=== PATIENT | male | born 1950 | race Caucasian/White ===

== ENCOUNTER → 2016-09-26 | Outpatient (CLI) | payer MEDICARE, BC | LOC: OD 15:32 | PROVIDERS: ATTEND Family Medicine | DX: E11.9 Type 2 diabetes mellitus without complications (principal) | CPT/HCPCS: 36415; 83036 ==

== ENCOUNTER → 2017-04-17 | Outpatient (CLI) | payer MEDICARE, BC ==
[2017-04-17 10:26] LABS: ANION GAP 15 (5-19); BLOOD UREA NITROGEN 14 mg/dL (7-20); CALCIUM 9.1 mg/dL (8.4-10.2); CARBON DIOXIDE 25 mmol/L (22-30); CHLORIDE 101 mmol/L (98-107); CHOLESTEROL 103.35 mg/dL (0-200); Direct HDL 38 mg/dL (>40); GLUCOSE 169 mg/dL (75-110); POTASSIUM 3.7 mmol/L (3.6-5.0); SODIUM 140.5 mmol/L (137-145); TRIGLYCERIDES 60 mg/dL (<150)
[2017-04-17 10:37] LABS: DIRECT LDL 58 mg/dL (<100)
== END ==
LOC: OD 08:49
PROVIDERS: ATTEND Family Medicine
DX: E03.9 Hypothyroidism, unspecified (principal); E11.9 Type 2 diabetes mellitus without complications; E78.5 Hyperlipidemia, unspecified; I10 Essential (primary) hypertension; N52.9 Male erectile dysfunction, unspecified; Z79.899 Other long term (current) drug therapy
CPT/HCPCS: 36415; 80048; 80061; 82043; 83036; 84153; 84443

== ENCOUNTER 2017-05-10 09:44 | Day surgery (SDC) | payer MEDICARE, BC ==
[~2017-05-10 09:44] MED LIST: KETOROLAC TROMETHAMINE 0.45% 4 DROP/0.4 ML DROPERETTE OD PRN
[2017-05-10] MEDS ORDERED: LIDOCAINE 1% INJ-PF (10 MG/ML) 30 ML SDV ONE (09:50)
[2017-05-10] MEDS ORDERED: EPINEPHRINE INJ/PF 1 MG/1 ML AMPULE ONE (09:50)
[2017-05-10] MEDS ORDERED: CHONDR SU A NA/HYALUR INTRAOC KIT (SURGICARE) ONE (09:50)
[2017-05-10] MEDS: CYCLOPENTOLATE 0.2%/PHENYLEPHRINE 1% OPH SOLN 2 ML OD PRN ×3 (10:21→10:41)
[2017-05-10] MEDS: BESIFLOXACIN HCL 0.6% OPH SUSP 5 ML BOTTLE OD PRN ×3 (10:21→11:29)
[2017-05-10] MEDS: TROPICAMIDE 1% OPH SOLN 3 ML OD PRN ×3 (10:21→10:41)
[2017-05-10] MEDS: TETRACAINE HCL 0.5% OPH SOLN 2 ML OD PRN ×3 (10:22→10:54)
[2017-05-10] MEDS ORDERED: MIDAZOLAM 2 MG/2 ML INJ ONE (10:50)
[2017-05-10] MEDS ORDERED: FENTANYL CITRATE INJ/PF 100 MCG/2 ML AMPUL ONE (10:51)
--- NOTE | 2017-05-10 19:09 | [facility] OPERATIVE REPORT E ---
[facility] Operative Report NAME: MALCOM KENNEDY AGE: 66Y DATE OF SURGERY: 05/10/2017 ROOM: PREOPERATIVE DIAGNOSIS: CATARACT, RIGHT EYE. POSTOPERATIVE DIAGNOSIS: CATARACT, RIGHT EYE. OPERATION: Cataract extraction with toric IOL. SURGEON: BERTHA SANTIAGO M.D. ANESTHESIA: Topical. PROCEDURE: After obtaining appropriate consent, the patient's @ eye was prepped and draped in sterile fashion as well as the surgeon in a sterile manner and cataract surgery was started. First a paracentesis blade was used to make a small side-port incision. Viscoelastic was used to inflate the anterior chamber. Next a 2.4 mm incision was made with the paracentesis blade. A continuous capsulorrhexis incision was made using a cystotome and Utrata forceps. Following this hydrodissection was carried out to make the lens fully loose and mobile and it was rotated 172 degrees. Following this, a hmwwmz-bng-jtwzcnl technique was used to phacoemulsify the lens with a CDE of 9.21. The remaining cortex was removed with irrigation/aspiration. Provisc was instilled into the capsular bag to inflate the bag. A SN6AT7, 21.0 diopter lens was placed. The remaining viscoelastic material was removed with irrigation/aspiration. Following this, a 10-0 nylon suture was used to close the incision and it was found to be watertight. Vigamox was instilled in the eye and a protective shield was placed over the eye. The patient returned to the postoperative recovery in stable condition. DICTATING PHYSICIAN: BERTHA SANTIAGO M.D. [id number] PHY#: [id number] ID: [id number] JOB#: [id number] ACCT: [id number] cc:BERTHA SANTIAGO M.D. >
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
== END 2017-05-10 12:20 | disposition home or self-care (01) ==
LOC: SC 09:44
PROVIDERS: ATTEND Internal Medicine
PROC: 08RJ3JZ Replacement of Right Lens with Synthetic Substitute, Percutaneous Approach (ICD-10-PCS; principal; 2017-05-10 11:30)
DX: H25.11 Age-related nuclear cataract, right eye (principal); E11.9 Type 2 diabetes mellitus without complications; M19.90 Unspecified osteoarthritis, unspecified site; E03.9 Hypothyroidism, unspecified; I10 Essential (primary) hypertension; D64.9 Anemia, unspecified; Z79.82 Long term (current) use of aspirin; Z79.899 Other long term (current) drug therapy; Z86.73 Personal history of transient ischemic attack (TIA), and cerebral infarction without residual deficits
CPT/HCPCS: 82962; 66984; V2632; J2250; J3490 ×2; A9270; J0171; J3010; 142

== ENCOUNTER → 2017-05-14 | Outpatient (CLI) | payer MEDICARE, BC ==
--- NOTE | 2017-05-14 14:55 | RADIOLOGY REPORT (SQ) ---
EXAM DESCRIPTION: CAROTID DOPPLER COMPLETED DATE/TIME: 05/14/2017 11:45 am REASON FOR STUDY: R09.89 R09.89 OTH SYMPTOMS AND SIGNS INVOLVING THE CIRC AND RESP SY COMPARISON: CT BRAIN 04/17/2007 TECHNIQUE: Grayscale ultrasound, Doppler velocity and spectra, and color Doppler images acquired of the extra-cranial carotid and vertebral arteries. Images stored on PACS. LIMITATIONS: None. FINDINGS: RIGHT CAROTID CCA Velocities: Within normal limits. ICA Velocities Peak systolic 0.51 m/s. End diastolic 0.17 m/s. Proximal ICA/CCA peak systolic ratio 1.1. There is calcific plaque at the right carotid bifurcation. Immediately distal to the shadowing plaqu e, velocities suggest against flow significant stenosis LEFT CAROTID CCA Velocities: Within normal limits. ICA Velocities Peak systolic 0.63 m/s. End diastolic 0.23 m/s. Proximal ICA/CCA peak systolic ratio 0.9. There is calcific and noncalcific plaque at the left carotid bifurcation. Immediately distal to the shadowing plaque, velocities suggest against flow significant stenosis VERTEBRAL ARTERIES: Antegrade flow. Normal waveforms. SUBCLAVIAN ARTERIES: Not evaluated OTHER: No other significant finding. IMPRESSION: NO HEMODYNAMICALLY SIGNIFICANT STENOSIS. COMMENT: Quality ID #[id number]: Velocity criteria are extrapolated from the diameter data as defined by t he Society of Radiologists in Ultrasound Consensus Conference. Radiology 2003: 229; 340-346. TECHNICAL DOCUMENTATION: JOB ID: [id number] [employer]- All Rights Reserved
== END ==
LOC: SP 10:49
PROVIDERS: ATTEND Internal Medicine Nephrology
DX: R09.89 Other specified symptoms and signs involving the circulatory and respiratory systems (principal)
CPT/HCPCS: 93880

== ENCOUNTER → 2017-06-05 | Outpatient (CLI) | payer MEDICARE, BC ==
[2017-06-05 10:18] LABS: APPEARANCE,URINE CLEAR; BILIRUBIN,URINE NEGATIVE (NEGATIVE); COLOR,URINE YELLOW; GLUCOSE, URINE NEGATIVE (NEGATIVE); KETONES,URINE NEGATIVE (NEGATIVE); LEUKOCYTE ESTERASE,URINE NEGATIVE (NEGATIVE); NITRITE,URINE NEGATIVE (NEGATIVE); PROTEIN,URINE 100 mg/dL (NEGATIVE); URINE SPECIFIC GRAVITY 1.015
[2017-06-05 10:24] LABS: ABSOLUTE EOSINOPHILS # (AUTO) 0.1 10^3/uL (0.0-0.6); ABSOLUTE LYMPHOCYTES (AUTO) 0.9 10^3/uL (0.5-4.7); ABSOLUTE MONOCYTES (AUTO) 0.8 10^3/uL (0.1-1.4); ABSOLUTE NEUT (AUTO) 6.1 10^3/uL (1.7-8.2); BASOPHILS % (AUTO) 0.4 % (0-2); HEMATOCRIT 36.4 % (37.9-51.0); HEMOGLOBIN 11.9 g/dL (13.5-17.0); LYMPHOCYTES % (AUTO) 11.5 % (13-45); MEAN CORPUSCULAR HGB CONC 32.9 g/dL (32.0-36.0); MEAN CORPUSCULAR VOLUME 82 fl (80-97); MONOCYTES % (AUTO) 10.6 % (3-13); PLATELET COUNT 122 10^3/uL (150-450); RED BLOOD COUNT 4.43 10^6/uL (4.35-5.55); RED CELL DISTRIBUTION WIDTH 16.2 % (11.5-14.0); SEGMENTED NEUTROPHILS % (AUTO) 76.5 % (42-78); TOTAL CELLS COUNTED % (AUTO) 100 %
[2017-06-05 10:55] LABS: ALANINE AMINOTRANSFERASE 37 U/L (21-72); ALBUMIN 4.3 g/dL (3.5-5.0); ALKALINE PHOSPHATASE 167 U/L (38-126); ANION GAP 14 (5-19); ASPARTATE AMINO TRANSFERASE 24 U/L (17-59); BILIRUBIN,DIRECT 0.5 mg/dL (0.0-0.4); BILIRUBIN,TOTAL 0.7 mg/dL (0.2-1.3); BLOOD UREA NITROGEN 17 mg/dL (7-20); CALCIUM 9.3 mg/dL (8.4-10.2); CARBON DIOXIDE 25 mmol/L (22-30); CHLORIDE 100 mmol/L (98-107); GLUCOSE 166 mg/dL (75-110); POTASSIUM 4.3 mmol/L (3.6-5.0); SODIUM 138.8 mmol/L (137-145); TOTAL PROTEIN 7.3 g/dL (6.3-8.2)
== END ==
LOC: OD 08:46
PROVIDERS: ATTEND Internal Medicine Nephrology
DX: R80.9 Proteinuria, unspecified (principal); E11.9 Type 2 diabetes mellitus without complications; I10 Essential (primary) hypertension
CPT/HCPCS: 36415; 80053; 81001; 85025

== ENCOUNTER 2017-06-07 06:37 | Day surgery (SDC) | payer MEDICARE, BC ==
[~2017-06-07 06:37] MED LIST changes: -KETOROLAC TROMETHAMINE 0.45% 4 DROP/0.4 ML DROPERETTE OD PRN; +KETOROLAC TROMETHAMINE 0.45% 4 DROP/0.4 ML DROPERETTE OS PRN
[2017-06-07] MEDS: TROPICAMIDE 1% OPH SOLN 3 ML OS PRN ×3 (07:04→07:37)
[2017-06-07] MEDS: CYCLOPENTOLATE 0.2%/PHENYLEPHRINE 1% OPH SOLN 2 ML OS PRN ×3 (07:04→07:37)
[2017-06-07] MEDS: BESIFLOXACIN HCL 0.6% OPH SUSP 5 ML BOTTLE OS PRN ×4 (07:05→08:35)
[2017-06-07] MEDS: TETRACAINE HCL 0.5% OPH SOLN 2 ML OS PRN ×4 (07:06→08:09)
[2017-06-07] MEDS ORDERED: EPINEPHRINE INJ/PF 1 MG/1 ML AMPULE ONE (07:11)
[2017-06-07] MEDS ORDERED: CHONDR SU A NA/HYALUR INTRAOC KIT (SURGICARE) ONE (07:11)
[2017-06-07] MEDS ORDERED: LIDOCAINE 1% INJ-PF (10 MG/ML) 30 ML SDV ONE (07:11)
[2017-06-07] MEDS ORDERED: MIDAZOLAM 2 MG/2 ML INJ ONE (07:19)
--- NOTE | 2017-06-07 19:14 | [facility] OPERATIVE REPORT E ---
[facility] Operative Report NAME: MALCOM KENNEDY AGE: 66Y DATE OF SURGERY: 06/07/2017 ROOM: PREOPERATIVE DIAGNOSIS: CATARACT, LEFT EYE. POSTOPERATIVE DIAGNOSIS: CATARACT, LEFT EYE. OPERATION: Cataract extraction with intraocular lens implant of the left eye with a toric multifocal lens. SURGEON: BERTHA SANTIAGO M.D. ANESTHESIA: Topical. COMPLICATIONS: None. ESTIMATED BLOOD LOSS: None. PROCEDURE: After appropriate consent was obtained and calculations made, the patient was brought back to the operating room where the patient was prepped and draped in sterile fashion. A lid speculum was placed and attention was directed to a paracentesis where a paracentesis blade made a small incision. Viscoelastic was then used to inflate the anterior chamber. Next, a 2.4 mm incision was made with the paracentesis blade. A continuous capsulorhexis forceps of approximately 5 mm was done using a cystitome and capsulorhexis forceps. Hydrodissection was carried out to make the lens freely mobile and then a divide and conquer technique was used to remove the lens with a CDE of approximately 7.93. Following this, the remaining cortical material was removed with irrigation/aspiration. After this the patient was then again marked. The marking procedure started in the preoperative holding area where 180 and 0 was marked with a marker. A toric lens of left 22.0 diopters [id number] rotated to 4 degrees was injected into the bag after filling with viscoelastic and rotating into proper position. The I/A was used to remove the viscoelastic material and the toric lens appeared to be appropriately aligned. besivance and a rigid sheild were placed. The patient returned to postoperative recovery in stable condition. DICTATING PHYSICIAN: BERTHA SANTIAGO M.D. [id number] PHY#: [id number] ID: [id number] JOB#: [id number] ACCT: [id number] cc:BERTHA SANTIAGO M.D. > MTDMike
--- NOTE | 2017-06-07 19:19 | DISCHARGE SUMMARY E ---
Discharge Summary NAME: MALCOM KENNEDY : 1950 AGE: 66Y ADMITTED: 06/07/2017 DISCHARGED: 06/07/2017 HISTORY: This is a 66-year-old male who underwent cataract extraction with Toric IOL of the left eye. DIAGNOSIS: Left eye. HOSPITAL COURSE: He underwent surgery because he has imbalance between both eyes. He should be on a regular diet. No bending at his waist. No heavy lifting. He should use his Besivance, Ilevro, and Durezol at 3:00 p.m. and 8:00 p.m., should sleep with a rigid shield, and I will see his for a 1-day postoperative tomorrow. DICTATING PHYSICIAN: BERTHA SANTIAGO M.D. [id number] PHY#: [id number] ID: [id number] JOB#: [id number] ACCT: [id number] cc:BERTHA SANTIAGO M.D. >
== END 2017-06-07 09:21 | disposition home or self-care (01) ==
LOC: SC 06:37
PROVIDERS: ATTEND Internal Medicine
PROC: 08RK3JZ Replacement of Left Lens with Synthetic Substitute, Percutaneous Approach (ICD-10-PCS; principal; 2017-06-07 08:00)
DX: H25.12 Age-related nuclear cataract, left eye (principal); Z96.1 Presence of intraocular lens; I10 Essential (primary) hypertension; I49.9 Cardiac arrhythmia, unspecified; E11.9 Type 2 diabetes mellitus without complications; K21.9 Gastro-esophageal reflux disease without esophagitis; E07.9 Disorder of thyroid, unspecified; I25.2 Old myocardial infarction; Z79.84 Long term (current) use of oral hypoglycemic drugs; Z88.8 Allergy status to other drugs, medicaments and biological substances; Z86.73 Personal history of transient ischemic attack (TIA), and cerebral infarction without residual deficits; Z95.2 Presence of prosthetic heart valve
CPT/HCPCS: 66984; 82962; V2787; J2250; J3490 ×2; A9270; J0171; 142

== ENCOUNTER → 2017-08-06 | Outpatient (CLI) | payer MEDICARE, BC ==
[2017-08-06 09:01] LABS: HEMATOCRIT 37.3 % (37.9-51.0); HEMOGLOBIN 12.6 g/dL (13.5-17.0); MEAN CORPUSCULAR HEMOGLOBIN 27.8 pg (27.0-33.4); MEAN CORPUSCULAR HGB CONC 33.8 g/dL (32.0-36.0); MEAN CORPUSCULAR VOLUME 83 fl (80-97); PLATELET COUNT 136 10^3/uL (150-450); RED BLOOD COUNT 4.52 10^6/uL (4.35-5.55); RED CELL DISTRIBUTION WIDTH 15.9 % (11.5-14.0); WHITE BLOOD COUNT 7.6 10^3/uL (4.0-10.5)
[2017-08-06 09:03] LABS: APPEARANCE,URINE CLEAR; BILIRUBIN,URINE NEGATIVE (NEGATIVE); COLOR,URINE YELLOW; GLUCOSE, URINE 50 mg/dL (NEGATIVE); KETONES,URINE NEGATIVE (NEGATIVE); LEUKOCYTE ESTERASE,URINE NEGATIVE (NEGATIVE); NITRITE,URINE NEGATIVE (NEGATIVE); PROTEIN,URINE 100 mg/dL (NEGATIVE); URINE SPECIFIC GRAVITY 1.016
[2017-08-06 09:22] LABS: ANION GAP 12 (5-19); BLOOD UREA NITROGEN 25 mg/dL (7-20); CALCIUM 9.6 mg/dL (8.4-10.2); CARBON DIOXIDE 27 mmol/L (22-30); CHLORIDE 97 mmol/L (98-107); GLUCOSE 329 mg/dL (75-110); POTASSIUM 3.9 mmol/L (3.6-5.0); SODIUM 136.3 mmol/L (137-145)
[2017-08-06 09:27] LABS: UR PRO/CREAT RATIO RESULT 1.4 mg/mg (0.0-0.2); URINE CREATININE 94.2 mg/dL (22-328); URINE PROTEIN 133.5 mg/dL (<12)
== END ==
LOC: OD 08:05
PROVIDERS: ATTEND Internal Medicine Nephrology
DX: E11.9 Type 2 diabetes mellitus without complications (principal); R80.9 Proteinuria, unspecified; I10 Essential (primary) hypertension; R60.9 Edema, unspecified
CPT/HCPCS: 36415; 80048; 81001; 82570; 84156; 85027

== ENCOUNTER → 2017-10-18 | Outpatient (CLI) | payer MEDICARE, BC | LOC: OD 10:38 | PROVIDERS: ATTEND Family Medicine | DX: E11.65 Type 2 diabetes mellitus with hyperglycemia (principal) | CPT/HCPCS: 36415; 83036 ==

== ENCOUNTER 2017-11-30 14:46 | Inpatient (IN) | payer MEDICARE, BC ==
[~2017-11-30 14:46] MED LIST changes: +CEFEPIME 2 GM/D5W RTU 2 GM/50 ML RTUPB IV SCH; -KETOROLAC TROMETHAMINE 0.45% 4 DROP/0.4 ML DROPERETTE OS PRN
--- NOTE | 2017-11-30 15:29 | ER Document Report ---
ED Medical Screen (RME) - General Chief Complaint: Breathing Difficulty Stated Complaint: DIFFICULTY BREATHING Time Seen by Provider: 11/30/17 15:18 Notes: RAPID MEDICAL EVALUATION DISCLOSURE I have seen this patient as part of a Rapid Medical Evaluation and, if applicable, placed any initially appropriate orders. The patient will be seen and fully evaluated, including a full history and physical exam, by a provider ( in Main ED or Fast Track) when a room becomes available. 67-year-old here with complaints of shortness of breath ongoing for the past 10 days. He was diagnosed with pneumonia and was placed on Levaquin however only has 1 more day left. However he is here today because his shortness of breath persists. He does not have any chest pain. However states he has no more leg swelling than he usually does. EXAM Bibasilar rhonchi/rales RRR TRAVEL OUTSIDE OF THE [place] IN LAST 30 DAYS: No - Related Data Allergies/Adverse Reactions: lisinopril Adverse Reaction (Intermediate, Verified 05/10/17 10:33) COUGH, MUCOUS Past Medical History - Social History Chew tobacco use (# tins/day): No Frequency of alcohol use: None Drug Abuse: None - Past Medical History Cardiac Medical History: Reports: Hx Heart Attack - 06/08, Hx Hypercholesterolemia, Hx Hypertension - MEDICATED Pulmonary Medical History: Denies: Hx Asthma Neurological Medical History: Reports: Hx Cerebrovascular Accident - 2011, Hx Seizures - DX A CHILD/off meds x 1 year-NO SEIZURES IN 25 YRS Endocrine Medical History: Reports: Hx Diabetes Mellitus Type 2 Renal/ Medical History: Denies: Hx Peritoneal Dialysis GI Medical History: Reports: Hx Gastroesophageal Reflux Disease, Hx Hiatal Hernia, Hx Ulcer - hx of 2012/RESOLVED. Denies: Hx Hepatitis Infectious Medical History: Denies: Hx Hepatitis Past Surgical History: Reports: Hx Open Heart Surgery. Denies: Hx Pacemaker - Immunizations Hx Diphtheria, Pertussis, Tetanus Vaccination: No Physical Exam - Vital signs Vitals: Temp Pulse Resp BP Pulse Ox 98.7 F 79 20 112/66 94 11/30/17 14:55 11/30/17 14:55 11/30/17 14:55 11/30/17 14:55 11/30/17 14:55 Course - Vital Signs Vital signs: Temp Pulse Resp BP Pulse Ox 98.7 F 79 20 112/66 94 11/30/17 14:55 11/30/17 14:55 11/30/17 14:55 11/30/17 14:55 11/30/17 14:55 Doctor's Discharge - Discharge Referrals: CHELSEA GIRON MD [Primary Care Provider] - Follow up as needed
--- NOTE | 2017-11-30 15:53 | RADIOLOGY REPORT (SQ) ---
EXAM DESCRIPTION: CHEST 2 VIEWS COMPLETED DATE/TIME: 11/30/2017 3:41 pm REASON FOR STUDY: SOB; eval pneumonia vs edema COMPARISON: Chest film 09/04/2015, 08/03/2011, 05/29/2011 EXAM PARAMETERS: NUMBER OF VIEWS: two views TECHNIQUE: Digital Frontal and Lateral radiographic views of the chest acquired. RADIATION DOSE: NA LIMITATIONS: none FINDINGS: LUNGS AND PLEURA: Patchy bilateral airspace disease right greater than left worrisome for asymmetric edema versus pneumonia. No gross pleural effusion. No pneumothorax. MEDIASTINUM AND HILAR STRUCTURES: No masses or contour abnormalities. HEART AND VASCULAR STRUCTURES: Stable mild cardiomegaly. Old sternotomy and aortic valve replacement BONES: No acute findings. HARDWARE: None in the chest. OTHER: No other significant finding. IMPRESSION: Patchy bilateral airspace disease right greater than left, edema versus pneumonia TECHNICAL DOCUMENTATION: JOB ID: [id number] [employer]- All Rights Reserved Reading location - IP/workstation name: [email or web address]
--- NOTE | 2017-11-30 16:20 | ER Document Report ---
ED General - General Chief Complaint: Breathing Difficulty Stated Complaint: DIFFICULTY BREATHING Time Seen by Provider: 11/30/17 15:18 Mode of Arrival: Ambulatory Information source: Patient, Relative Notes: 67 yr old male hx of copd presents with 1 week duration of pneumonia, on levaquin 750 daily by pcp with wifes concerns of confusion, decreased appetite, drops in blood sugar . Pt has taken 9 days of levaquin, has hx of afib as well. pt noted ot have glucose today of 34 ems was called to the house. notes he has not been eating well, has been very confused, cant remember how to use his own cpap. TRAVEL OUTSIDE OF THE [place] IN LAST 30 DAYS: No - HPI Onset: Last week Onset/Duration: Persistent, Worse Quality of pain: No pain Severity: Mild Pain Level: Denies Associated symptoms: Shortness of breath, Weakness, Other Exacerbated by: Walking Relieved by: Denies Similar symptoms previously: Yes Recently seen / treated by doctor: Yes - Related Data Allergies/Adverse Reactions: lisinopril Adverse Reaction (Intermediate, Verified 05/10/17 10:33) COUGH, MUCOUS Past Medical History - Social History Smoking Status: Never Smoker Cigarette use (# per day): No Chew tobacco use (# tins/day): No Smoking Education Provided: No Frequency of alcohol use: None Drug Abuse: None Family History: Reviewed & Not Pertinent Patient has suicidal ideation: No Patient has homicidal ideation: No - Past Medical History Cardiac Medical History: Reports: Hx Heart Attack - 06/08, Hx Hypercholesterolemia, Hx Hypertension - MEDICATED Pulmonary Medical History: Denies: Hx Asthma Neurological Medical History: Reports: Hx Cerebrovascular Accident - 2011, Hx Seizures - DX A CHILD/off meds x 1 year-NO SEIZURES IN 25 YRS Endocrine Medical History: Reports: Hx Diabetes Mellitus Type 2 Renal/ Medical History: Denies: Hx Peritoneal Dialysis GI Medical History: Reports: Hx Gastroesophageal Reflux Disease, Hx Hiatal Hernia, Hx Ulcer - hx of 2012/RESOLVED. Denies: Hx Hepatitis Infectious Medical History: Denies: Hx Hepatitis Past Surgical History: Reports: Hx Open Heart Surgery. Denies: Hx Pacemaker - Immunizations Hx Diphtheria, Pertussis, Tetanus Vaccination: No Review of Systems - Review of Systems Notes: REVIEW OF SYSTEMS: CONSTITUTIONAL : Denies fever, chills, or sweats. Denies recent illness. EENT: Denies eye, ear, throat, or mouth pain or symptoms. Denies nasal or sinus congestion or discharge. Denies throat, tongue, or mouth swelling or difficulty swallowing. CARDIOVASCULAR: Denies chest pain. Denies palpitations or racing or irregular heart beat. Denies ankle edema. RESPIRATORY: admits to cough, congestion sob GASTROINTESTINAL: Denies abdominal pain or distention. Denies nausea, vomiting , or diarrhea. Denies blood in vomitus, stools, or per rectum. Denies black, tarry stools. Denies constipation. GENITOURINARY: Denies difficulty urinating, painful urination, burning, frequency, blood in urine, or discharge. FEMALE GENITOURINARY: Denies vaginal bleeding, heavy or abnormal periods, irregular periods. Denies vaginal discharge or odor. MUSCULOSKELETAL: Denies back or neck pain or stiffness. Denies joint pain or swelling. SKIN: Denies rash, lesions or sores. HEMATOLOGIC : Denies easy bruising or bleeding. LYMPHATIC: Denies swollen, enlarged glands. NEUROLOGICAL: admits to confusion PSYCHIATRIC: Denies anxiety or stress. Denies depression, suicidal ideation, or homicidal ideation. ALL OTHER SYSTEMS REVIEWED AND NEGATIVE. PHYSICAL EXAMINATION: GENERAL: ill appearing drowsy male HEAD: Atraumatic, normocephalic. EYES: Pupils equal round and reactive to light, extraocular movements intact, conjunctiva are normal. ENT: Nares patent, oropharynx clear without exudates. Moist mucous membranes. NECK: Normal range of motion, supple without lymphadenopathy LUNGS: coarse rhonchi HEART: irregular rate and rhythm without murmurs ABDOMEN: Soft, nontender, nondistended abdomen. No guarding, no rebound. No masses appreciated. Female : deferred Musculoskeletal: Normal range of motion, no pitting or edema. No cyanosis. NEUROLOGICAL: Cranial nerves grossly intact. Normal speech, normal gait. Normal sensory, motor exams PSYCH: Normal mood, normal affect. SKIN: Warm, Dry, normal turgor, no rashes or lesions noted. Dictation was performed using [employer] voice recognition software Physical Exam - Vital signs Vitals: Temp Pulse Resp BP Pulse Ox 98.7 F 79 20 112/66 94 11/30/17 14:55 11/30/17 14:55 11/30/17 14:55 11/30/17 14:55 11/30/17 14:55 Course - Re-evaluation Re-evalutation: 11/30/17 16:20 Patient has probable worsening pneumonia, he is drowsy and confused intermittently. I will order septic workup 11/30/17 17:57 There is no the patient is white count 22,000, she has pneumonia on x-ray, the troponin is elevated and I believe this is more stress related to hemoglobin 7.9 I initially ordered to transfuse but I will hold off at this time as he is not actively bleeding, I will admit to the [facility] the hospital service - Vital Signs Vital signs: Temp Pulse Resp BP Pulse Ox 98.7 F 79 20 112/66 97 11/30/17 14:55 11/30/17 14:55 11/30/17 14:55 11/30/17 14:55 11/30/17 17:00 - Laboratory Result Diagrams: 11/30/17 15:51 11/30/17 15:51 Laboratory results interpreted by me: 11/30/17 11/30/17 11/30/17 15:51 15:51 15:51 WBC 21.7 H RBC 2.89 L Hgb 7.9 L Hct 23.8 L RDW 15.9 H Seg Neuts % (Manual) 82 H Band Neutrophils % 1 L Lymphocytes % (Manual) 10 L Metamyelocytes % 1 H Abs Neuts (Manual) 18.2 H VBG pH VBG pCO2 Sodium 132.5 L Potassium 3.5 L Chloride 96 L Est GFR (Non-Af Amer) 59 L Calcium 8.3 L Direct Bilirubin 0.7 H AST 124 H ALT 138 H Alkaline Phosphatase 153 H NT-Pro-B Natriuret Pep 3370 H Albumin 3.3 L 11/30/17 16:01 WBC RBC Hgb Hct RDW Seg Neuts % (Manual) Band Neutrophils % Lymphocytes % (Manual) Metamyelocytes % Abs Neuts (Manual) VBG pH 7.46 H VBG pCO2 33.1 L Sodium Potassium Chloride Est GFR (Non-Af Amer) Calcium Direct Bilirubin AST ALT Alkaline Phosphatase NT-Pro-B Natriuret Pep Albumin - Diagnostic Test Radiology reviewed: Reports reviewed Discharge - Discharge Clinical Impression: Pneumonia Qualifiers: Pneumonia type: due to unspecified organism Laterality: right Lung location: unspecified part of lung Qualified Code(s): J18.9 - Pneumonia, unspecified organism Condition: Fair Disposition: ADMITTED INPATIENT Admitting Provider: Hospitalist Unit Admitted: IMCU Referrals: CHELSEA GIRON MD [Primary Care Provider] - Follow up as needed
[2017-11-30 16:31] LABS: VENOUS BLOOD BASE EXCESS -0.2 mmol/L; VENOUS BLOOD HCO3 22.9 mmol/L (20-32); VENOUS BLOOD PCO2 33.1 mmHg (35-63); VENOUS BLOOD PH 7.46 (7.30-7.42)
[2017-11-30 16:32] LABS: HEMATOCRIT 23.8 % (37.9-51.0); MEAN CORPUSCULAR HEMOGLOBIN 27.2 pg (27.0-33.4); MEAN CORPUSCULAR VOLUME 83 fl (80-97); PLATELET COUNT 357 10^3/uL (150-450); RED BLOOD COUNT 2.89 10^6/uL (4.35-5.55); RED CELL DISTRIBUTION WIDTH 15.9 % (11.5-14.0); WHITE BLOOD COUNT 21.7 10^3/uL (4.0-10.5)
[2017-11-30 16:49] LABS: ALANINE AMINOTRANSFERASE 138 U/L (21-72); ALBUMIN 3.3 g/dL (3.5-5.0); ALKALINE PHOSPHATASE 153 U/L (38-126); ANION GAP 11 (5-19); ASPARTATE AMINO TRANSFERASE 124 U/L (17-59); BILIRUBIN,DIRECT 0.7 mg/dL (0.0-0.4); BILIRUBIN,TOTAL 0.9 mg/dL (0.2-1.3); BLOOD UREA NITROGEN 14 mg/dL (7-20); CALCIUM 8.3 mg/dL (8.4-10.2); CARBON DIOXIDE 26 mmol/L (22-30); CHLORIDE 96 mmol/L (98-107); GLUCOSE 79 mg/dL (75-110); POTASSIUM 3.5 mmol/L (3.6-5.0); SODIUM 132.5 mmol/L (137-145); TOTAL PROTEIN 6.4 g/dL (6.3-8.2)
[2017-11-30 16:58] LABS: ABSOLUTE LYMPHOCYTES# (MANUAL) 2.2 10^3/uL (0.5-4.7); ABSOLUTE MONOCYTES # (MANUAL) 1.3 10^3/uL (0.1-1.4); ABSOLUTE NEUTROPHILS# (MANUAL) 18.2 10^3/uL (1.7-8.2); BAND NEUTROPHILS % (MANUAL) 1 % (3-5); BASOPHILS % (MANUAL) 0 % (0-2); EOSINOPHILS % (MANUAL) 0 % (0-6); LYMPHOCYTES % (MANUAL) 10 % (13-45); METAMYELOCYTES % (MANUAL) 1 % (0); MONOCYTES % (MANUAL) 6 % (3-13); SEGMENTED NEUTROPHILS % (MAN) 82 % (42-78); TOTAL CELLS COUNTED 100
[2017-11-30 17:02] LABS: ANISOCYTOSIS SLIGHT; OVALOCYTES SLIGHT; PLATELET COMMENT ADEQUATE; POIKILOCYTOSIS SLIGHT; POLYCHROMASIA SLIGHT
[2017-11-30 17:04] LABS: HEMOGLOBIN 7.9 g/dL (13.5-17.0)
[2017-11-30] MEDS ORDERED: NORMAL SALINE 250 ML IV PRN ×2 (17:04)
[2017-11-30 17:08] LABS: TROPONIN I 0.313 ng/mL
[2017-11-30] MEDS ORDERED: CEFTRIAXONE 1 GM/D5W RTU 1 GM/50 ML RTUPB IV ONE (17:13)
[2017-11-30] MEDS ORDERED: ONDANSETRON 4 MG TAB.RAPDIS PO PRN (17:39)
[2017-11-30] MEDS ORDERED: GLUCAGON,HUMAN RECOMB 1 MG INJ IM PRN (17:50)
[2017-11-30] MEDS ORDERED: DEXTROSE 50%-WATER 25 GM/50 ML DISP.SYRIN IV PRN ×2 (17:50)
[2017-11-30] MEDS ORDERED: DEXTROSE 40% GEL 15 GM TUBE PO PRN ×2 (17:50)
[2017-11-30] MEDS ORDERED: CEFTRIAXONE SODIUM 1,000 MG in DEXTROSE 5%-WATER 50 ML IV ONE (18:00)
[2017-11-30] MEDS ORDERED: VANCOMYCIN HCL 0 MG in DEXTROSE 5%-WATER 250 ML IV NR (18:00)
--- NOTE | 2017-11-30 18:09 | PDOC H&P ---
History of Present Illness Admission Date/PCP: CHELSEA GIRON MD History of Present Illness: MALCOM KENNEDY JR is a 67 year old male with multiple comorbidities including A. fib, HTN, HLD, type 2 diabetes mellitus, RIN, morbid obesity, coronary artery disease, history of stroke and seizure, COPD and status post bioprosthetic aortic valve replacement. Patient brought by EMS with chief complaint of shortness of breath, confusion, poor oral intake and an episode of hypoglycemia with blood sugar of 34. Since patient is somewhat confused and sleepy he is not source of history. Brief history is obtained from his who is in the room during my encounter in the ER attending note. Reportedly patient had pneumonia 10 days ago and he was prescribed with Levaquin 750 mg p.o. daily for 10 days by his primary care physician and he took 9 out of 10 of his Levaquin. Reportedly, patient has associated cough productive of yellowish sputum but no fever, chest pain, palpitation or diaphoresis. Further detailed history and review of system could not be obtained. Past Medical History Cardiac Medical History: Reports: Myocardial Infarction - 06/08, Hyperlipidema, Hypertension - MEDICATED Pulmonary Medical History: Denies: Asthma Neurological Medical History: Reports: Seizures - DX A CHILD/off meds x 1 year-NO SEIZURES IN 25 YRS Endocrine Medical History: Reports: Diabetes Mellitus Type 2 GI Medical History: Reports: Gastroesophageal Reflux Disease, Hiatal Hernia Denies: Hepatitis Hematology: Reports: Anemia - 2011 Denies: Sickle Cell Disease Past Surgical History Past Surgical History: Reports: Other - Bioprosthetic aortic valve replacement Denies: Pacemaker Social History Smoking Status: Former Smoker Frequency of Alcohol Use: None Hx Recreational Drug Use: No Drugs: None - Advance Directive Resuscitation Status: Full Code Family History Family History: Reviewed & Not Pertinent Parental Family History Reviewed: Yes Children Family History Reviewed: Yes Sibling(s) Family History Reviewed.: Yes Medication/Allergy Home Medications: Esomeprazole Mag Trihydrate [Nexium] 40 mg PO DAILY 05/29/11 Metoprolol Tartrate [Lopressor 100 Mg Tablet] 75 mg PO DAILY 05/29/11 Multivitamin [Multiple Vitamins] 1 each PO DAILY 05/29/11 Sitagliptin Phos/Metformin HCl [Janumet 50-1,000 Mg Tablet] 1 each PO BID Valsartan/Hydrochlorothiazide [Diovan Hct 160-12.5 mg Tab] 1 tab PO DAILY Apixaban [Eliquis] 5 mg PO BID 05/08/17 Gatifloxacin/Prednisolone [Prednisolone 1%-Gatiflox 0.5%] 1 drop OP ASDIR Ketorolac Tromethamine 0.45% [Acuvail 0.45% Oph Soln 0.4 ml/Dropperette] 1 drop OD ASDIR 05/08/17 Levothyroxine Sodium [Synthroid 0.1 mg Tablet] 0.1 mg PO DAILY 05/08/17 Losartan Potassium [Cozaar 50 mg Tablet] 50 mg PO DAILY 05/08/17 Metformin HCl [Metformin HCl ER] 500 mg PO BID 05/08/17 Metoprolol Tartrate [Lopressor 25 mg Tablet] 25 mg PO DAILY 05/08/17 Moxifloxacin HCl [Vigamox] 1 drop OP ASDIR 05/08/17 Ketorolac Tromethamine 1 drop OP .12, 3 & 8 PM TODAY 06/07/17 Moxifloxacin HCl [Vigamox 0.5% Oph Soln 3 ml] 1 drop OP .12, 3 & 8 PM TODAY PRN 06/07/17 Prednisolone Acetate [Pred Forte] 15 ml OP .12, 3 & 8 PM TODAY 06/07/17 Allergies/Adverse Reactions: lisinopril Adverse Reaction (Intermediate, Verified 05/10/17 10:33) COUGH, MUCOUS Review of Systems ROS unobtainable: Due to mental status Physical Exam Vital Signs: Temp Pulse Resp BP Pulse Ox 98.7 F 79 20 112/66 97 11/30/17 14:55 11/30/17 14:55 11/30/17 14:55 11/30/17 14:55 11/30/17 17:00 Intake & Output 11/29/17 11/30/17 12/01/17 06:59 06:59 06:59 Weight 144.6 kg General appearance: PRESENT: other - Moderate respiratory distress Eye exam: PRESENT: conjunctiva pink Mouth exam: PRESENT: dry mucosa Neck exam: ABSENT: carotid bruit, JVD, lymphadenopathy, thyromegaly Respiratory exam: PRESENT: crackles - Both lung angulo, rhonchi Cardiovascular exam: PRESENT: RRR. ABSENT: diastolic murmur, rubs, systolic murmur GI/Abdominal exam: PRESENT: normal bowel sounds, soft, other - Morbidly obese. ABSENT: distended, guarding, mass, organolmegaly, rebound, tenderness Extremities exam: PRESENT: full ROM. ABSENT: calf tenderness, clubbing, pedal edema Neurological exam: PRESENT: altered Psychiatric exam: PRESENT: flat affect Results Laboratory Results: 11/30/17 15:51 11/30/17 15:51 11/30/17 11/30/17 11/30/17 15:51 15:51 15:51 WBC 21.7 H RBC 2.89 L Hgb 7.9 L Hct 23.8 L MCV 83 MCH 27.2 MCHC 33.0 RDW 15.9 H Plt Count 357 Seg Neutrophils % Not Reportable Lymphocytes % Not Reportable Monocytes % Not Reportable Eosinophils % Not Reportable Basophils % Not Reportable Absolute Neutrophils Not Reportable Absolute Lymphocytes Not Reportable Absolute Monocytes Not Reportable Absolute Eosinophils Not Reportable Absolute Basophils Not Reportable VBG pH VBG pCO2 VBG HCO3 VBG Base Excess Sodium 132.5 L Potassium 3.5 L Chloride 96 L Carbon Dioxide 26 Anion Gap 11 BUN 14 Creatinine 1.23 Est GFR ( Amer) > 60 Est GFR (Non-Af Amer) 59 L Glucose 79 Lactic Acid 1.3 Calcium 8.3 L Total Bilirubin 0.9 AST 124 H ALT 138 H Alkaline Phosphatase 153 H Total Protein 6.4 Albumin 3.3 L 11/30/17 16:01 WBC RBC Hgb Hct MCV MCH MCHC RDW Plt Count Seg Neutrophils % Lymphocytes % Monocytes % Eosinophils % Basophils % Absolute Neutrophils Absolute Lymphocytes Absolute Monocytes Absolute Eosinophils Absolute Basophils VBG pH 7.46 H VBG pCO2 33.1 L VBG HCO3 22.9 VBG Base Excess -0.2 Sodium Potassium Chloride Carbon Dioxide Anion Gap BUN Creatinine Est GFR ( Amer) Est GFR (Non-Af Amer) Glucose Lactic Acid Calcium Total Bilirubin AST ALT Alkaline Phosphatase Total Protein Albumin 11/30/17 15:51 Troponin I 0.313 NT-Pro-B Natriuret Pep 3370 H Impressions: Chest X-Ray 11/30/17 15:24 IMPRESSION: Patchy bilateral airspace disease right greater than left, edema versus pneumonia Assessment & Plan - Diagnosis (1) Sepsis Is this a current diagnosis for this admission?: Yes Plan: Patient has leukocytosis tachypnea and tachycardia hypoglycemia and leukocytosis. He has also bilateral pneumonia. Blood cultures taken. Sputum culture also pending. Patient has been started on vancomycin and cefepime. (2) COPD exacerbation Is this a current diagnosis for this admission?: Yes Plan: Patient has been started on bronchodilator and supplemental oxygen. (3) Diabetes mellitus type 2 in obese Is this a current diagnosis for this admission?: Yes Plan: See patient before coming to ER he has an episode of hypoglycemia at this point we will hold his home medications and put him on sliding scale and I started him also D5 with normal saline at a rate of 75 mm/h. (4) CAD (coronary artery disease) Qualifiers: Coronary Disease-Associated Artery/Lesion type: [place] artery Is this a current diagnosis for this admission?: Yes Plan: Patient does not have chest pain or EKG changes but he has mildly positive troponin so were going to trend his cardiac enzymes. (5) Atrial fibrillation Qualifiers: Atrial fibrillation type: chronic Qualified Code(s): I48.2 - Chronic atrial fibrillation Is this a current diagnosis for this admission?: Yes Plan: Rate controlled. If he is on anticoagulation will resume it. (6) Hypertension Qualifiers: Hypertension type: essential hypertension Qualified Code(s): I10 - Essential (primary) hypertension Is this a current diagnosis for this admission?: Yes Plan: Continue his home medication (7) Hyperlipidemia Qualifiers: Hyperlipidemia type: unspecified Qualified Code(s): E78.5 - Hyperlipidemia , unspecified Is this a current diagnosis for this admission?: Yes Plan: Continue his home medication.
[2017-11-30] MEDS ORDERED: FUROSEMIDE INJ/PF 40 MG/4 ML SDV IV ONE (18:30)
--- NOTE | 2017-11-30 19:31 | RADIOLOGY REPORT (SQ) ---
EXAM DESCRIPTION: CT CHEST WITH COMPLETED DATE/TIME: 11/30/2017 7:16 pm REASON FOR STUDY: sob, pneumonia vs chf COMPARISON: None. TECHNIQUE: CT scan of the chest performed using helical scanning technique with dynamic intravenous contrast injection. Images reviewed with lung, soft tissue and bone windows. Reconstructed coronal and sagittal MPR images reviewed. All images stored on PACS. All CT scanners at this facility use dose modulation, iterative reconstruction, and/or weight based d osing when appropriate to reduce radiation dose to as low as reasonably achievable (ALARA). [facility]: Dose Right [facility]: CareDose [facility]: Dose Right [facility]: Teradose 4D [facility]: [place] CONTRAST TYPE AND DOSE: contrast/concentration: Isovue 370.00 mg/ml; Total Contrast Delivered: 80.0 ml; Total Saline Delivered: 55.0 ml RENAL FUNCTION: GFR > 60. RADIATION DOSE: CT Rad equipment meets quality standard of care and radiation dose reduction techniq ues were employed. CTDIvol: 21.1 mGy. DLP: 932 mGy-cm. . LIMITATIONS: None. FINDINGS: LUNGS AND PLEURA: Patchy consolidation is present all lobes, greatest in the right upper a nd right lower lobes. No pneumothorax. Trace right pleural effusion. HILAR AND MEDIASTINAL STRUCTURES: Multiple enlarged mediastinal nodes. HEART AND VASCULAR STRUCTURES: No aneurysm or dissection. No central pulmonary emboli. No pericardi al effusion. HARDWARE: CABG. UPPER ABDOMEN: Multiple renal cysts. Limited exam. THYROID AND OTHER SOFT TISSUES: No masses. No adenopathy. BONES: No acute finding. OTHER: No other significant finding. IMPRESSION: Patchy consolidation is present all lobes, greatest in the right upper and right lower l obes. Multiple enlarged mediastinal nodes. TECHNICAL DOCUMENTATION: JOB ID: [id number] [place]-72 Quality ID # [id number]: Final reports with documentation of one or more dose reduction techniques (e.g., Au tomated exposure control, adjustment of the mA and/or kV according to patient size, use of iterative reconstruction technique) 2010 [employer]- All Rights Reserved Reading location - IP/workstation name: [employer]
--- NOTE | 2017-11-30 19:34 | EKG REPORT ---
SEVERITY:- ABNORMAL ECG - ATRIAL FIBRILLATION NONSPECIFIC T ABNORMALITIES, DIFFUSE LEADS : Confirmed by: Jonathan Emery MD 30-Nov-2017 19:33:00
[2017-11-30] MEDS: IPRATROPIUM/ALBUTEROL 0.5-2.5 MG/3 ML AMPUL NEB SCH (20:53)
[2017-11-30] MEDS: VANCOMYCIN HCL 1,250 MG in DEXTROSE 5%-WATER 250 ML IV SCH (21:29)
[2017-11-30] MEDS: DEXTROSE 5%-NORMAL SALINE 1,000 ML IV PRN (21:31)
[2017-11-30] MEDS: POTASSI CL 20 MEQ/50 ML RIDER 20 MEQ/50 ML RTUPB IV SCH (23:28)
[2017-12-01] MEDS: IPRATROPIUM/ALBUTEROL 0.5-2.5 MG/3 ML AMPUL NEB SCH ×6 (00:12→20:24)
[2017-12-01] MEDS: POTASSI CL 20 MEQ/50 ML RIDER 20 MEQ/50 ML RTUPB IV SCH (01:06)
[2017-12-01] MEDS ORDERED: LANSOPRAZOLE 30 MG TAB.RAP.DR PO SCH (06:00)
[2017-12-01] MEDS: CEFEPIME 2 GM/D5W RTU 2 GM/50 ML RTUPB IV SCH ×2 (06:46→17:13)
[2017-12-01 08:37] LABS: ABSOLUTE RETICS # 0.218 10^6/uL (0.028-0.122); HEMATOCRIT 26.8 % (37.9-51.0); HEMOGLOBIN 8.9 g/dL (13.5-17.0); MEAN CORPUSCULAR HEMOGLOBIN 27.7 pg (27.0-33.4); MEAN CORPUSCULAR HGB CONC 33.3 g/dL (32.0-36.0); MEAN CORPUSCULAR VOLUME 83 fl (80-97); PLATELET COUNT 332 10^3/uL (150-450); RED BLOOD COUNT 3.23 10^6/uL (4.35-5.55); RED CELL DISTRIBUTION WIDTH 15.8 % (11.5-14.0); RETICULOCYTE COUNT (AUTO) 6.74 % (0.66-2.85); WHITE BLOOD COUNT 17.6 10^3/uL (4.0-10.5)
[2017-12-01 08:41] LABS: ANION GAP 14 (5-19); BLOOD UREA NITROGEN 13 mg/dL (7-20); CARBON DIOXIDE 26 mmol/L (22-30); CHLORIDE 97 mmol/L (98-107); GLUCOSE 88 mg/dL (75-110); POTASSIUM 3.2 mmol/L (3.6-5.0); SODIUM 136.5 mmol/L (137-145)
[2017-12-01 09:14] LABS: ABSOLUTE LYMPHOCYTES# (MANUAL) 1.4 10^3/uL (0.5-4.7); BASOPHILS % (MANUAL) 0 % (0-2); EOSINOPHILS % (MANUAL) 1 % (0-6); LYMPHOCYTES % (MANUAL) 8 % (13-45); MONOCYTES % (MANUAL) 0 % (3-13); SEGMENTED NEUTROPHILS % (MAN) 91 % (42-78); TOTAL CELLS COUNTED 100
[2017-12-01 09:15] LABS: ANISOCYTOSIS SLIGHT; PLATELET COMMENT ADEQUATE; POLYCHROMASIA 1+
--- NOTE | 2017-12-01 09:23 | PDOC PROGRESS REPORT ---
Subjective Progress Note for:: 12/01/17 Subjective:: This is 67 years old male patient admitted yesterday with chief complaint of shortness of breath, poor oral intake and hypoglycemia. His chest x-ray revealed bilateral infiltration and the CT scan reported as patchy consolidation bilaterally right greater than left and he has also enlarged hilar and mediastinal lymph nodes. The radiologist who read the CT scan did not mention the differential diagnosis or any recommendation with regard to the enlarged lymph nodes. This morning I seen patient sitting on recliner, awake alert oriented is not in pain but still is in mild distress. He eats well and tolerates well. No fever, nausea or vomiting. Reason For Visit: PNEUMONIA,SEPSIS,COPD EXACERBATION Physical Exam Vital Signs: Temp Pulse Resp BP Pulse Ox 99.2 F 85 18 112/55 L 97 12/01/17 07:42 12/01/17 08:44 12/01/17 08:44 12/01/17 07:42 12/01/17 08:44 Intake & Output 11/30/17 12/01/17 12/02/17 06:59 06:59 06:59 Intake Total 2716 Output Total 1500 Balance 1216 Weight 146.8 kg Results Laboratory Results: 12/01/17 08:05 12/01/17 08:05 WBC 17.6 H RBC 3.23 L Hgb 8.9 L Hct 26.8 L MCV 83 MCH 27.7 MCHC 33.3 RDW 15.8 H Plt Count 332 Seg Neutrophils % Not Reportable Lymphocytes % Not Reportable Monocytes % Not Reportable Eosinophils % Not Reportable Basophils % Not Reportable Absolute Neutrophils Not Reportable Absolute Lymphocytes Not Reportable Absolute Monocytes Not Reportable Absolute Eosinophils Not Reportable Absolute Basophils Not Reportable Retic Count (auto) 6.74 H Absolute Retic 0.218 H Impressions: Chest X-Ray 11/30/17 15:24 IMPRESSION: Patchy bilateral airspace disease right greater than left, edema versus pneumonia Chest CT 11/30/17 17:16 IMPRESSION: Patchy consolidation is present all lobes, greatest in the right upper and right lower lobes. Multiple enlarged mediastinal nodes. Assessment & Plan - Diagnosis (1) Sepsis Is this a current diagnosis for this admission?: Yes Plan: Stable. Continue current regimen (2) COPD exacerbation Is this a current diagnosis for this admission?: Yes Plan: Improving. Patient still has some shortness of breath. We will continue the bronchodilator and supplemental oxygen. (3) Diabetes mellitus type 2 in obese Is this a current diagnosis for this admission?: Yes Plan: See patient before coming to ER he has an episode of hypoglycemia at this point we will hold his home medications and put him on sliding scale and I started him also D5 with normal saline at a rate of 75 mm/h. (4) CAD (coronary artery disease) Qualifiers: Coronary Disease-Associated Artery/Lesion type: [place] artery Is this a current diagnosis for this admission?: Yes Plan: Patient does not have chest pain or EKG changes but he has mildly positive troponin so were going to trend his cardiac enzymes. (5) Atrial fibrillation Qualifiers: Atrial fibrillation type: chronic Qualified Code(s): I48.2 - Chronic atrial fibrillation Is this a current diagnosis for this admission?: Yes Plan: Rate controlled. If he is on anticoagulation will resume it. (6) Hypertension Qualifiers: Hypertension type: essential hypertension Qualified Code(s): I10 - Essential (primary) hypertension Is this a current diagnosis for this admission?: Yes Plan: Continue his home medication (7) Hyperlipidemia Qualifiers: Hyperlipidemia type: unspecified Qualified Code(s): E78.5 - Hyperlipidemia , unspecified Is this a current diagnosis for this admission?: Yes Plan: Continue his home medication.
[2017-12-01] MEDS ORDERED: ENOXAPARIN SODIUM INJ 40 MG/0.4 ML DISP.SYRIN SUBCUT SCH (10:00)
[2017-12-01] MEDS ORDERED: ACETAMINOPHEN PO SCH (10:00)
[2017-12-01] MEDS ORDERED: [UNRECOGNIZED DRUG - OTHER] PO SCH (10:00)
[2017-12-01] MEDS ORDERED: PHENYLEPHRINE PO SCH (10:00)
[2017-12-01] MEDS ORDERED: APIXABAN 5 MG TABLET PO SCH (10:00)
[2017-12-01] MEDS ORDERED: ASPIRIN 325 MG TABLET PO SCH (10:00)
[2017-12-01] MEDS ORDERED: GUAIFENESIN PO SCH (10:00)
[2017-12-01] MEDS: VANCOMYCIN HCL 1,250 MG in DEXTROSE 5%-WATER 250 ML IV SCH ×2 (10:46→21:32)
[2017-12-01] MEDS: LOSARTAN POTASSIUM 50 MG TABLET PO SCH (10:46)
[2017-12-01] MEDS: METOPROLOL TARTRATE 25 MG TABLET PO SCH ×2 (10:46→21:32)
[2017-12-01] MEDS: BUMETANIDE 1 MG TABLET PO SCH (13:11)
[2017-12-01] MEDS: INSULIN LISPRO 100 UNIT/ML 3 ML VIAL SUBCUT PRN ×3 (13:11→21:32)
--- NOTE | 2017-12-01 14:07 | PDOC CONSULTATION ---
Consultation Consult Date: 12/01/17 Attending physician:: KAMI BELL Consult reason:: Anemia, mediastinal adenopathy History of Present Illness Admission Date/PCP: 11/30/17 18:06 CHELSEA GIRON MD Patient complains of: Fatigue, shortness of breath History of Present Illness: MALCOM KENNEDY JR is a 67 year old male with multiple medical problems including CAD, CVA, COPD presents with a 10 day history of shortness of breath, cough, sputum production. He was treated with Levaquin and completed 9/10 days. However his family at bedside did not feel like he was actually getting better. Over the 3-4 days prior to admission he was having frequent diarrhea with black stool. He became progressively weaker and short of breath and ultimately became confused and was brought in. Here he was found to be hypoxic, CT of the chest was done which showed bilateral opacities as well as mediastinal adenopathy. Upon admission his hemoglobin was in the 7 range as well. Iron studies were drawn which showed a ferritin in the 60 range indicating iron deficiency. Of note, about 6 years ago he presented here to the ED with shock, respiratory compromise, ultimately was transferred to [place], and was ventilated for a long period of time. At that time it was suspected that he had a GI bleed but he could not have endoscopies because of his tenuous respiratory status. Ultimately he was discharged to rehab and then later in [place] did have scopes done, this would have been in 2012, and apparently that indicated something in the stomach that required cauterization. My guess would be this was probably an AVM that was cauterized. Apparently the colonoscopy was clear. Past Medical History Cardiac Medical History: Reports: Myocardial Infarction - 06/08, Hyperlipidema, Hypertension - MEDICATED Pulmonary Medical History: Denies: Asthma Neurological Medical History: Reports: Seizures - DX A CHILD/off meds x 1 year-NO SEIZURES IN 25 YRS Endocrine Medical History: Reports: Diabetes Mellitus Type 2 GI Medical History: Reports: Gastroesophageal Reflux Disease, Hiatal Hernia Denies: Hepatitis Psychiatric Medical History: Denies: Depression Hematology: Reports: Anemia - 2011 Denies: Sickle Cell Disease Past Surgical History Past Surgical History: Reports: Other - Bioprosthetic aortic valve replacement Denies: Pacemaker Social History Information Source: Patient Smoking Status: Former Smoker Number of Years Smokin Frequency of Alcohol Use: None Hx Recreational Drug Use: No Drugs: None Hx Prescription Drug Abuse: No - Advance Directive Resuscitation Status: Full Code Family History Family History: Reviewed & Not Pertinent Parental Family History Reviewed: Yes Children Family History Reviewed: Yes Sibling(s) Family History Reviewed.: Yes Medication/Allergy Home Medications: Albuterol Sulfate [Proair HFA Inhalation Aerosol 8.5 gm MDI] 1 puff IH Q4HP PRN 11/30/17 Apixaban [Eliquis 5 mg Tablet] 5 mg PO Q12 11/30/17 Aspirin [Aspirin 325 mg Tablet] 325 mg PO DAILY 11/30/17 Bumetanide [Bumex 1 mg Tablet] 0.5 mg PO NOON 11/30/17 Bumetanide [Bumex 1 mg Tablet] 1 mg PO QAM 11/30/17 Glimepiride [Amaryl 4 mg Tablet] 4 mg PO BID 11/30/17 Guaifen/Phenyleph/Acetaminophn [Mucinex Sinus-Max Severe Cplt] 1 tab PO BID 11/12 Levofloxacin [Levaquin 750 mg Tablet] 750 mg PO DAILY 11/30/17 Levothyroxine Sodium [Synthroid] 100 mcg PO Q6AM 11/30/17 Losartan Potassium [Cozaar 50 mg Tablet] 50 mg PO DAILY 11/30/17 Metformin HCl [Glucophage 500 mg Tablet] 750 mg PO BID 11/30/17 Metoprolol Tartrate [Lopressor 25 mg Tablet] 37.5 mg PO BID 11/30/17 Rosuvastatin Calcium [Crestor] 40 mg PO QPM 11/30/17 Allergies/Adverse Reactions: lisinopril Adverse Reaction (Intermediate, Verified 05/10/17 10:33) COUGH, MUCOUS Review of Systems Constitutional: ABSENT: chills, fever(s), headache(s), weight gain, weight loss Eyes: ABSENT: visual disturbances Ears: ABSENT: hearing changes Cardiovascular: ABSENT: chest pain, dyspnea on exertion, edema, orthropnea, palpitations Respiratory: ABSENT: cough, hemoptysis Gastrointestinal: ABSENT: abdominal pain, constipation, diarrhea, hematemesis, hematochezia, nausea, vomiting Genitourinary: ABSENT: dysuria, hematuria Musculoskeletal: ABSENT: joint swelling Integumentary: ABSENT: rash, wounds Neurological: ABSENT: abnormal gait, abnormal speech, confusion, dizziness, focal weakness, syncope Psychiatric: ABSENT: anxiety, depression, homidical ideation, suicidal ideation Endocrine: ABSENT: cold intolerance, heat intolerance, polydipsia, polyuria Hematologic/Lymphatic: ABSENT: easy bleeding, easy bruising Physical Exam Vital Signs: Temp Pulse Resp BP Pulse Ox 98.4 F 77 20 107/58 L 100 12/01/17 11:38 12/01/17 11:38 12/01/17 11:38 12/01/17 11:38 12/01/17 11:38 Intake & Output 11/30/17 12/01/17 12/02/17 06:59 06:59 06:59 Intake Total 2716 400 Output Total 1500 Balance 1216 400 Weight 146.8 kg General appearance: PRESENT: no acute distress, well-developed, well-nourished Head exam: PRESENT: atraumatic, normocephalic Eye exam: PRESENT: conjunctiva pink, EOMI, PERRLA. ABSENT: scleral icterus Ear exam: PRESENT: normal external ear exam Mouth exam: PRESENT: moist, tongue midline Neck exam: ABSENT: carotid bruit, JVD, lymphadenopathy, thyromegaly Respiratory exam: PRESENT: clear to auscultation stephanie. ABSENT: rales, rhonchi, wheezes Cardiovascular exam: PRESENT: RRR. ABSENT: diastolic murmur, rubs, systolic murmur Pulses: PRESENT: normal dorsalis pedis pul Vascular exam: PRESENT: normal capillary refill GI/Abdominal exam: PRESENT: normal bowel sounds, soft. ABSENT: distended, guarding, mass, organolmegaly, rebound, tenderness Rectal exam: PRESENT: deferred Extremities exam: PRESENT: full ROM. ABSENT: calf tenderness, clubbing, pedal edema Neurological exam: PRESENT: alert, awake, oriented to person, oriented to place , oriented to time, oriented to situation, CN II-XII grossly intact. ABSENT: motor sensory deficit Psychiatric exam: PRESENT: appropriate affect, normal mood. ABSENT: homicidal ideation, suicidal ideation Skin exam: PRESENT: dry, intact, warm. ABSENT: cyanosis, rash Results Laboratory Results: 12/01/17 08:05 12/01/17 08:05 12/01/17 12/01/17 08:05 08:05 WBC 17.6 H RBC 3.23 L Hgb 8.9 L Hct 26.8 L MCV 83 MCH 27.7 MCHC 33.3 RDW 15.8 H Plt Count 332 Seg Neutrophils % Not Reportable Lymphocytes % Not Reportable Monocytes % Not Reportable Eosinophils % Not Reportable Basophils % Not Reportable Absolute Neutrophils Not Reportable Absolute Lymphocytes Not Reportable Absolute Monocytes Not Reportable Absolute Eosinophils Not Reportable Absolute Basophils Not Reportable Retic Count (auto) 6.74 H Absolute Retic 0.218 H Sodium 136.5 L Potassium 3.2 L Chloride 97 L Carbon Dioxide 26 Anion Gap 14 BUN 13 Creatinine 1.19 Est GFR ( Amer) > 60 Est GFR (Non-Af Amer) > 60 Glucose 88 Calcium 8.0 L Iron 82.0 TIBC 379 % Saturation 22 Ferritin 69.20 Vitamin B12 358.0 Folate 14.70 Impressions: Chest X-Ray 11/30/17 15:24 IMPRESSION: Patchy bilateral airspace disease right greater than left, edema versus pneumonia Chest CT 11/30/17 17:16 IMPRESSION: Patchy consolidation is present all lobes, greatest in the right upper and right lower lobes. Multiple enlarged mediastinal nodes. Status: Image reviewed by me Assessment & Plan - Diagnosis (1) Iron deficiency anemia due to chronic blood loss Is this a current diagnosis for this admission?: Yes Plan: Chronic blood loss anemia probably from recurrent AVMs. We will need to monitor him closer as an outpatient. I will give him IV iron. (2) Mediastinal lymphadenopathy Is this a current diagnosis for this admission?: Yes Plan: Mediastinal adenopathy, probably reactive from the lung process which probably is some sort of atypical pneumonia. This should improve it as an outpatient, we would need to follow-up with a repeat CT in 6-8 weeks from this admission. If he has persistent mediastinal adenopathy at that time we would recommend evaluation by endobronchial ultrasound and biopsy. But at this point it is most likely reactive. - Time Time Spent: Greater than 70 Minutes - Inpatient Certification Based on my medical assessment, after consideration of the patient's comorbidities, presenting symptoms, or acuity I expect that the services needed warrant INPATIENT care.: Yes I certify that my determination is in accordance with my understanding of Medicare's requirements for reasonable and necessary INPATIENT services [42 CFR 412.3e].: Yes Medical Necessity: Need For Continuous Telemetry Monitoring, Need for IV Antibiotics, Risk of Complication if Not Cared For in Hospital
[2017-12-01] MEDS ORDERED: FERUMOXYTOL (NON-ESRD) 510 MG/NS 100 ML IV ONE ×2 (15:30)
[2017-12-01] MEDS: DEXTROSE 5%-NORMAL SALINE 1,000 ML IV PRN (17:14)
[2017-12-01] MEDS ORDERED: (PENDING PHARMACY ID) (Rosuvastatin Calcium [Crestor] 40 MG) PO SCH (18:00)
[2017-12-01] MEDS: ATORVASTATIN CALCIUM 80 MG TABLET PO SCH (21:32)
[2017-12-01] MEDS: PANTOPRAZOLE SODIUM 40 MG VIAL IV SCH (21:32)
[2017-12-02] MEDS: IPRATROPIUM/ALBUTEROL 0.5-2.5 MG/3 ML AMPUL NEB SCH ×6 (00:30→20:33)
[2017-12-02] MEDS: LEVOTHYROXINE SODIUM 0.1 MG TABLET PO SCH (05:58)
[2017-12-02] MEDS: CEFEPIME 2 GM/D5W RTU 2 GM/50 ML RTUPB IV SCH ×2 (05:58→17:31)
[2017-12-02 06:10] LABS: ABSOLUTE BASOPHILS # (AUTO) 0.1 10^3/uL (0.0-0.2); ABSOLUTE EOSINOPHILS # (AUTO) 0.1 10^3/uL (0.0-0.6); ABSOLUTE MONOCYTES (AUTO) 1.3 10^3/uL (0.1-1.4); BASOPHILS % (AUTO) 0.4 % (0-2); EOSINOPHILS % (AUTO) 0.8 % (0-6); HEMATOCRIT 23.9 % (37.9-51.0); HEMOGLOBIN 8.2 g/dL (13.5-17.0); MEAN CORPUSCULAR HEMOGLOBIN 28.1 pg (27.0-33.4); MEAN CORPUSCULAR HGB CONC 34.5 g/dL (32.0-36.0); MEAN CORPUSCULAR VOLUME 81 fl (80-97); MONOCYTES % (AUTO) 7.7 % (3-13); PLATELET COUNT 313 10^3/uL (150-450); RED BLOOD COUNT 2.94 10^6/uL (4.35-5.55); RED CELL DISTRIBUTION WIDTH 16.2 % (11.5-14.0); SEGMENTED NEUTROPHILS % (AUTO) 85.1 % (42-78); TOTAL CELLS COUNTED % (AUTO) 100 %; WHITE BLOOD COUNT 16.4 10^3/uL (4.0-10.5)
[2017-12-02 06:37] LABS: ANION GAP 13 (5-19); BLOOD UREA NITROGEN 15 mg/dL (7-20); CARBON DIOXIDE 22 mmol/L (22-30); CHLORIDE 96 mmol/L (98-107); GLUCOSE 175 mg/dL (75-110); POTASSIUM 3.5 mmol/L (3.6-5.0); SODIUM 130.7 mmol/L (137-145)
[2017-12-02] MEDS: BUMETANIDE 1 MG TABLET PO SCH ×2 (08:17→12:18)
[2017-12-02] MEDS: INSULIN LISPRO 100 UNIT/ML 3 ML VIAL SUBCUT PRN ×4 (08:17→22:44)
[2017-12-02] MEDS: LOSARTAN POTASSIUM 50 MG TABLET PO SCH (09:38)
[2017-12-02] MEDS: METOPROLOL TARTRATE 25 MG TABLET PO SCH ×2 (09:38→21:29)
--- NOTE | 2017-12-02 10:12 | PDOC PROGRESS REPORT ---
Subjective Progress Note for:: 12/02/17 Subjective:: Pt stable this am, given IV iron yesterday Reason For Visit: PNEUMONIA,SEPSIS,COPD EXACERBATION Physical Exam Vital Signs: Temp Pulse Resp BP Pulse Ox 98.8 F 86 16 128/55 H 97 12/02/17 07:41 12/02/17 08:48 12/02/17 09:45 12/02/17 07:41 12/02/17 09:45 Intake & Output 12/01/17 12/02/17 12/03/17 06:59 06:59 06:59 Intake Total 2716 2590 Output Total 1500 825 Balance 1216 1765 Weight 146.8 kg 146.8 kg General appearance: PRESENT: no acute distress, well-developed, well-nourished Head exam: PRESENT: atraumatic, normocephalic Eye exam: PRESENT: conjunctiva pink, EOMI, PERRLA. ABSENT: scleral icterus Ear exam: PRESENT: normal external ear exam Mouth exam: PRESENT: moist, tongue midline Neck exam: ABSENT: carotid bruit, JVD, lymphadenopathy, thyromegaly Respiratory exam: PRESENT: clear to auscultation stephanie. ABSENT: rales, rhonchi, wheezes Cardiovascular exam: PRESENT: RRR. ABSENT: diastolic murmur, rubs, systolic murmur Pulses: PRESENT: normal dorsalis pedis pul Vascular exam: PRESENT: normal capillary refill GI/Abdominal exam: PRESENT: normal bowel sounds, soft. ABSENT: distended, guarding, mass, organolmegaly, rebound, tenderness Rectal exam: PRESENT: deferred Extremities exam: PRESENT: full ROM. ABSENT: calf tenderness, clubbing, pedal edema Neurological exam: PRESENT: alert, awake, oriented to person, oriented to place , oriented to time, oriented to situation, CN II-XII grossly intact. ABSENT: motor sensory deficit Psychiatric exam: PRESENT: appropriate affect, normal mood. ABSENT: homicidal ideation, suicidal ideation Skin exam: PRESENT: dry, intact, warm. ABSENT: cyanosis, rash Results Laboratory Results: 12/02/17 05:23 12/02/17 05:23 12/02/17 12/02/17 05:23 05:23 WBC 16.4 H RBC 2.94 L Hgb 8.2 L Hct 23.9 L MCV 81 MCH 28.1 MCHC 34.5 RDW 16.2 H Plt Count 313 Seg Neutrophils % 85.1 H Lymphocytes % 6.0 L Monocytes % 7.7 Eosinophils % 0.8 Basophils % 0.4 Absolute Neutrophils 14.0 H Absolute Lymphocytes 1.0 Absolute Monocytes 1.3 Absolute Eosinophils 0.1 Absolute Basophils 0.1 Sodium 130.7 L Potassium 3.5 L Chloride 96 L Carbon Dioxide 22 Anion Gap 13 BUN 15 Creatinine 1.10 Est GFR ( Amer) > 60 Est GFR (Non-Af Amer) > 60 Glucose 175 H Calcium 8.0 L Impressions: Chest CT 11/30/17 17:16 IMPRESSION: Patchy consolidation is present all lobes, greatest in the right upper and right lower lobes. Multiple enlarged mediastinal nodes. Assessment & Plan - Diagnosis (1) Iron deficiency anemia due to chronic blood loss Is this a current diagnosis for this admission?: Yes Plan: Likely 2nd to AVM, no stool occult yet noted in chart, another dose IV iron scheduled in 2 days if pt still admitted. will need f/u in our office as outpt (2) Mediastinal lymphadenopathy Is this a current diagnosis for this admission?: Yes Plan: Likely reactive, should normalize over time, will need repeat CT chest to eval in 6-8 wks and we can follow him up
[2017-12-02 10:31] LABS: VANCOMYCIN,TROUGH 15.3 ug/mL (5.0-20.0)
[2017-12-02] MEDS: VANCOMYCIN HCL 1,250 MG in DEXTROSE 5%-WATER 250 ML IV SCH ×2 (10:40→21:29)
[2017-12-02] MEDS: PANTOPRAZOLE SODIUM 40 MG VIAL IV SCH ×2 (10:40→21:29)
--- NOTE | 2017-12-02 11:15 | RADIOLOGY REPORT (SQ) ---
EXAM DESCRIPTION: CHEST SINGLE VIEW COMPLETED DATE/TIME: 12/02/2017 9:36 am REASON FOR STUDY: Pneumonia COMPARISON: CT chest 11/30/2017 Chest films 11/30/2017, 11/22/2017 EXAM PARAMETERS: NUMBER OF VIEWS: One view. TECHNIQUE: Single frontal radiographic view of the chest acquired. RADIATION DOSE: NA LIMITATIONS: None. FINDINGS: LUNGS AND PLEURA: Unchanged bilateral patchy diffuse airspace disease from multifocal pneu monia. No pleural effusion. No pneumothorax. MEDIASTINUM AND HILAR STRUCTURES: No masses. Contour normal. HEART AND VASCULAR STRUCTURES: Stable cardiomegaly, old CABG BONES: No acute findings. HARDWARE: None in the chest. OTHER: No other significant finding. IMPRESSION: No change in diffuse patchy bilateral pneumonia. TECHNICAL DOCUMENTATION: JOB ID: [id number] [employer]- All Rights Reserved Reading location - IP/workstation name: [email or web address]
--- NOTE | 2017-12-02 12:56 | PDOC PROGRESS REPORT ---
Subjective Progress Note for:: 12/02/17 Subjective:: Patient has been doing relatively well. He is awake alert oriented. He is in mild distress. His white cell count is trending down from 29.7-16.4. Yesterday patient was evaluated but by Dr. San for bilateral enlarged hilar lymph nodes and he recommended follow-up with CT scan since he considers this might to be reactive lymphadenopathy. Reason For Visit: PNEUMONIA,SEPSIS,COPD EXACERBATION Physical Exam Vital Signs: Temp Pulse Resp BP Pulse Ox 98.3 F 78 14 104/51 L 99 12/02/17 11:35 12/02/17 11:50 12/02/17 11:50 12/02/17 11:35 12/02/17 11:50 Intake & Output 12/01/17 12/02/17 12/03/17 06:59 06:59 06:59 Intake Total 2716 2590 Output Total 1500 825 Balance 1216 1765 Weight 146.8 kg 146.8 kg General appearance: PRESENT: no acute distress Head exam: PRESENT: atraumatic Mouth exam: PRESENT: moist Neck exam: ABSENT: carotid bruit, JVD, lymphadenopathy, thyromegaly Respiratory exam: PRESENT: crackles - Bilateral, rhonchi Cardiovascular exam: PRESENT: RRR. ABSENT: diastolic murmur, rubs, systolic murmur GI/Abdominal exam: PRESENT: normal bowel sounds, soft. ABSENT: distended, guarding, mass, organolmegaly, rebound, tenderness Neurological exam: PRESENT: alert, awake, oriented to time, oriented to situation Psychiatric exam: PRESENT: normal mood Results Laboratory Results: 12/02/17 05:23 12/02/17 05:23 12/02/17 12/02/17 05:23 05:23 WBC 16.4 H RBC 2.94 L Hgb 8.2 L Hct 23.9 L MCV 81 MCH 28.1 MCHC 34.5 RDW 16.2 H Plt Count 313 Seg Neutrophils % 85.1 H Lymphocytes % 6.0 L Monocytes % 7.7 Eosinophils % 0.8 Basophils % 0.4 Absolute Neutrophils 14.0 H Absolute Lymphocytes 1.0 Absolute Monocytes 1.3 Absolute Eosinophils 0.1 Absolute Basophils 0.1 Sodium 130.7 L Potassium 3.5 L Chloride 96 L Carbon Dioxide 22 Anion Gap 13 BUN 15 Creatinine 1.10 Est GFR ( Amer) > 60 Est GFR (Non-Af Amer) > 60 Glucose 175 H Calcium 8.0 L 11/30/17 22:47 Sputum Gram Stain - Final 11/30/17 22:47 Sputum Sputum Culture - Final REDUCED NORMAL SALONI Impressions: Chest CT 11/30/17 17:16 IMPRESSION: Patchy consolidation is present all lobes, greatest in the right upper and right lower lobes. Multiple enlarged mediastinal nodes. Chest X-Ray 12/02/17 00:00 IMPRESSION: No change in diffuse patchy bilateral pneumonia. Assessment & Plan - Diagnosis (1) Sepsis Is this a current diagnosis for this admission?: Yes Plan: So far blood culture is negative. I will continue his cefepime and Comycin for the next 48 hours. (2) COPD exacerbation Is this a current diagnosis for this admission?: Yes Plan: Improving. Patient still has some shortness of breath. We will continue the bronchodilator and supplemental oxygen. (3) Diabetes mellitus type 2 in obese Is this a current diagnosis for this admission?: Yes Plan: See patient before coming to ER he has an episode of hypoglycemia at this point we will hold his home medications and put him on sliding scale and I started him also D5 with normal saline at a rate of 75 mm/h. (4) CAD (coronary artery disease) Qualifiers: Coronary Disease-Associated Artery/Lesion type: [place] artery Is this a current diagnosis for this admission?: Yes Plan: Patient does not have chest pain or EKG changes but he has mildly positive troponin so were going to trend his cardiac enzymes. (5) Atrial fibrillation Qualifiers: Atrial fibrillation type: chronic Qualified Code(s): I48.2 - Chronic atrial fibrillation Is this a current diagnosis for this admission?: Yes Plan: I will hold his Eliquis since he has patient dropping hematocrit and history of tarry stools. (6) Hypertension Qualifiers: Hypertension type: essential hypertension Qualified Code(s): I10 - Essential (primary) hypertension Is this a current diagnosis for this admission?: Yes Plan: Continue his home medication (7) Hyperlipidemia Qualifiers: Hyperlipidemia type: unspecified Qualified Code(s): E78.5 - Hyperlipidemia , unspecified Is this a current diagnosis for this admission?: Yes Plan: Continue his home medication.
[2017-12-02] MEDS ORDERED: MAGNESIUM CITRATE 296 ML BOTTLE PO ONE (14:00)
[2017-12-02] MEDS: ATORVASTATIN CALCIUM 80 MG TABLET PO SCH (21:29)
[2017-12-03] MEDS: IPRATROPIUM/ALBUTEROL 0.5-2.5 MG/3 ML AMPUL NEB SCH ×6 (00:24→20:18)
[2017-12-03] MEDS: CEFEPIME 2 GM/D5W RTU 2 GM/50 ML RTUPB IV SCH ×2 (05:27→17:12)
[2017-12-03] MEDS: LEVOTHYROXINE SODIUM 0.1 MG TABLET PO SCH (05:27)
[2017-12-03 06:18] LABS: ABSOLUTE BASOPHILS # (AUTO) 0.1 10^3/uL (0.0-0.2); ABSOLUTE EOSINOPHILS # (AUTO) 0.2 10^3/uL (0.0-0.6); ABSOLUTE LYMPHOCYTES (AUTO) 0.8 10^3/uL (0.5-4.7); ABSOLUTE MONOCYTES (AUTO) 1.2 10^3/uL (0.1-1.4); ABSOLUTE NEUT (AUTO) 12.8 10^3/uL (1.7-8.2); BASOPHILS % (AUTO) 0.6 % (0-2); EOSINOPHILS % (AUTO) 1.1 % (0-6); HEMATOCRIT 24.6 % (37.9-51.0); HEMOGLOBIN 8.2 g/dL (13.5-17.0); LYMPHOCYTES % (AUTO) 5.5 % (13-45); MEAN CORPUSCULAR HEMOGLOBIN 27.5 pg (27.0-33.4); MEAN CORPUSCULAR HGB CONC 33.4 g/dL (32.0-36.0); MEAN CORPUSCULAR VOLUME 82 fl (80-97); MONOCYTES % (AUTO) 8.3 % (3-13); PLATELET COUNT 360 10^3/uL (150-450); RED BLOOD COUNT 2.99 10^6/uL (4.35-5.55); RED CELL DISTRIBUTION WIDTH 16.2 % (11.5-14.0); SEGMENTED NEUTROPHILS % (AUTO) 84.5 % (42-78); TOTAL CELLS COUNTED % (AUTO) 100 %; WHITE BLOOD COUNT 15.1 10^3/uL (4.0-10.5)
[2017-12-03 06:44] LABS: ANION GAP 13 (5-19); BLOOD UREA NITROGEN 15 mg/dL (7-20); CARBON DIOXIDE 23 mmol/L (22-30); CHLORIDE 99 mmol/L (98-107); GLUCOSE 156 mg/dL (75-110); POTASSIUM 3.9 mmol/L (3.6-5.0); SODIUM 135.3 mmol/L (137-145)
[2017-12-03] MEDS: BUMETANIDE 1 MG TABLET PO SCH ×2 (08:13→12:00)
--- NOTE | 2017-12-03 08:40 | PDOC PROGRESS REPORT ---
Subjective Progress Note for:: 12/03/17 Subjective:: Saw that hemocult+, hb stable in 8 range, would consult GI Reason For Visit: PNEUMONIA,SEPSIS,COPD EXACERBATION Physical Exam Vital Signs: Temp Pulse Resp BP Pulse Ox 98.1 F 82 20 106/70 96 12/02/17 23:53 12/03/17 04:20 12/03/17 04:20 12/02/17 23:53 12/03/17 04:20 Intake & Output 12/02/17 12/03/17 12/04/17 06:59 06:59 06:59 Intake Total 2590 1960 Output Total 825 700 Balance 1765 1260 Weight 146.8 kg 147.1 kg General appearance: PRESENT: no acute distress, well-developed, well-nourished Head exam: PRESENT: atraumatic, normocephalic Eye exam: PRESENT: conjunctiva pink, EOMI, PERRLA. ABSENT: scleral icterus Ear exam: PRESENT: normal external ear exam Mouth exam: PRESENT: moist, tongue midline Neck exam: ABSENT: carotid bruit, JVD, lymphadenopathy, thyromegaly Respiratory exam: PRESENT: clear to auscultation stephanie. ABSENT: rales, rhonchi, wheezes Cardiovascular exam: PRESENT: RRR. ABSENT: diastolic murmur, rubs, systolic murmur Pulses: PRESENT: normal dorsalis pedis pul Vascular exam: PRESENT: normal capillary refill GI/Abdominal exam: PRESENT: normal bowel sounds, soft. ABSENT: distended, guarding, mass, organolmegaly, rebound, tenderness Rectal exam: PRESENT: deferred Extremities exam: PRESENT: full ROM. ABSENT: calf tenderness, clubbing, pedal edema Neurological exam: PRESENT: alert, awake, oriented to person, oriented to place , oriented to time, oriented to situation, CN II-XII grossly intact. ABSENT: motor sensory deficit Psychiatric exam: PRESENT: appropriate affect, normal mood. ABSENT: homicidal ideation, suicidal ideation Skin exam: PRESENT: dry, intact, warm. ABSENT: cyanosis, rash Results Laboratory Results: 12/03/17 05:34 12/03/17 05:34 12/02/17 12/03/17 12/03/17 23:05 05:34 05:34 WBC 15.1 H RBC 2.99 L Hgb 8.2 L Hct 24.6 L MCV 82 MCH 27.5 MCHC 33.4 RDW 16.2 H Plt Count 360 Seg Neutrophils % 84.5 H Lymphocytes % 5.5 L Monocytes % 8.3 Eosinophils % 1.1 Basophils % 0.6 Absolute Neutrophils 12.8 H Absolute Lymphocytes 0.8 Absolute Monocytes 1.2 Absolute Eosinophils 0.2 Absolute Basophils 0.1 Sodium 135.3 L Potassium 3.9 Chloride 99 Carbon Dioxide 23 Anion Gap 13 BUN 15 Creatinine 1.31 H Est GFR ( Amer) > 60 Est GFR (Non-Af Amer) 55 L Glucose 156 H Calcium 8.0 L Stool Occult Blood POSITIVE 11/30/17 22:47 Sputum Gram Stain - Final 11/30/17 22:47 Sputum Sputum Culture - Final REDUCED NORMAL SALONI Impressions: Chest CT 11/30/17 17:16 IMPRESSION: Patchy consolidation is present all lobes, greatest in the right upper and right lower lobes. Multiple enlarged mediastinal nodes. Chest X-Ray 12/02/17 00:00 IMPRESSION: No change in diffuse patchy bilateral pneumonia. Assessment & Plan - Diagnosis (1) Iron deficiency anemia due to chronic blood loss Is this a current diagnosis for this admission?: Yes Plan: 2nd to GI blood loss, needs GI consult (2) Mediastinal lymphadenopathy Is this a current diagnosis for this admission?: Yes Plan: reactive
[2017-12-03] MEDS: LOSARTAN POTASSIUM 50 MG TABLET PO SCH (09:39)
[2017-12-03] MEDS: METOPROLOL TARTRATE 25 MG TABLET PO SCH ×2 (09:40→21:55)
[2017-12-03] MEDS: VANCOMYCIN HCL 1,250 MG in DEXTROSE 5%-WATER 250 ML IV SCH ×2 (09:42→21:59)
[2017-12-03] MEDS: PANTOPRAZOLE SODIUM 40 MG VIAL IV SCH ×2 (09:43→21:56)
[2017-12-03] MEDS ORDERED: NORMAL SALINE 250 ML IV PRN ×2 (10:46)
--- NOTE | 2017-12-03 13:26 | PDOC PROGRESS REPORT ---
Subjective Progress Note for:: 12/03/17 Subjective:: MALCOM KENNEDY JR is a 67 year old male with multiple comorbidities including A. fib, HTN, HLD, type 2 diabetes mellitus, RIN, morbid obesity, coronary artery disease, history of stroke and seizure, COPD and status post bioprosthetic aortic valve replacement. Patient presents with shortness of breath, confusion and hypoglycemia. His blood work shows leukocytosis of 22, 000 at his chest x-ray and CTA of the chest revealed bilateral consolidation right greater than left. Patient has been started empirically on cefepime and vancomycin. Patient has been doing well his shortness of breath subsided his mental status at his baseline and today his white cell count is 15.1. Patient has also dropping his hemoglobin and hematocrit. His stool for occult blood is positive. Patient will be transfused 1 unit of packed RBC. Patient has history of severe GI bleeding which required transfer to [facility]. Dr. San ,hematology /oncology, is on board and has consulted layer out.. Reason For Visit: PNEUMONIA,SEPSIS,COPD EXACERBATION Physical Exam Vital Signs: Temp Pulse Resp BP Pulse Ox 98.3 F 64 16 123/50 L 100 12/03/17 11:56 12/03/17 12:10 12/03/17 12:10 12/03/17 11:56 12/03/17 11:56 Intake & Output 12/02/17 12/03/17 12/04/17 06:59 06:59 06:59 Intake Total 2590 1960 Output Total 825 700 Balance 1765 1260 Weight 146.8 kg 147.1 kg General appearance: PRESENT: no acute distress, well-developed, well-nourished Head exam: PRESENT: atraumatic, normocephalic Eye exam: PRESENT: conjunctiva pink, EOMI, PERRLA. ABSENT: scleral icterus Ear exam: PRESENT: normal external ear exam Mouth exam: PRESENT: moist, tongue midline Neck exam: ABSENT: carotid bruit, JVD, lymphadenopathy, thyromegaly Respiratory exam: PRESENT: clear to auscultation stephanie, wheezes. ABSENT: rales, rhonchi Cardiovascular exam: PRESENT: RRR. ABSENT: diastolic murmur, rubs, systolic murmur Pulses: PRESENT: normal dorsalis pedis pul Vascular exam: PRESENT: normal capillary refill GI/Abdominal exam: PRESENT: normal bowel sounds, soft. ABSENT: distended, guarding, mass, organolmegaly, rebound, tenderness Rectal exam: PRESENT: deferred Extremities exam: PRESENT: full ROM. ABSENT: calf tenderness, clubbing, pedal edema Neurological exam: PRESENT: alert, awake, oriented to person, oriented to place , oriented to time, oriented to situation, CN II-XII grossly intact. ABSENT: motor sensory deficit Psychiatric exam: PRESENT: appropriate affect, normal mood. ABSENT: homicidal ideation, suicidal ideation Skin exam: PRESENT: dry, intact, warm. ABSENT: cyanosis, rash Results Laboratory Results: 12/03/17 05:34 12/03/17 05:34 12/02/17 12/03/17 12/03/17 23:05 05:34 05:34 WBC 15.1 H RBC 2.99 L Hgb 8.2 L Hct 24.6 L MCV 82 MCH 27.5 MCHC 33.4 RDW 16.2 H Plt Count 360 Seg Neutrophils % 84.5 H Lymphocytes % 5.5 L Monocytes % 8.3 Eosinophils % 1.1 Basophils % 0.6 Absolute Neutrophils 12.8 H Absolute Lymphocytes 0.8 Absolute Monocytes 1.2 Absolute Eosinophils 0.2 Absolute Basophils 0.1 Sodium 135.3 L Potassium 3.9 Chloride 99 Carbon Dioxide 23 Anion Gap 13 BUN 15 Creatinine 1.31 H Est GFR ( Amer) > 60 Est GFR (Non-Af Amer) 55 L Glucose 156 H Calcium 8.0 L Stool Occult Blood POSITIVE 11/30/17 22:47 Sputum Gram Stain - Final 11/30/17 22:47 Sputum Sputum Culture - Final REDUCED NORMAL SALONI Impressions: Chest CT 11/30/17 17:16 IMPRESSION: Patchy consolidation is present all lobes, greatest in the right upper and right lower lobes. Multiple enlarged mediastinal nodes. Chest X-Ray 12/02/17 00:00 IMPRESSION: No change in diffuse patchy bilateral pneumonia. Assessment & Plan - Diagnosis (1) Sepsis Is this a current diagnosis for this admission?: Yes Plan: So far blood culture is negative. I will continue his cefepime and Comycin for the next 48 hours. (2) COPD exacerbation Is this a current diagnosis for this admission?: Yes Plan: Improving. Patient still has some shortness of breath. We will continue the bronchodilator and supplemental oxygen. (3) Diabetes mellitus type 2 in obese Is this a current diagnosis for this admission?: Yes Plan: See patient before coming to ER he has an episode of hypoglycemia at this point we will hold his home medications and put him on sliding scale and I started him also D5 with normal saline at a rate of 75 mm/h. (4) CAD (coronary artery disease) Qualifiers: Coronary Disease-Associated Artery/Lesion type: [place] artery Is this a current diagnosis for this admission?: Yes Plan: Patient does not have chest pain or EKG changes but he has mildly positive troponin so were going to trend his cardiac enzymes. (5) Atrial fibrillation Qualifiers: Atrial fibrillation type: chronic Qualified Code(s): I48.2 - Chronic atrial fibrillation Is this a current diagnosis for this admission?: Yes Plan: I will hold his Eliquis since he has patient dropping hematocrit and history of tarry stools. (6) Hypertension Qualifiers: Hypertension type: essential hypertension Qualified Code(s): I10 - Essential (primary) hypertension Is this a current diagnosis for this admission?: Yes Plan: Continue his home medication (7) Hyperlipidemia Qualifiers: Hyperlipidemia type: unspecified Qualified Code(s): E78.5 - Hyperlipidemia , unspecified Is this a current diagnosis for this admission?: Yes Plan: Continue his home medication.
[2017-12-03 18:43] LABS: ABSOLUTE BASOPHILS # (AUTO) 0.1 10^3/uL (0.0-0.2); ABSOLUTE EOSINOPHILS # (AUTO) 0.2 10^3/uL (0.0-0.6); ABSOLUTE LYMPHOCYTES (AUTO) 0.8 10^3/uL (0.5-4.7); ABSOLUTE MONOCYTES (AUTO) 1.2 10^3/uL (0.1-1.4); ABSOLUTE NEUT (AUTO) 11.2 10^3/uL (1.7-8.2); BASOPHILS % (AUTO) 0.5 % (0-2); EOSINOPHILS % (AUTO) 1.2 % (0-6); HEMATOCRIT 27.7 % (37.9-51.0); HEMOGLOBIN 9.4 g/dL (13.5-17.0); LYMPHOCYTES % (AUTO) 6.1 % (13-45); MEAN CORPUSCULAR HEMOGLOBIN 28.5 pg (27.0-33.4); MEAN CORPUSCULAR VOLUME 84 fl (80-97); MONOCYTES % (AUTO) 8.9 % (3-13); PLATELET COUNT 363 10^3/uL (150-450); RED CELL DISTRIBUTION WIDTH 16.4 % (11.5-14.0); SEGMENTED NEUTROPHILS % (AUTO) 83.3 % (42-78); TOTAL CELLS COUNTED % (AUTO) 100 %; WHITE BLOOD COUNT 13.4 10^3/uL (4.0-10.5)
--- NOTE | 2017-12-03 19:50 | PDOC CONSULTATION ---
Consultation Consult Date: 12/03/17 Attending physician:: SHAYE LEBRON Consult reason:: anemia , heme positive stols History of Present Illness Admission Date/PCP: 11/30/17 18:06 CHELSEA GIRON MD History of Present Illness: MALCOM KENNEDY JR is a 67 year old male patient presented with multiple medical problems admitted by the hospitalist service poor historian in general patient noted to have heme positive stools, patient does have anemia and gets IV iron there is a question of what sort of lesion he had in the past will need to get records, just because he had cauterization does not imply that he has an AVM, patient had lower GI work up as well hemodynamically stable, has COPD patient being treated for pneumonia on levaquin of note has a bio- prosthetic aortic valve he came in with SOB, his breathing pattern apepars to be more stable than what was described on admission patient had mediastinal lymphadnopathy which is felt to be reactive he is on a PPI at current time Patient is on Apixaban , which is an anticoagulant not able to checked with the usual parameters This has has not been stopped Past Medical History Cardiac Medical History: Reports: Myocardial Infarction - 06/08, Hyperlipidema, Hypertension - MEDICATED Pulmonary Medical History: Denies: Asthma Neurological Medical History: Reports: Seizures - DX A CHILD/off meds x 1 year-NO SEIZURES IN 25 YRS Endocrine Medical History: Reports: Diabetes Mellitus Type 2 GI Medical History: Reports: Gastroesophageal Reflux Disease, Hiatal Hernia Denies: Hepatitis Psychiatric Medical History: Denies: Depression Hematology: Reports: Anemia - 2011 Denies: Sickle Cell Disease Past Surgical History Past Surgical History: Reports: Other - Bioprosthetic aortic valve replacement Denies: Pacemaker Social History Smoking Status: Former Smoker Number of Years Smokin Frequency of Alcohol Use: None Hx Recreational Drug Use: No Drugs: None Hx Prescription Drug Abuse: No - Advance Directive Resuscitation Status: Full Code Family History Family History: Reviewed & Not Pertinent Parental Family History Reviewed: Yes Children Family History Reviewed: Unknown Sibling(s) Family History Reviewed.: Unknown Medication/Allergy Home Medications: Albuterol Sulfate [Proair HFA Inhalation Aerosol 8.5 gm MDI] 1 puff IH Q4HP PRN 11/30/17 Apixaban [Eliquis 5 mg Tablet] 5 mg PO Q12 11/30/17 Aspirin [Aspirin 325 mg Tablet] 325 mg PO DAILY 11/30/17 Bumetanide [Bumex 1 mg Tablet] 0.5 mg PO NOON 11/30/17 Bumetanide [Bumex 1 mg Tablet] 1 mg PO QAM 11/30/17 Glimepiride [Amaryl 4 mg Tablet] 4 mg PO BID 11/30/17 Guaifen/Phenyleph/Acetaminophn [Mucinex Sinus-Max Severe Cplt] 1 tab PO BID 11/12 Levofloxacin [Levaquin 750 mg Tablet] 750 mg PO DAILY 11/30/17 Levothyroxine Sodium [Synthroid] 100 mcg PO Q6AM 11/30/17 Losartan Potassium [Cozaar 50 mg Tablet] 50 mg PO DAILY 11/30/17 Metformin HCl [Glucophage 500 mg Tablet] 750 mg PO BID 11/30/17 Metoprolol Tartrate [Lopressor 25 mg Tablet] 37.5 mg PO BID 11/30/17 Rosuvastatin Calcium [Crestor] 40 mg PO QPM 11/30/17 Allergies/Adverse Reactions: lisinopril Adverse Reaction (Intermediate, Verified 05/10/17 10:33) COUGH, MUCOUS Review of Systems Constitutional: PRESENT: weakness. ABSENT: fever(s), headache(s), night sweats Eyes: ABSENT: visual disturbances Ears: ABSENT: hearing changes Nose, Mouth, and Throat: ABSENT: mouth pain Cardiovascular: PRESENT: orthropnea. ABSENT: edema, palpitations Respiratory: PRESENT: dyspnea. ABSENT: hemoptysis Gastrointestinal: ABSENT: melena, nausea, vomiting Genitourinary: ABSENT: dysuria, hematuria Integumentary: ABSENT: lesions, pruritus Neurological: ABSENT: syncope, tingling, tremor(s), vertigo Endocrine: PRESENT: polyphagia. ABSENT: polydipsia, polyuria Physical Exam Vital Signs: Temp Pulse Resp BP Pulse Ox 97.9 F 65 18 106/68 100 12/03/17 15:37 12/03/17 16:13 12/03/17 16:13 12/03/17 15:37 12/03/17 16:13 Intake & Output 12/02/17 12/03/17 12/04/17 06:59 06:59 06:59 Intake Total 2590 1960 1954 Output Total 184 158 0736 Balance 1765 1260 829 Weight 146.8 kg 147.1 kg General appearance: PRESENT: mild distress, well-developed, well-nourished Head exam: PRESENT: atraumatic, normocephalic Eye exam: PRESENT: EOMI, PERRLA. ABSENT: scleral icterus Mouth exam: PRESENT: moist, neck supple Throat exam: ABSENT: tonsillar exudate, tonsillogmegaly Neck exam: ABSENT: meningismus, tenderness, thyromegaly Respiratory exam: PRESENT: symmetrical, unlabored. ABSENT: tachypnea, wheezes Cardiovascular exam: PRESENT: irregular rhythm, +S2 GI/Abdominal exam: PRESENT: soft. ABSENT: rebound, rigid, tenderness Extremities exam: ABSENT: joint swelling Musculoskeletal exam: PRESENT: full ROM Neurological exam: PRESENT: oriented to time, oriented to situation, CN II-XII grossly intact Focused psych exam: ABSENT: restlessness Skin exam: PRESENT: normal color, pallor. ABSENT: mottled, petechiae, urticaria , vesicles Results Laboratory Results: 12/03/17 18:25 12/03/17 05:34 12/02/17 12/03/17 12/03/17 23:05 05:34 05:34 WBC 15.1 H RBC 2.99 L Hgb 8.2 L Hct 24.6 L MCV 82 MCH 27.5 MCHC 33.4 RDW 16.2 H Plt Count 360 Seg Neutrophils % 84.5 H Lymphocytes % 5.5 L Monocytes % 8.3 Eosinophils % 1.1 Basophils % 0.6 Absolute Neutrophils 12.8 H Absolute Lymphocytes 0.8 Absolute Monocytes 1.2 Absolute Eosinophils 0.2 Absolute Basophils 0.1 Sodium 135.3 L Potassium 3.9 Chloride 99 Carbon Dioxide 23 Anion Gap 13 BUN 15 Creatinine 1.31 H Est GFR ( Amer) > 60 Est GFR (Non-Af Amer) 55 L Glucose 156 H Calcium 8.0 L Stool Occult Blood POSITIVE 12/03/17 18:25 WBC 13.4 H RBC 3.30 L Hgb 9.4 L Hct 27.7 L MCV 84 MCH 28.5 MCHC 34.0 RDW 16.4 H Plt Count 363 Seg Neutrophils % 83.3 H Lymphocytes % 6.1 L Monocytes % 8.9 Eosinophils % 1.2 Basophils % 0.5 Absolute Neutrophils 11.2 H Absolute Lymphocytes 0.8 Absolute Monocytes 1.2 Absolute Eosinophils 0.2 Absolute Basophils 0.1 Sodium Potassium Chloride Carbon Dioxide Anion Gap BUN Creatinine Est GFR ( Amer) Est GFR (Non-Af Amer) Glucose Calcium Stool Occult Blood Impressions: Chest CT 11/30/17 17:16 IMPRESSION: Patchy consolidation is present all lobes, greatest in the right upper and right lower lobes. Multiple enlarged mediastinal nodes. Chest X-Ray 12/02/17 00:00 IMPRESSION: No change in diffuse patchy bilateral pneumonia. Assessment & Plan - Diagnosis (1) Heme positive stool Plan: had some sort of GI work up about 5 years ago will need to get old records history of not great to assume that patient had AVM the problem at this point , is that he will need his Apixaban or Eliquis stopped for at least 24 hours prior to undergoing any sort of work up this will allow time for his respiratory status to improve as well he does not appear to be having an active GI bleed (2) Iron deficiency anemia due to chronic blood loss Is this a current diagnosis for this admission?: Yes Plan: continue current therapy with IV iron get old records to see exactly what was done in the past patient has a very tenuous respiratory status continue to monitor would recommend stopping his Eliquis, this should be be done with cardiology guidance - Time Time Spent: 50 to 70 Minutes
[2017-12-03] MEDS: ATORVASTATIN CALCIUM 80 MG TABLET PO SCH (21:56)
[2017-12-03] MEDS: INSULIN LISPRO 100 UNIT/ML 3 ML VIAL SUBCUT PRN (22:00)
[2017-12-04] MEDS: IPRATROPIUM/ALBUTEROL 0.5-2.5 MG/3 ML AMPUL NEB SCH ×6 (00:32→19:50)
[2017-12-04] MEDS: CEFEPIME 2 GM/D5W RTU 2 GM/50 ML RTUPB IV SCH ×2 (05:32→18:01)
[2017-12-04] MEDS: LEVOTHYROXINE SODIUM 0.1 MG TABLET PO SCH (05:34)
--- NOTE | 2017-12-04 08:42 | PDOC PROGRESS REPORT ---
Subjective Progress Note for:: 12/04/17 Subjective:: No acute events, GI has evaluated patient patient is on blood thinners so they feel the patient needs to be off blood thinners when medically stable, and then patient can have endoscopies if needed. But right now they are not planning on doing the endoscopies. Reason For Visit: PNEUMONIA,SEPSIS,COPD EXACERBATION Physical Exam Vital Signs: Temp Pulse Resp BP Pulse Ox 97.6 F 79 18 96/40 L 94 12/04/17 03:55 12/04/17 08:09 12/04/17 08:09 12/04/17 03:55 12/04/17 08:09 Intake & Output 12/03/17 12/04/17 12/05/17 06:59 06:59 06:59 Intake Total 1960 2704 Output Total 700 1127 Balance 1260 1577 Weight 147.1 kg 150.3 kg General appearance: PRESENT: no acute distress, well-developed, well-nourished Head exam: PRESENT: atraumatic, normocephalic Eye exam: PRESENT: conjunctiva pink, EOMI, PERRLA. ABSENT: scleral icterus Ear exam: PRESENT: normal external ear exam Mouth exam: PRESENT: moist, tongue midline Neck exam: ABSENT: carotid bruit, JVD, lymphadenopathy, thyromegaly Respiratory exam: PRESENT: clear to auscultation stephanie. ABSENT: rales, rhonchi, wheezes Cardiovascular exam: PRESENT: RRR. ABSENT: diastolic murmur, rubs, systolic murmur Pulses: PRESENT: normal dorsalis pedis pul Vascular exam: PRESENT: normal capillary refill GI/Abdominal exam: PRESENT: normal bowel sounds, soft. ABSENT: distended, guarding, mass, organolmegaly, rebound, tenderness Rectal exam: PRESENT: deferred Extremities exam: PRESENT: full ROM. ABSENT: calf tenderness, clubbing, pedal edema Neurological exam: PRESENT: alert, awake, oriented to person, oriented to place , oriented to time, oriented to situation, CN II-XII grossly intact. ABSENT: motor sensory deficit Psychiatric exam: PRESENT: appropriate affect, normal mood. ABSENT: homicidal ideation, suicidal ideation Skin exam: PRESENT: dry, intact, warm. ABSENT: cyanosis, rash Results Laboratory Results: 12/03/17 18:25 12/03/17 05:34 12/03/17 18:25 WBC 13.4 H RBC 3.30 L Hgb 9.4 L Hct 27.7 L MCV 84 MCH 28.5 MCHC 34.0 RDW 16.4 H Plt Count 363 Seg Neutrophils % 83.3 H Lymphocytes % 6.1 L Monocytes % 8.9 Eosinophils % 1.2 Basophils % 0.5 Absolute Neutrophils 11.2 H Absolute Lymphocytes 0.8 Absolute Monocytes 1.2 Absolute Eosinophils 0.2 Absolute Basophils 0.1 Impressions: Chest CT 11/30/17 17:16 IMPRESSION: Patchy consolidation is present all lobes, greatest in the right upper and right lower lobes. Multiple enlarged mediastinal nodes. Chest X-Ray 12/02/17 00:00 IMPRESSION: No change in diffuse patchy bilateral pneumonia. Assessment & Plan - Diagnosis (1) Iron deficiency anemia due to chronic blood loss Is this a current diagnosis for this admission?: Yes Plan: Still believe is most likely secondary to AVM, and chronic GI bleed, we will need to reevaluate as an outpatient and plan for re-endoscopy. Retest iron studies and treat accordingly as well. (2) Mediastinal lymphadenopathy Is this a current diagnosis for this admission?: Yes Plan: Active, plan for reimaging in about 6-8 weeks. - Time Time Spent with patient: 15-24 minutes Disposition: Per hospitalist team, we will reevaluate as an outpatient, will sign off
[2017-12-04] MEDS: BUMETANIDE 1 MG TABLET PO SCH (09:08)
[2017-12-04] MEDS: VANCOMYCIN HCL 1,250 MG in DEXTROSE 5%-WATER 250 ML IV SCH ×2 (09:13→21:49)
[2017-12-04] MEDS: PANTOPRAZOLE SODIUM 40 MG VIAL IV SCH (09:14)
[2017-12-04] MEDS: LOSARTAN POTASSIUM 50 MG TABLET PO SCH (09:15)
[2017-12-04] MEDS: METOPROLOL TARTRATE 25 MG TABLET PO SCH ×2 (09:15→21:50)
[2017-12-04] MEDS ORDERED: FERUMOXYTOL (NON-ESRD) 510 MG/NS 100 ML IV ONE ×2 (10:00)
[2017-12-04] MEDS ORDERED: DIPHENHYDRAMINE HCL 50 MG/ML VIAL ONE (13:13)
[2017-12-04] MEDS ORDERED: ONDANSETRON HCL INJ/PF 4 MG/2 ML SDV ONE (13:13)
[2017-12-04] MEDS ORDERED: MIDAZOLAM 2 MG/2 ML INJ ONE (13:14)
[2017-12-04] MEDS ORDERED: NALOXONE HCL INJ/PF 0.4 MG/1 ML SDV ONE (13:14)
[2017-12-04] MEDS ORDERED: GLUCAGON,HUMAN RECOMB 1 MG INJ ONE (13:15)
[2017-12-04] MEDS ORDERED: EPINEPHRINE INJ 1 MG/10 ML DISP.SYRIN ONE (13:15)
[2017-12-04] MEDS ORDERED: FENTANYL CITRATE INJ/PF 100 MCG/2 ML AMPUL ONE (13:15)
[2017-12-04] MEDS ORDERED: FLUMAZENIL INJ 0.5 MG/5 ML VIAL ONE (13:15)
[2017-12-04] MEDS: MIDAZOLAM 2 MG/2 ML INJ ONE ×2 (14:26→14:30)
[2017-12-04] MEDS: FENTANYL CITRATE INJ/PF 100 MCG/2 ML AMPUL ONE ×2 (14:28→14:32)
--- NOTE | 2017-12-04 14:54 | Operative Report ---
Operative Report DATE OF SURGERY: 12/04/17 Operative Report: The risks benefits and alternatives of the procedure explained to the patient in detail and informed consent is obtained.A GIF Olympus video scope was inserted into the patient's mouth and hypopharynx, the esophagus is identified intubated and insufflated, the scope was then advanced through the esophagus stomach and duodenum, retroflexion maneuver is done the esophagus stomach and first and second portions of the duodenum examined PREOPERATIVE DIAGNOSIS: Chronic anemia. Heme positive stools POSTOPERATIVE DIAGNOSIS: Malik's esophagus. Gastritis nodular status post biopsy. Old peptic ulcer noted. No active bleeding noted. Patient appears to have had a previous PEG site OPERATION: EGD with ablation. EGD with biopsy SURGEON: SHAYE LEBRON ANESTHESIA: Moderate Sedation - 2 mg of Versed, 50 mcg of fentanyl. Conscious sedation monitoring time 30 minutes. TISSUE REMOVED OR ALTERED: As noted above. COMPLICATIONS: None. ESTIMATED BLOOD LOSS: None. INTRAOPERATIVE FINDINGS: As noted above. PROCEDURE: Patient tolerated procedure well. No immediate postprocedure complications are noted. Patient sent back to his room in good condition. Resume previous diet Resume previous medications and preprocedure activity level Previous colonoscopy normal We will need to get records Follow as needed We will wait on biopsies and treat for Helicobacter pylori as necessary
[2017-12-04] MEDS: NORMAL SALINE 1000 ML 1,000 ML IV PRN (16:53)
--- NOTE | 2017-12-04 18:23 | PDOC PROGRESS REPORT ---
Subjective Progress Note for:: 12/04/17 Subjective:: The patient is waiting patiently for his EGD. No new complaints. Reason For Visit: PNEUMONIA,SEPSIS,COPD EXACERBATION Physical Exam Vital Signs: Temp Pulse Resp BP Pulse Ox 98.0 F 69 16 138/78 H 95 12/04/17 15:41 12/04/17 16:32 12/04/17 16:32 12/04/17 15:41 12/04/17 16:32 Intake & Output 12/03/17 12/04/17 12/05/17 06:59 06:59 06:59 Intake Total 1960 2704 1574 Output Total 700 1127 850 Balance 1260 1577 724 Weight 147.1 kg 150.3 kg General appearance: PRESENT: no acute distress, well-developed, well-nourished Head exam: PRESENT: atraumatic, normocephalic Eye exam: PRESENT: conjunctiva pale, EOMI, PERRLA. ABSENT: scleral icterus Mouth exam: PRESENT: moist, tongue midline Neck exam: ABSENT: carotid bruit, JVD, lymphadenopathy, thyromegaly Respiratory exam: PRESENT: wheezes, other - Mildly increased work of breathing. No rales, or rhonchi. No tactile fremitus. Positive for scattered wheezes.. ABSENT: rales, rhonchi Cardiovascular exam: PRESENT: RRR. ABSENT: diastolic murmur, rubs, systolic murmur Pulses: PRESENT: normal dorsalis pedis pul Vascular exam: PRESENT: normal capillary refill, pallor GI/Abdominal exam: PRESENT: normal bowel sounds, soft. ABSENT: distended, guarding, mass, organolmegaly, rebound, tenderness Rectal exam: PRESENT: deferred Extremities exam: PRESENT: full ROM. ABSENT: calf tenderness, clubbing, pedal edema Neurological exam: PRESENT: alert, awake, oriented to person, oriented to place , oriented to time, oriented to situation, CN II-XII grossly intact. ABSENT: motor sensory deficit Psychiatric exam: PRESENT: appropriate affect, normal mood. ABSENT: homicidal ideation, suicidal ideation Skin exam: PRESENT: dry, intact, warm. ABSENT: cyanosis, rash Results Laboratory Results: 12/03/17 18:25 12/03/17 05:34 12/03/17 18:25 WBC 13.4 H RBC 3.30 L Hgb 9.4 L Hct 27.7 L MCV 84 MCH 28.5 MCHC 34.0 RDW 16.4 H Plt Count 363 Seg Neutrophils % 83.3 H Lymphocytes % 6.1 L Monocytes % 8.9 Eosinophils % 1.2 Basophils % 0.5 Absolute Neutrophils 11.2 H Absolute Lymphocytes 0.8 Absolute Monocytes 1.2 Absolute Eosinophils 0.2 Absolute Basophils 0.1 Impressions: Chest CT 11/30/17 17:16 IMPRESSION: Patchy consolidation is present all lobes, greatest in the right upper and right lower lobes. Multiple enlarged mediastinal nodes. Chest X-Ray 12/02/17 00:00 IMPRESSION: No change in diffuse patchy bilateral pneumonia. Assessment & Plan - Diagnosis (1) Gastritis Qualifiers: Chronicity: chronic Gastritis bleeding: with bleeding Is this a current diagnosis for this admission?: Yes Plan: As per GI. (2) Malik esophagus Qualifiers: Malik's esophagus type: with dysplasia of unspecified degree Qualified Code(s): K22.719 - Malik's esophagus with dysplasia, unspecified; K22.71 - Malik's esophagus with dysplasia Is this a current diagnosis for this admission?: Yes Plan: As per GI (3) Volume depletion Is this a current diagnosis for this admission?: Yes Plan: IV fluids (4) VERONICA (acute kidney injury) Is this a current diagnosis for this admission?: Yes Plan: IV normal saline (5) Atrial fibrillation Qualifiers: Atrial fibrillation type: chronic Qualified Code(s): I48.2 - Chronic atrial fibrillation Is this a current diagnosis for this admission?: Yes Plan: Continue home medications. I will restart Apixaban when okay with GI. (6) CAD (coronary artery disease) Qualifiers: Coronary Disease-Associated Artery/Lesion type: [place] artery [place] vs. transplanted heart: [place] heart Associated angina: without angina Qualified Code(s): I25.10 - Atherosclerotic heart disease of [place] coronary artery without angina pectoris Is this a current diagnosis for this admission?: Yes Plan: Continue home medications. (7) COPD exacerbation Is this a current diagnosis for this admission?: Yes Plan: Nebulizer treatments. Steroids held due to gastritis. (8) Diabetes mellitus type 2 in obese Is this a current diagnosis for this admission?: Yes Plan: FSBS and SSI. Monitor glucoses. (9) Heme positive stool Is this a current diagnosis for this admission?: Yes Plan: Due top gastritis as per EGD today. PPI as per GI. (10) Hyperlipidemia Qualifiers: Hyperlipidemia type: mixed hyperlipidemia Qualified Code(s): E78.2 - Mixed hyperlipidemia Is this a current diagnosis for this admission?: Yes Plan: Statin (11) Hypertension Qualifiers: Hypertension type: essential hypertension Qualified Code(s): I10 - Essential (primary) hypertension Is this a current diagnosis for this admission?: Yes Plan: Blood pressures actually on the low side today. Hold antihypertensives for now. (12) Iron deficiency anemia due to chronic blood loss Is this a current diagnosis for this admission?: Yes Plan: Supplemental Fe as per hematology/oncology. (13) Mediastinal lymphadenopathy Is this a current diagnosis for this admission?: Yes - Time Time Spent with patient: 25-34 minutes
[2017-12-04] MEDS: ATORVASTATIN CALCIUM 80 MG TABLET PO SCH (21:49)
[2017-12-05] MEDS: IPRATROPIUM/ALBUTEROL 0.5-2.5 MG/3 ML AMPUL NEB SCH ×6 (00:18→20:23)
[2017-12-05 04:58] LABS: ABSOLUTE BASOPHILS # (AUTO) 0.1 10^3/uL (0.0-0.2); ABSOLUTE EOSINOPHILS # (AUTO) 0.1 10^3/uL (0.0-0.6); ABSOLUTE LYMPHOCYTES (AUTO) 0.6 10^3/uL (0.5-4.7); ABSOLUTE MONOCYTES (AUTO) 1.2 10^3/uL (0.1-1.4); ABSOLUTE NEUT (AUTO) 10.1 10^3/uL (1.7-8.2); BASOPHILS % (AUTO) 0.5 % (0-2); EOSINOPHILS % (AUTO) 0.8 % (0-6); HEMOGLOBIN 9.2 g/dL (13.5-17.0); LYMPHOCYTES % (AUTO) 5.3 % (13-45); MEAN CORPUSCULAR HEMOGLOBIN 28.7 pg (27.0-33.4); MEAN CORPUSCULAR HGB CONC 34.1 g/dL (32.0-36.0); MEAN CORPUSCULAR VOLUME 84 fl (80-97); MONOCYTES % (AUTO) 10.2 % (3-13); PLATELET COUNT 338 10^3/uL (150-450); RED CELL DISTRIBUTION WIDTH 16.5 % (11.5-14.0); SEGMENTED NEUTROPHILS % (AUTO) 83.2 % (42-78); TOTAL CELLS COUNTED % (AUTO) 100 %; WHITE BLOOD COUNT 12.1 10^3/uL (4.0-10.5)
[2017-12-05] MEDS: NORMAL SALINE 1000 ML 1,000 ML IV PRN ×2 (04:59→17:49)
[2017-12-05] MEDS: LEVOTHYROXINE SODIUM 0.1 MG TABLET PO SCH (05:00)
[2017-12-05] MEDS: CEFEPIME 2 GM/D5W RTU 2 GM/50 ML RTUPB IV SCH ×2 (05:01→17:48)
[2017-12-05 05:19] LABS: ANION GAP 10 (5-19); BLOOD UREA NITROGEN 11 mg/dL (7-20); CALCIUM 7.9 mg/dL (8.4-10.2); CARBON DIOXIDE 25 mmol/L (22-30); CHLORIDE 101 mmol/L (98-107); GLUCOSE 149 mg/dL (75-110); POTASSIUM 4.2 mmol/L (3.6-5.0); SODIUM 136.1 mmol/L (137-145)
--- NOTE | 2017-12-05 07:19 | PDOC PROGRESS REPORT ---
Subjective Progress Note for:: 12/05/17 Subjective:: Patient underwent procedure yesterday and tolerated well spoke extensively with who provides an excellent and accurate history patient had a prolonged admission at [facility] in 2011, at that time has trach and PEG placed, which were subsequently removed later that same year, patient had GI procedures done as an outpatient he had both and EGD and colonoscopy done the colonoscopy was normal the EGD was noted for a bleeding ulcer and had cauterization done since then no other procedures done today his H/H is more stable he had nodular gastritis, and biopsy was obtained patient states no bleeding overnight has scarring of previous ulcer and noted to have an area in the gastric body that is consistent with a previous PEG tube site there are no AVM's noted his has expressed concerns about patient's current respiratory status is followed by Dr Foster while his mediastinal enlargement of his lymph nodes could or could be reactive it would be advisable that a pulmonary consult could be arranged while he is here or that he be followed closely as an outpatient to make sure there is no other etiology as says," he's had pneumonia in the past, but this is the first time that his lymph nodes are enlarged" with his iron deficiency anemia, that would certainly need to be worked up is in the process of trying to get me previous colonoscopy reports, but suspect that he would not need one at this time Reason For Visit: PNEUMONIA,SEPSIS,COPD EXACERBATION Physical Exam Vital Signs: Temp Pulse Resp BP Pulse Ox 99.2 F 67 14 122/67 87 L 12/05/17 03:14 12/05/17 03:14 12/05/17 03:14 12/05/17 03:14 12/05/17 03:14 Intake & Output 12/04/17 12/05/17 12/06/17 06:59 06:59 06:59 Intake Total 2704 3724 Output Total 1127 850 Balance 1577 2874 Weight 150.3 kg 150.5 kg General appearance: PRESENT: no acute distress, well-developed, well-nourished Head exam: PRESENT: atraumatic, normocephalic Eye exam: PRESENT: EOMI, PERRLA. ABSENT: nystagmus, periorbital swelling, scleral icterus Mouth exam: PRESENT: moist, neck supple Throat exam: ABSENT: tonsillar exudate, tonsillogmegaly Neck exam: ABSENT: meningismus, tenderness, thyromegaly Respiratory exam: PRESENT: prolonged expiratory phas, symmetrical. ABSENT: stridor, wheezes Cardiovascular exam: PRESENT: +S1, +S2 GI/Abdominal exam: PRESENT: soft. ABSENT: rebound, rigid, tenderness Extremities exam: PRESENT: pedal edema Musculoskeletal exam: PRESENT: full ROM Neurological exam: PRESENT: oriented to time, oriented to situation, reflexes normal, CN II-XII grossly intact Focused psych exam: ABSENT: restlessness Skin exam: PRESENT: normal color. ABSENT: mottled, pallor, urticaria, vesicles Results Laboratory Results: 12/05/17 03:54 12/05/17 03:54 12/05/17 12/05/17 03:54 03:54 WBC 12.1 H RBC 3.20 L Hgb 9.2 L Hct 27.0 L MCV 84 MCH 28.7 MCHC 34.1 RDW 16.5 H Plt Count 338 Seg Neutrophils % 83.2 H Lymphocytes % 5.3 L Monocytes % 10.2 Eosinophils % 0.8 Basophils % 0.5 Absolute Neutrophils 10.1 H Absolute Lymphocytes 0.6 Absolute Monocytes 1.2 Absolute Eosinophils 0.1 Absolute Basophils 0.1 Sodium 136.1 L Potassium 4.2 Chloride 101 Carbon Dioxide 25 Anion Gap 10 BUN 11 Creatinine 0.84 Est GFR ( Amer) > 60 Est GFR (Non-Af Amer) > 60 Glucose 149 H Calcium 7.9 L Impressions: Chest CT 11/30/17 17:16 IMPRESSION: Patchy consolidation is present all lobes, greatest in the right upper and right lower lobes. Multiple enlarged mediastinal nodes. Chest X-Ray 12/02/17 00:00 IMPRESSION: No change in diffuse patchy bilateral pneumonia. Assessment & Plan - Diagnosis (1) Heme positive stool Is this a current diagnosis for this admission?: Yes Plan: no AVM noted area of Malik's that is ablated so that he would not need further procedures wait on biopsy tx for H.Pylori if positive healing ulcer normal colonoscopy in the past (2) Iron deficiency anemia due to chronic blood loss Is this a current diagnosis for this admission?: Yes Plan: should have work up fro the pulmonary standpoint if his mediastinal lymph nodes do not regress with improvement of his pneumonia he is followed as an outpatient by Dr Foster is requesting inpatient evaluation - Time Time Spent with patient: 25-34 minutes
[2017-12-05] MEDS: LOSARTAN POTASSIUM 50 MG TABLET PO SCH (10:29)
[2017-12-05] MEDS: METOPROLOL TARTRATE 25 MG TABLET PO SCH ×2 (10:29→22:01)
[2017-12-05] MEDS: VANCOMYCIN HCL 1,250 MG in DEXTROSE 5%-WATER 250 ML IV SCH (10:30)
[2017-12-05] MEDS: BUMETANIDE 1 MG TABLET PO SCH (12:35)
--- NOTE | 2017-12-05 15:36 | PDOC PROGRESS REPORT ---
Subjective Progress Note for:: 12/05/17 Subjective:: The patient is sitting up at bedside. SaO2 on 2L is 97%. No new complaints. Reason For Visit: PNEUMONIA,SEPSIS,COPD EXACERBATION Physical Exam Vital Signs: Temp Pulse Resp BP Pulse Ox 97.7 F 74 16 108/40 L 100 12/05/17 12:02 12/05/17 12:16 12/05/17 12:16 12/05/17 12:02 12/05/17 12:02 Intake & Output 12/04/17 12/05/17 12/06/17 06:59 06:59 06:59 Intake Total 2704 3724 354 Output Total 1127 850 800 Balance 1577 2874 -446 Weight 150.3 kg 150.5 kg General appearance: PRESENT: no acute distress, morbidly obese, other - The patient is elderly, weak, and frail. Head exam: PRESENT: atraumatic, normocephalic Eye exam: ABSENT: scleral icterus Neck exam: ABSENT: carotid bruit, JVD, lymphadenopathy, thyromegaly Respiratory exam: PRESENT: other - No increased work of breathing. No wheezes, rales, or rhonchi. No tactile fremitus.. ABSENT: rales, rhonchi, wheezes Cardiovascular exam: PRESENT: RRR, other - No lateral PMI. No thrills.. ABSENT : diastolic murmur, rubs, systolic murmur Pulses: PRESENT: other - Diminished distal pulses. Vascular exam: PRESENT: normal capillary refill GI/Abdominal exam: PRESENT: normal bowel sounds, soft. ABSENT: distended, guarding, mass, organolmegaly, rebound, tenderness Rectal exam: PRESENT: deferred Extremities exam: PRESENT: full ROM, other - Left lower extremity chronically swollen.. ABSENT: calf tenderness, clubbing, pedal edema Neurological exam: PRESENT: alert, awake, oriented to person, oriented to place , oriented to time, oriented to situation, CN II-XII grossly intact. ABSENT: motor sensory deficit Psychiatric exam: PRESENT: appropriate affect, normal mood. ABSENT: homicidal ideation, suicidal ideation Skin exam: PRESENT: dry, intact, warm. ABSENT: cyanosis, rash Results Laboratory Results: 12/05/17 03:54 12/05/17 03:54 12/05/17 12/05/17 03:54 03:54 WBC 12.1 H RBC 3.20 L Hgb 9.2 L Hct 27.0 L MCV 84 MCH 28.7 MCHC 34.1 RDW 16.5 H Plt Count 338 Seg Neutrophils % 83.2 H Lymphocytes % 5.3 L Monocytes % 10.2 Eosinophils % 0.8 Basophils % 0.5 Absolute Neutrophils 10.1 H Absolute Lymphocytes 0.6 Absolute Monocytes 1.2 Absolute Eosinophils 0.1 Absolute Basophils 0.1 Sodium 136.1 L Potassium 4.2 Chloride 101 Carbon Dioxide 25 Anion Gap 10 BUN 11 Creatinine 0.84 Est GFR ( Amer) > 60 Est GFR (Non-Af Amer) > 60 Glucose 149 H Calcium 7.9 L Impressions: Chest CT 11/30/17 17:16 IMPRESSION: Patchy consolidation is present all lobes, greatest in the right upper and right lower lobes. Multiple enlarged mediastinal nodes. Chest X-Ray 12/02/17 00:00 IMPRESSION: No change in diffuse patchy bilateral pneumonia. Assessment & Plan - Diagnosis (1) Gastritis Qualifiers: Chronicity: chronic Gastritis bleeding: with bleeding Is this a current diagnosis for this admission?: Yes Plan: PPI as per GI. (2) Malik esophagus Qualifiers: Malik's esophagus type: with dysplasia of unspecified degree Qualified Code(s): K22.719 - Malik's esophagus with dysplasia, unspecified; K22.71 - Malik's esophagus with dysplasia Is this a current diagnosis for this admission?: Yes Plan: PPI as per GI (3) Volume depletion Is this a current diagnosis for this admission?: Yes Plan: Resolving. (4) VERONICA (acute kidney injury) Is this a current diagnosis for this admission?: Yes Plan: Resolving (5) Atrial fibrillation Qualifiers: Atrial fibrillation type: chronic Qualified Code(s): I48.2 - Chronic atrial fibrillation Is this a current diagnosis for this admission?: Yes Plan: Rate is controlled. Anticoagulation has been held due to anemia and GI bleed. (6) CAD (coronary artery disease) Qualifiers: Coronary Disease-Associated Artery/Lesion type: [place] artery [place] vs. transplanted heart: [place] heart Associated angina: without angina Qualified Code(s): I25.10 - Atherosclerotic heart disease of [place] coronary artery without angina pectoris Is this a current diagnosis for this admission?: Yes Plan: Continue home medications. (7) COPD exacerbation Is this a current diagnosis for this admission?: Yes Plan: Will wean O2 to off to maintain Oxygen saturations greater than 92%. (8) Diabetes mellitus type 2 in obese Is this a current diagnosis for this admission?: Yes Plan: FSBS 151-225 in the last 24 hours. Continue FSBS and SSI. (9) Heme positive stool Is this a current diagnosis for this admission?: Yes Plan: S/P EGD with findings of a healing ulcer, gastritis, Malik's esophagus. PPI and management by GI. (10) Hyperlipidemia Qualifiers: Hyperlipidemia type: mixed hyperlipidemia Qualified Code(s): E78.2 - Mixed hyperlipidemia Is this a current diagnosis for this admission?: Yes Plan: Continue statin. (11) Hypertension Qualifiers: Hypertension type: essential hypertension Qualified Code(s): I10 - Essential (primary) hypertension Is this a current diagnosis for this admission?: Yes Plan: Continue home antihypertensives. (12) Iron deficiency anemia due to chronic blood loss Is this a current diagnosis for this admission?: Yes Plan: Iron supplementation on discharge. (13) Mediastinal lymphadenopathy Is this a current diagnosis for this admission?: Yes Plan: Will need repeat CT chest in 6 weeks to follow. Will follow up with oncology for this. - Time Time Spent with patient: 25-34 minutes Medications reviewed and adjusted accordingly: Yes Anticipated discharge: Home Within: within 24 hours
--- NOTE | 2017-12-05 16:34 | RADIOLOGY REPORT (SQ) ---
EXAM DESCRIPTION: CHEST SINGLE VIEW COMPLETED DATE/TIME: 12/05/2017 4:25 pm REASON FOR STUDY: dyspnea COMPARISON: 12/02/2017 EXAM PARAMETERS: NUMBER OF VIEWS: One view. TECHNIQUE: Single frontal radiographic view of the chest acquired. RADIATION DOSE: NA LIMITATIONS: None. FINDINGS: LUNGS AND PLEURA: There is increased opacification in the right upper lobe adjacent to the minor fissure. There is patchy opacification in both lung bases. MEDIASTINUM AND HILAR STRUCTURES: No masses. Contour normal. HEART AND VASCULAR STRUCTURES: Cardiomegaly. No ilana pulmonary edema. BONES: No acute findings. HARDWARE: Sternotomy wires. OTHER: No other significant finding. IMPRESSION: Multicentric pneumonia. Cardiomegaly without ilana CHF. TECHNICAL DOCUMENTATION: JOB ID: [id number] [employer]- All Rights Reserved Reading location - IP/workstation name: [email or web address]
[2017-12-05] MEDS: ATORVASTATIN CALCIUM 80 MG TABLET PO SCH (22:01)
[2017-12-06] MEDS: IPRATROPIUM/ALBUTEROL 0.5-2.5 MG/3 ML AMPUL NEB SCH ×7 (00:09→23:42)
[2017-12-06] MEDS: LEVOTHYROXINE SODIUM 0.1 MG TABLET PO SCH (05:42)
[2017-12-06] MEDS: CEFEPIME 2 GM/D5W RTU 2 GM/50 ML RTUPB IV SCH ×2 (05:42→17:20)
[2017-12-06] MEDS: NORMAL SALINE 1000 ML 1,000 ML IV PRN (05:43)
[2017-12-06] MEDS: INSULIN LISPRO 100 UNIT/ML 3 ML VIAL SUBCUT PRN ×2 (09:00→11:57)
[2017-12-06] MEDS: BUMETANIDE 1 MG TABLET PO SCH (09:00)
[2017-12-06] MEDS: LOSARTAN POTASSIUM 50 MG TABLET PO SCH (09:05)
[2017-12-06] MEDS: METOPROLOL TARTRATE 25 MG TABLET PO SCH ×2 (09:05→21:02)
[2017-12-06] MEDS ORDERED: FUROSEMIDE INJ/PF 40 MG/4 ML SDV IV ONE (11:30)
[2017-12-06] MEDS ORDERED: ONDANSETRON 4 MG TAB.RAPDIS PO PRN (12:30)
--- NOTE | 2017-12-06 17:18 | PDOC PROGRESS REPORT ---
Subjective Progress Note for:: 12/06/17 Subjective:: The patient's and nurse report that the patient had a difficult time sleeping on his back last night. His oxygen saturations remained > 92%. When he was walked his saturations dropped to 84%. He feels comfortable sitting up off of O2 when his saturations are in the low to mid 90's. Reason For Visit: PNEUMONIA,SEPSIS,COPD EXACERBATION Physical Exam Vital Signs: Temp Pulse Resp BP Pulse Ox 98.1 F 91 16 121/69 97 12/06/17 15:26 12/06/17 16:18 12/06/17 16:18 12/06/17 15:26 12/06/17 16:18 Intake & Output 12/05/17 12/06/17 12/07/17 06:59 06:59 06:59 Intake Total 3724 4003 200 Output Total 850 1425 Balance 2874 2578 200 Weight 150.5 kg 153.5 kg General appearance: PRESENT: no acute distress, cooperative, morbidly obese Neck exam: ABSENT: JVD, lymphadenopathy, tenderness, thyromegaly Respiratory exam: PRESENT: other - No increased work of breathing. No wheezes, rales, or rhonchi. No tactile fremitus.. ABSENT: rales, rhonchi, wheezes Cardiovascular exam: PRESENT: RRR, other - No lateral PMI. No thrills.. ABSENT : gallop, rubs, systolic murmur Pulses: PRESENT: other - Diminished distal pulses. GI/Abdominal exam: PRESENT: soft, other - Morbidly obese. I am unable to evaluate the abdomen for organomegaly, masses, or hernias due to the patient's body habitus. Bowel sounds are distant.. ABSENT: tenderness Extremities exam: PRESENT: +2 edema - Lower extremities bilaterally. Neurological exam: PRESENT: alert, altered, awake, oriented to person, oriented to place, oriented to time, oriented to situation Psychiatric exam: PRESENT: appropriate affect, normal mood Skin exam: PRESENT: dry, intact, warm Results Laboratory Results: 12/05/17 03:54 12/05/17 03:54 12/05/17 16:29 NT-Pro-B Natriuret Pep 2800 H Impressions: Chest CT 11/30/17 17:16 IMPRESSION: Patchy consolidation is present all lobes, greatest in the right upper and right lower lobes. Multiple enlarged mediastinal nodes. Chest X-Ray 12/05/17 00:00 IMPRESSION: Multicentric pneumonia. Cardiomegaly without ilana CHF. 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 IV fluids stopped. (4) VERONICA (acute kidney injury) Is this a current diagnosis for this admission?: Yes Plan: Resolved. (5) Atrial fibrillation Qualifiers: Atrial fibrillation type: chronic Qualified Code(s): I48.2 - Chronic atrial fibrillation Is this a current diagnosis for this admission?: Yes Plan: Rate is controlled. Anticoagulation has been held due to anemia and GI bleed. (6) CAD (coronary artery disease) Qualifiers: Coronary Disease-Associated Artery/Lesion type: [place] artery [place] vs. transplanted heart: [place] heart Associated angina: without angina Qualified Code(s): I25.10 - Atherosclerotic heart disease of [place] coronary artery without angina pectoris Is this a current diagnosis for this admission?: Yes (7) COPD exacerbation Is this a current diagnosis for this admission?: Yes (8) Diabetes mellitus type 2 in obese Is this a current diagnosis for this admission?: Yes (9) Heme positive stool Is this a current diagnosis for this admission?: Yes (10) Hyperlipidemia Qualifiers: Hyperlipidemia type: mixed hyperlipidemia Qualified Code(s): E78.2 - Mixed hyperlipidemia Is this a current diagnosis for this admission?: Yes (11) Hypertension Qualifiers: Hypertension type: essential hypertension Qualified Code(s): I10 - Essential (primary) hypertension Is this a current diagnosis for this admission?: Yes (12) Iron deficiency anemia due to chronic blood loss Is this a current diagnosis for this admission?: Yes (13) Mediastinal lymphadenopathy Is this a current diagnosis for this admission?: Yes (14) Acute exacerbation of CHF (congestive heart failure) Qualifiers: Heart failure type: diastolic Qualified Code(s): I50.33 - Acute on chronic diastolic (congestive) heart failure Is this a current diagnosis for this admission?: Yes Plan: diuresis - Time Time Spent with patient: 35 or more minutes Medications reviewed and adjusted accordingly: Yes Anticipated discharge: Home
[2017-12-06] MEDS: FUROSEMIDE INJ/PF 40 MG/4 ML SDV IV SCH (21:02)
[2017-12-06] MEDS: ATORVASTATIN CALCIUM 80 MG TABLET PO SCH (21:03)
[2017-12-06] MEDS ORDERED: FUROSEMIDE INJ/PF 40 MG/4 ML SDV IV SCH (22:00)
[2017-12-07] MEDS: IPRATROPIUM/ALBUTEROL 0.5-2.5 MG/3 ML AMPUL NEB SCH ×6 (04:10→23:57)
[2017-12-07] MEDS: CEFEPIME 2 GM/D5W RTU 2 GM/50 ML RTUPB IV SCH ×2 (05:41→17:39)
[2017-12-07] MEDS: LEVOTHYROXINE SODIUM 0.1 MG TABLET PO SCH (05:42)
[2017-12-07 06:00] LABS: ANION GAP 9 (5-19); BLOOD UREA NITROGEN 14 mg/dL (7-20); CARBON DIOXIDE 29 mmol/L (22-30); CHLORIDE 100 mmol/L (98-107); GLUCOSE 142 mg/dL (75-110); SODIUM 138.1 mmol/L (137-145)
[2017-12-07] MEDS: METOPROLOL TARTRATE 25 MG TABLET PO SCH ×2 (10:48→21:12)
[2017-12-07] MEDS: FUROSEMIDE INJ/PF 40 MG/4 ML SDV IV SCH (10:48)
[2017-12-07] MEDS: LOSARTAN POTASSIUM 50 MG TABLET PO SCH (10:48)
--- NOTE | 2017-12-07 18:07 | PDOC PROGRESS REPORT ---
Subjective Progress Note for:: 12/07/17 Subjective:: The patient states that he was able to lie flat more easily last night and that his breathing seems easier today. He is again on 2L O2 by nc despite saturations in the mid nineties to 100%. Reason For Visit: PNEUMONIA,SEPSIS,COPD EXACERBATION Physical Exam Vital Signs: Temp Pulse Resp BP Pulse Ox 98.6 F 67 20 92/62 L 97 12/07/17 15:53 12/07/17 15:53 12/07/17 15:53 12/07/17 15:53 12/07/17 15:53 Intake & Output 12/06/17 12/07/17 12/08/17 06:59 06:59 06:59 Intake Total 4003 1486 713 Output Total 1425 3030 1875 Balance 1336 -592 -1105 Weight 153.5 kg 151.1 kg General appearance: PRESENT: no acute distress, morbidly obese, well-developed Neck exam: ABSENT: carotid bruit, JVD, lymphadenopathy, thyromegaly Respiratory exam: PRESENT: other - No increased work of breathing. No tactile fremitus.. ABSENT: rales, rhonchi, wheezes Cardiovascular exam: PRESENT: RRR. ABSENT: diastolic murmur, rubs, systolic murmur Pulses: PRESENT: other - Diminished distal pulses. GI/Abdominal exam: PRESENT: normal bowel sounds, soft. ABSENT: distended, guarding, mass, organolmegaly, rebound, tenderness Rectal exam: PRESENT: deferred Extremities exam: PRESENT: full ROM. ABSENT: calf tenderness, clubbing, pedal edema Neurological exam: PRESENT: alert, awake, oriented to person, oriented to place , oriented to time, oriented to situation, CN II-XII grossly intact. ABSENT: motor sensory deficit Psychiatric exam: PRESENT: appropriate affect, normal mood. ABSENT: homicidal ideation, suicidal ideation Skin exam: PRESENT: dry, intact, warm. ABSENT: cyanosis, rash Results Laboratory Results: 12/05/17 03:54 12/07/17 04:43 12/07/17 04:43 Sodium 138.1 Potassium 4.0 Chloride 100 Carbon Dioxide 29 Anion Gap 9 BUN 14 Creatinine 0.90 Est GFR ( Amer) > 60 Est GFR (Non-Af Amer) > 60 Glucose 142 H Calcium 8.0 L 12/05/17 16:29 NT-Pro-B Natriuret Pep 2800 H Impressions: Chest CT 11/30/17 17:16 IMPRESSION: Patchy consolidation is present all lobes, greatest in the right upper and right lower lobes. Multiple enlarged mediastinal nodes. Chest X-Ray 12/05/17 00:00 IMPRESSION: Multicentric pneumonia. Cardiomegaly without ilana CHF. Assessment & Plan - Diagnosis (1) Acute exacerbation of CHF (congestive heart failure) Qualifiers: Heart failure type: diastolic Qualified Code(s): I50.33 - Acute on chronic diastolic (congestive) heart failure Is this a current diagnosis for this admission?: Yes Plan: With diuresis the patient has maintained a negative fluid balance over the past day. Will continue diuresis and monitor renal status and electrolytes. (2) Gastritis Qualifiers: Chronicity: chronic Gastritis bleeding: with bleeding Is this a current diagnosis for this admission?: Yes Plan: PPI as per GI. Stable. No further reports of bleeding. 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 Anticoagulation has been held due to anemia and GI bleed. (6) CAD (coronary artery disease) Qualifiers: Coronary Disease-Associated Artery/Lesion type: [place] artery [place] vs. transplanted heart: [place] heart Associated angina: without angina Qualified Code(s): I25.10 - Atherosclerotic heart disease of [place] coronary artery without angina pectoris Is this a current diagnosis for this admission?: Yes Plan: Continue home medications. (7) COPD exacerbation Is this a current diagnosis for this admission?: Yes Plan: Will wean O2 to off to maintain Oxygen saturations greater than 91%. (8) Diabetes mellitus type 2 in obese Is this a current diagnosis for this admission?: Yes Plan: FSBS with fair control in the last 24 hours. Continue FSBS and SSI. (9) Heme positive stool Is this a current diagnosis for this admission?: Yes Plan: S/P EGD with findings of a healing ulcer, gastritis, Malik's esophagus. PPI and management by GI. (10) Hyperlipidemia Qualifiers: Hyperlipidemia type: mixed hyperlipidemia Qualified Code(s): E78.2 - Mixed hyperlipidemia Is this a current diagnosis for this admission?: Yes Plan: Continue statin. (11) Hypertension Qualifiers: Hypertension type: essential hypertension Qualified Code(s): I10 - Essential (primary) hypertension Is this a current diagnosis for this admission?: Yes Plan: Continue home antihypertensives. (12) Iron deficiency anemia due to chronic blood loss Is this a current diagnosis for this admission?: Yes Plan: Iron supplementation on discharge. (13) Mediastinal lymphadenopathy Is this a current diagnosis for this admission?: Yes - Time Time Spent with patient: 35 or more minutes Medications reviewed and adjusted accordingly: Yes Anticipated discharge: Home
[2017-12-07] MEDS: ATORVASTATIN CALCIUM 80 MG TABLET PO SCH (21:12)
[2017-12-07] MEDS: INSULIN LISPRO 100 UNIT/ML 3 ML VIAL SUBCUT PRN (22:33)
[2017-12-08] MEDS: IPRATROPIUM/ALBUTEROL 0.5-2.5 MG/3 ML AMPUL NEB SCH ×3 (05:36→12:11)
[2017-12-08] MEDS: LEVOTHYROXINE SODIUM 0.1 MG TABLET PO SCH (06:32)
[2017-12-08 06:51] LABS: ANION GAP 9 (5-19); BLOOD UREA NITROGEN 13 mg/dL (7-20); CALCIUM 8.3 mg/dL (8.4-10.2); CARBON DIOXIDE 27 mmol/L (22-30); CHLORIDE 101 mmol/L (98-107); GLUCOSE 145 mg/dL (75-110); SODIUM 136.9 mmol/L (137-145)
[2017-12-08] MEDS: INSULIN LISPRO 100 UNIT/ML 3 ML VIAL SUBCUT PRN ×2 (08:24→12:16)
[2017-12-08] MEDS: METOPROLOL TARTRATE 25 MG TABLET PO SCH (09:13)
[2017-12-08] MEDS: LOSARTAN POTASSIUM 50 MG TABLET PO SCH (09:13)
[2017-12-08 14:35] VITALS: BP 114/62
--- NOTE | 2017-12-08 18:02 | PDOC DISCHARGE SUMMARY ---
General - Admit/Disc Date/PCP Admission Date/Primary Care Provider: 11/30/17 18:06 CHELSEA GIRON MD Discharge Date: 12/08/17 - Discharge Diagnosis (1) Acute exacerbation of CHF (congestive heart failure) Is this a current diagnosis for this admission?: Yes (2) Gastritis Is this a current diagnosis for this admission?: Yes (3) Malik esophagus Is this a current diagnosis for this admission?: Yes (4) VERONICA (acute kidney injury) Is this a current diagnosis for this admission?: Yes (5) Atrial fibrillation Is this a current diagnosis for this admission?: Yes (6) CAD (coronary artery disease) Is this a current diagnosis for this admission?: Yes (7) COPD exacerbation Is this a current diagnosis for this admission?: Yes (8) Diabetes mellitus type 2 in obese Is this a current diagnosis for this admission?: Yes (9) Heme positive stool Is this a current diagnosis for this admission?: Yes (10) Hyperlipidemia Is this a current diagnosis for this admission?: Yes (11) Hypertension Is this a current diagnosis for this admission?: Yes (12) Iron deficiency anemia due to chronic blood loss Is this a current diagnosis for this admission?: Yes (13) Mediastinal lymphadenopathy Is this a current diagnosis for this admission?: Yes - Additional Information Resuscitation Status: Full Code Discharge Diet: Diabetic Discharge Activity: Activity As Tolerated, No Driving Prescriptions: Aspirin [Aspirin 81 mg Chewable Tablet] 81 mg PO DAILY #1 pkg Home Medications: Albuterol Sulfate [Proair HFA Inhalation Aerosol 8.5 gm MDI] 1 puff IH Q4HP PRN 11/30/17 Apixaban [Eliquis 5 mg Tablet] 5 mg PO Q12 11/30/17 Bumetanide [Bumex 1 mg Tablet] 0.5 mg PO NOON 11/30/17 Bumetanide [Bumex 1 mg Tablet] 1 mg PO QAM 11/30/17 Glimepiride [Amaryl 4 mg Tablet] 4 mg PO BID 11/30/17 Levothyroxine Sodium [Synthroid] 100 mcg PO Q6AM 11/30/17 Losartan Potassium [Cozaar 50 mg Tablet] 50 mg PO DAILY 11/30/17 Metformin HCl [Glucophage 500 mg Tablet] 750 mg PO BID 11/30/17 Metoprolol Tartrate [Lopressor 25 mg Tablet] 37.5 mg PO BID 11/30/17 Rosuvastatin Calcium [Crestor] 40 mg PO QPM 11/30/17 Aspirin [Aspirin 81 mg Chewable Tablet] 81 mg PO DAILY #1 pkg 12/08/17 History of Present Illness History of Present Illness: MALCOM KENNEDY JR is a 67 year old male with multiple comorbidities including A. fib, HTN, HLD, type 2 diabetes mellitus, RIN, morbid obesity, coronary artery disease, history of stroke and seizure, COPD and status post bioprosthetic aortic valve replacement. Patient brought by EMS with chief complaint of shortness of breath, confusion, poor oral intake and an episode of hypoglycemia with blood sugar of 34. Since patient is somewhat confused and sleepy he is not source of history. Brief history is obtained from his who is in the room during my encounter in the ER attending note. Reportedly patient had pneumonia 10 days ago and he was prescribed with Levaquin 750 mg p.o. daily for 10 days by his primary care physician and he took 9 out of 10 of his Levaquin. Reportedly, patient has associated cough productive of yellowish sputum but no fever, chest pain, palpitation or diaphoresis. Further detailed history and review of system could not be obtained. Hospital Course Hospital Course: The patient is a 67 yr old man who was admitted on 11/30/2017 in hypoxic respiratory failure due primarily to COPD exacerbation, but also in part due to exacerbation of diastolic heart failure. He was started on IV antibiotics and was given nebulizer treatments as well as diuresis. It was noted that although he did arrive anemic, his hemoglobin dropped quite a bit after admission. He was FOBT positive. GI was consulted and the patient underwent EGD which demonstrated a healing ulcer as well as gastritis and Malik's esophagus. His anticoagulation was held and he was given proton pump inhibitors. His glucoses were followed with FSBS and SSI. They were well controlled during his stay. The patient's respiratory status improved and he was weaned off of O2. An attempt was made to ambulate the patient off of O2 on 12/05/2017. The patient's oxygen saturations dropped to 84 while walking on room air. A CXR was obtained and demonstrated some remaining pulmonary edema. His BNP was lower from admission, but still quite elevated. His diuretics were increased for another day and a half. His oxygenatino status improved, but he continued to desaturate with ambulation. He was discharged to home on O2. I suspect that this patient is chronically hypoxic. Physical Exam Vital Signs: Temp Pulse Resp BP Pulse Ox 98.3 F 66 20 114/62 98 12/08/17 14:34 12/08/17 14:34 12/08/17 14:34 12/08/17 14:34 12/08/17 14:34 Intake & Output 12/07/17 12/08/17 12/09/17 06:59 06:59 06:59 Intake Total 1486 1318 Output Total 2250 2425 Balance -764 -1107 Weight 151.1 kg 150.3 kg General appearance: PRESENT: no acute distress Neck exam: ABSENT: carotid bruit, JVD, lymphadenopathy, thyromegaly Respiratory exam: PRESENT: clear to auscultation stephanie, other - No increased work of breathing. No wheezes, rales, or rhonchi.. ABSENT: rales, rhonchi, wheezes Cardiovascular exam: PRESENT: RRR. ABSENT: diastolic murmur, rubs, systolic murmur Pulses: PRESENT: other - Diminished distal pulses. GI/Abdominal exam: PRESENT: normal bowel sounds, soft. ABSENT: distended, guarding, mass, organolmegaly, rebound, tenderness Rectal exam: PRESENT: deferred Extremities exam: PRESENT: full ROM. ABSENT: calf tenderness, clubbing, pedal edema Neurological exam: PRESENT: alert, awake, oriented to person, oriented to place , oriented to time, oriented to situation, CN II-XII grossly intact. ABSENT: motor sensory deficit Psychiatric exam: PRESENT: appropriate affect, normal mood. ABSENT: homicidal ideation, suicidal ideation Skin exam: PRESENT: dry, intact, warm. ABSENT: cyanosis, rash Results Laboratory Results: 12/05/17 03:54 12/08/17 06:00 12/08/17 06:00 Sodium 136.9 L Potassium 4.0 Chloride 101 Carbon Dioxide 27 Anion Gap 9 BUN 13 Creatinine 0.67 Est GFR ( Amer) > 60 Est GFR (Non-Af Amer) > 60 Glucose 145 H Calcium 8.3 L 12/05/17 16:29 NT-Pro-B Natriuret Pep 2800 H Impressions: Chest CT 11/30/17 17:16 IMPRESSION: Patchy consolidation is present all lobes, greatest in the right upper and right lower lobes. Multiple enlarged mediastinal nodes. Chest X-Ray 12/05/17 00:00 IMPRESSION: Multicentric pneumonia. Cardiomegaly without ilana CHF. Qualifiers - * PATIENT BEING DISCHARGED WITH ANY OF THE FOLLOWING DIAGNOSIS: No, Heart Failure HF Pt being discharged on ACEI for LVEF less than 40%?: Yes Reason(s) for not prescribing ACEI:: Tx not tolerated HF Pt being discharged on ARBS for LVEF less than 40%?: Yes HF Pt with Afib discharged with Warfarin?: Yes HF Pt discharged on evidence-based Beta Eliel:: Yes
== END 2017-12-08 15:15 | disposition home or self-care (01) | DRG 871 ==
LOC: ER 14:46 → EH 18:06 → 3S 21:23
PROVIDERS: ADMIT Family Medicine; ATTEND Family Medicine
PROC: 3E0F73Z Introduction of Anti-inflammatory into Respiratory Tract, Via Natural or Artificial Opening (ICD-10-PCS; 2017-11-30)
PROC: 5A09557 Assistance with Respiratory Ventilation, Greater than 96 Consecutive Hours, Continuous Positive Airway Pressure (ICD-10-PCS; 2017-12-01)
PROC: 30233N1 Transfusion of Nonautologous Red Blood Cells into Peripheral Vein, Percutaneous Approach (ICD-10-PCS; 2017-12-01)
PROC: 0DB68ZX Excision of Stomach, Via Natural or Artificial Opening Endoscopic, Diagnostic (ICD-10-PCS; principal; 2017-12-04 13:30)
PROC: 0D558ZZ Destruction of Esophagus, Via Natural or Artificial Opening Endoscopic (ICD-10-PCS; 2017-12-04 13:30)
DX: A41.9 Sepsis, unspecified organism (principal); I50.33 Acute on chronic diastolic (congestive) heart failure; J96.21 Acute and chronic respiratory failure with hypoxia; J18.9 Pneumonia, unspecified organism; K29.51 Unspecified chronic gastritis with bleeding; J44.1 Chronic obstructive pulmonary disease with (acute) exacerbation; J44.0 Chronic obstructive pulmonary disease with (acute) lower respiratory infection; Z68.42 Body mass index [BMI] 45.0-49.9, adult; E11.9 Type 2 diabetes mellitus without complications; G47.33 Obstructive sleep apnea (adult) (pediatric); K22.70 Barrett's esophagus without dysplasia; I48.2 Chronic atrial fibrillation; I25.10 Atherosclerotic heart disease of native coronary artery without angina pectoris; E78.00 Pure hypercholesterolemia, unspecified; I11.0 Hypertensive heart disease with heart failure; D50.0 Iron deficiency anemia secondary to blood loss (chronic); E11.649 Type 2 diabetes mellitus with hypoglycemia without coma; R59.1 Generalized enlarged lymph nodes; E66.01 Morbid (severe) obesity due to excess calories; K21.9 Gastro-esophageal reflux disease without esophagitis; K44.9 Diaphragmatic hernia without obstruction or gangrene; R19.5 Other fecal abnormalities; I25.2 Old myocardial infarction; Z79.899 Other long term (current) drug therapy; Z86.73 Personal history of transient ischemic attack (TIA), and cerebral infarction without residual deficits; Z95.2 Presence of prosthetic heart valve; Z87.891 Personal history of nicotine dependence; Z88.8 Allergy status to other drugs, medicaments and biological substances
CPT/HCPCS: 36415; 36430; 43239; 43270; 71045; 71046; 71260; 80048; 80053; 80202; 82272; 82607; 82728; 82746; 82803; 82962; 83036; 83540; 83550; 83605; 83735; 83880; 84484; 85025; 85045; 86850; 86900; 86901; 86920; 87040; 87070; 87205; 88305; 93005; 93010; 94640; 94660; 96374; 99285; J0171; J0692; J0696; J1200; J1610; J1815; J1940; J2250; J2310; J2405; J3010; J3370; J3480; J3490; J7030; J7050; J7060; J7620; P9016; Q0138; S0164

== ENCOUNTER 2017-12-10 12:28 | Emergency (ER) | payer MEDICARE, BC ==
--- NOTE | 2017-12-10 13:08 | ER Document Report ---
ED Medical Screen (RME) - General Chief Complaint: Altered Mental Status Stated Complaint: ALTERED MENTAL STATUS Time Seen by Provider: 12/10/17 13:00 Notes: RAPID MEDICAL EVALUATION DISCLOSURE I have seen this patient as part of a Rapid Medical Evaluation and, if applicable, placed any initially appropriate orders. The patient will be seen and fully evaluated, including a full history and physical exam, by a provider ( in Main ED or Fast Track) when a room becomes available. 67-year-old male brought in by for confusion. He was just discharged from the hospital several days ago and believes he had C. difficile because he has had several episodes of diarrhea. He did receive antibiotics for pneumonia while he was admitted. She reports the confusion in that he thought he was in his master bathroom when in fact he was in a guest bathroom. Patient denies having any pain at this time but he does endorse feeling weak all over and tired. EXAM Minimal diffuse coarse breath sounds RRR No abdominal TTP TRAVEL OUTSIDE OF THE [place] IN LAST 30 DAYS: No - Related Data Allergies/Adverse Reactions: lisinopril Adverse Reaction (Intermediate, Verified 12/10/17 12:30) COUGH, MUCOUS Past Medical History - Social History Chew tobacco use (# tins/day): No Frequency of alcohol use: None Drug Abuse: None - Past Medical History Cardiac Medical History: Reports: Hx Heart Attack - 06/08, Hx Hypercholesterolemia, Hx Hypertension - MEDICATED Pulmonary Medical History: Denies: Hx Asthma Neurological Medical History: Reports: Hx Cerebrovascular Accident - 2011, Hx Seizures - LAST SEIZURE 25 YEARS AGO PER Endocrine Medical History: Reports: Hx Diabetes Mellitus Type 2 Renal/ Medical History: Denies: Hx Peritoneal Dialysis GI Medical History: Reports: Hx Gastroesophageal Reflux Disease, Hx Hiatal Hernia, Hx Ulcer - hx of 2012/. Denies: Hx Hepatitis Psychiatric Medical History: Denies: Hx Depression Infectious Medical History: Denies: Hx Hepatitis Past Surgical History: Reports: Hx Open Heart Surgery, Other - Bioprosthetic aortic valve replacement. Denies: Hx Pacemaker - Immunizations Hx Diphtheria, Pertussis, Tetanus Vaccination: No History of Influenza Vaccine for 02/2017 - 07/2017 Season: Yes Influenza Administration Date for 02/2017 - 07/2017 Season: 02/19/17 Physical Exam - Vital signs Vitals: Temp Pulse Resp BP Pulse Ox 98.4 F 66 20 133/74 H 96 12/10/17 12:42 12/10/17 12:42 12/10/17 12:42 12/10/17 12:42 12/10/17 12:42 Course - Vital Signs Vital signs: Temp Pulse Resp BP Pulse Ox 98.4 F 66 20 133/74 H 96 12/10/17 12:42 12/10/17 12:42 12/10/17 12:42 12/10/17 12:42 12/10/17 12:42 Doctor's Discharge - Discharge Referrals: CHELSEA GIRON MD [Primary Care Provider] - Follow up as needed
[2017-12-10 13:39] LABS: ABSOLUTE EOSINOPHILS # (AUTO) 0.1 10^3/uL (0.0-0.6); ABSOLUTE LYMPHOCYTES (AUTO) 0.7 10^3/uL (0.5-4.7); ABSOLUTE MONOCYTES (AUTO) 0.8 10^3/uL (0.1-1.4); ABSOLUTE NEUT (AUTO) 4.9 10^3/uL (1.7-8.2); BASOPHILS % (AUTO) 0.7 % (0-2); HEMATOCRIT 31.7 % (37.9-51.0); HEMOGLOBIN 10.6 g/dL (13.5-17.0); LYMPHOCYTES % (AUTO) 11.1 % (13-45); MEAN CORPUSCULAR HEMOGLOBIN 28.6 pg (27.0-33.4); MEAN CORPUSCULAR HGB CONC 33.3 g/dL (32.0-36.0); MEAN CORPUSCULAR VOLUME 86 fl (80-97); MONOCYTES % (AUTO) 11.5 % (3-13); PLATELET COUNT 265 10^3/uL (150-450); RED BLOOD COUNT 3.69 10^6/uL (4.35-5.55); RED CELL DISTRIBUTION WIDTH 18.2 % (11.5-14.0); SEGMENTED NEUTROPHILS % (AUTO) 74.7 % (42-78); TOTAL CELLS COUNTED % (AUTO) 100 %; WHITE BLOOD COUNT 6.6 10^3/uL (4.0-10.5)
[2017-12-10 13:53] LABS: APPEARANCE,URINE CLEAR; BILIRUBIN,URINE NEGATIVE (NEGATIVE); COLOR,URINE YELLOW; GLUCOSE, URINE NEGATIVE (NEGATIVE); KETONES,URINE NEGATIVE (NEGATIVE); LEUKOCYTE ESTERASE,URINE NEGATIVE (NEGATIVE); NITRITE,URINE NEGATIVE (NEGATIVE); PROTEIN,URINE 30 mg/dL (NEGATIVE); URINE SPECIFIC GRAVITY 1.006; UROBILINOGEN,URINE NEGATIVE mg/dL (<2.0)
[2017-12-10 14:01] LABS: ALANINE AMINOTRANSFERASE 83 U/L (21-72); ALBUMIN 3.6 g/dL (3.5-5.0); ALKALINE PHOSPHATASE 156 U/L (38-126); ANION GAP 15 (5-19); ASPARTATE AMINO TRANSFERASE 67 U/L (17-59); BILIRUBIN,DIRECT 0.6 mg/dL (0.0-0.4); BILIRUBIN,TOTAL 1.3 mg/dL (0.2-1.3); BLOOD UREA NITROGEN 12 mg/dL (7-20); CALCIUM 8.8 mg/dL (8.4-10.2); CARBON DIOXIDE 26 mmol/L (22-30); CHLORIDE 101 mmol/L (98-107); GLUCOSE 81 mg/dL (75-110); POTASSIUM 3.8 mmol/L (3.6-5.0); SODIUM 141.9 mmol/L (137-145); TOTAL PROTEIN 7.1 g/dL (6.3-8.2)
--- NOTE | 2017-12-10 15:59 | ER Document Report ---
ED General - General Chief Complaint: Altered Mental Status Stated Complaint: ALTERED MENTAL STATUS Time Seen by Provider: 12/10/17 13:00 Mode of Arrival: Ambulatory Information source: Patient, Relative, [facility] Records Notes: 67-year-old male with hypertension, COPD, atrial fibrillation, type 2 diabetes, congestive heart failure, coronary artery disease, iron deficiency anemia presents via private vehicle from home with his who is concerned for C. difficile. Patient's provides the majority of the history. Patient has had diarrhea since the beginning of November. He was admitted to the hospital on November 30 for respiratory failure, COPD exacerbation, pneumonia and was discharged December 08. states that the patient has been confused for approximately 2 weeks. She denies any worsening confusion. She states that the patient has had multiple foul-smelling episodes of diarrhea. Patient has no physical complaints at this time. He is AO 2. TRAVEL OUTSIDE OF THE [place] IN LAST 30 DAYS: No - Related Data Allergies/Adverse Reactions: lisinopril Adverse Reaction (Intermediate, Verified 12/10/17 12:30) COUGH, MUCOUS Past Medical History - General Information source: Patient, Relative, [facility] Records - Social History Smoking Status: Never Smoker Chew tobacco use (# tins/day): No Frequency of alcohol use: None Drug Abuse: None Lives with: Spouse/Significant other Family History: Reviewed & Not Pertinent Patient has suicidal ideation: No Patient has homicidal ideation: No - Past Medical History Cardiac Medical History: Reports: Hx Heart Attack - 06/08, Hx Hypercholesterolemia, Hx Hypertension - MEDICATED Pulmonary Medical History: Denies: Hx Asthma Neurological Medical History: Reports: Hx Cerebrovascular Accident - 2011, Hx Seizures - LAST SEIZURE 25 YEARS AGO PER Endocrine Medical History: Reports: Hx Diabetes Mellitus Type 2 Renal/ Medical History: Denies: Hx Peritoneal Dialysis GI Medical History: Reports: Hx Gastroesophageal Reflux Disease, Hx Hiatal Hernia, Hx Ulcer - hx of 2012/RESOLVED. Denies: Hx Hepatitis Psychiatric Medical History: Denies: Hx Depression Infectious Medical History: Denies: Hx Hepatitis Past Surgical History: Reports: Hx Open Heart Surgery, Other - Bioprosthetic aortic valve replacement. Denies: Hx Pacemaker - Immunizations Hx Diphtheria, Pertussis, Tetanus Vaccination: No Review of Systems - Review of Systems Notes: REVIEW OF SYSTEMS: CONSTITUTIONAL : Denies fever, chills, or sweats. Denies recent illness. Denies weight loss, recent hospitalizations. EENT: Denies visual changes, eye pain. Denies nasal or sinus congestion or discharge. Denies sore throat, oral lesions, difficulty swallowing. CARDIOVASCULAR: Denies chest pain. Denies palpitations. Denies lower extremity edema. RESPIRATORY: Denies cough, cold, or chest congestion. Denies shortness of breath, wheezing. GASTROINTESTINAL: Denies abdominal pain or distention. Denies nausea, vomiting. Denies blood in vomitus, stools, or per rectum. Denies black, tarry stools. Denies constipation. GENITOURINARY: Denies difficulty urinating, painful urination, frequency, blood in urine, or vaginal discharge. MUSCULOSKELETAL: Denies back or neck pain or stiffness. Denies joint pain or swelling. SKIN: Denies rash, lesions or sores. HEMATOLOGIC : Denies easy bruising or bleeding. LYMPHATIC: Denies swollen glands. NEUROLOGICAL: Denies passing out or loss of consciousness. Denies dizziness or lightheadedness. Denies headache. Denies weakness or paralysis. Denies problems difficulty with ambulation, slurred speech. Denies sensory loss, numbness, or tingling. Denies seizures. PSYCHIATRIC: Denies anxiety or stress. Denies depression, suicidal ideation, or homicidal ideation. Denies visual or auditory hallucinations. Physical Exam - Vital signs Vitals: Temp Pulse Resp BP Pulse Ox 98.4 F 66 20 133/74 H 96 12/10/17 12:42 12/10/17 12:42 12/10/17 12:42 12/10/17 12:42 12/10/17 12:42 Interpretation: No: Hypoxic, Febrile - Notes Notes: PHYSICAL EXAMINATION: GENERAL: Well-appearing, well-nourished and in no acute distress. HEAD: Atraumatic, normocephalic. EYES: Pupils equal round and reactive to light, extraocular movements intact, sclera anicteric, conjunctiva are normal. ENT: Nares patent, oropharynx clear without exudates. Moist mucous membranes. NECK: Normal range of motion, supple without lymphadenopathy LUNGS: Breath sounds clear to auscultation bilaterally and equal. No wheezes rales or rhonchi. HEART: Regular rate and rhythm without murmurs ABDOMEN: Soft, nontender, nondistended abdomen. No guarding, no rebound. No masses appreciated. Musculoskeletal: Normal range of motion, no pitting or edema. No cyanosis. NEUROLOGICAL: Cranial nerves grossly intact. Normal speech, normal gait. Normal sensory, motor exams. Alert and oriented 2 PSYCH: Normal mood, normal affect. SKIN: Warm, Dry, normal turgor, no rashes or lesions noted. Course - Re-evaluation Re-evalutation: Laboratory 12/10/17 12/10/17 12/10/17 13:15 13:15 13:15 WBC 6.6 RBC 3.69 L Hgb 10.6 L Hct 31.7 L MCV 86 MCH 28.6 MCHC 33.3 RDW 18.2 H Plt Count 265 Seg Neutrophils % 74.7 Lymphocytes % 11.1 L Monocytes % 11.5 Eosinophils % 2.0 Basophils % 0.7 Absolute Neutrophils 4.9 Absolute Lymphocytes 0.7 Absolute Monocytes 0.8 Absolute Eosinophils 0.1 Absolute Basophils 0.0 Sodium 141.9 Potassium 3.8 Chloride 101 Carbon Dioxide 26 Anion Gap 15 BUN 12 Creatinine 0.66 Est GFR ( Amer) > 60 Est GFR (Non-Af Amer) > 60 Glucose 81 Calcium 8.8 Total Bilirubin 1.3 Direct Bilirubin 0.6 H Neonat Total Bilirubin Not Reportable Neonat Direct Bilirubin Not Reportable Neonat Indirect Bili Not Reportable AST 67 H ALT 83 H Alkaline Phosphatase 156 H Total Protein 7.1 Albumin 3.6 Lipase 202.0 Urine Color YELLOW Urine Appearance CLEAR Urine pH 6.0 Ur Specific [place] 1.006 Urine Protein 30 H Urine Glucose (UA) NEGATIVE Urine Ketones NEGATIVE Urine Blood SMALL H Urine Nitrite NEGATIVE Urine Bilirubin NEGATIVE Urine Urobilinogen NEGATIVE Ur Leukocyte Esterase NEGATIVE Urine WBC (Auto) 0 Urine RBC (Auto) 0 U Hyaline Cast (Auto) 3 Urine Bacteria (Auto) TRACE Squamous Epi Cells Auto <1 Urine Mucus (Auto) RARE Urine Ascorbic Acid NEGATIVE 12/10/17 23:53 67-year-old male with hypertension, COPD, atrial fibrillation, type 2 diabetes, congestive heart failure, coronary artery disease, iron deficiency anemia presents via private vehicle from home with his who is concerned for C. difficile. Patient's provides the majority of the history. Patient has had diarrhea since the beginning of November. He was admitted to the hospital on November 30 for respiratory failure, COPD exacerbation, pneumonia and was discharged December 08. states that the patient has been confused for approximately 2 weeks. She denies any worsening confusion. She states that the patient has had multiple foul-smelling episodes of diarrhea. Patient has no physical complaints at this time. He is AO 2. Patient was seen by myself upon arrival. Vital signs were reviewed. Patient is afebrile, hypertensive but not hypoxic. Patient does not appear toxic or dehydrated. They are in no acute distress. Previous medical records and nursing notes reviewed. CBC is without leukocytosis, does show mild anemia. CMP shows no electrolyte abnormalities but does show mild elevation in the patient's liver enzymes which appears to be his baseline. refuses all imaging including head CT that I wanted to obtain because of her complaint of the patient's confusion. She requests several times to be discharged and is requesting outpatient laboratory testing for C. difficile. I do not believe the patient has C. difficile at this time but outpatient orders were placed. Patient provided the opportunity to ask questions, and express concerns. Discharge instructions discussed. Patient is agreeable with discharge home. Return indications explained and discussed with the patient who displays understanding. Patient encouraged to return to the emergency department immediately with any concerns. 12/10/17 23:53 - Vital Signs Vital signs: Temp Pulse Resp BP Pulse Ox 98.9 F 80 16 147/82 H 97 12/10/17 17:22 12/10/17 17:22 12/10/17 17:22 12/10/17 17:22 12/10/17 17:22 - Laboratory Result Diagrams: 12/10/17 13:15 12/10/17 13:15 Laboratory results interpreted by me: 12/10/17 12/10/17 12/10/17 13:15 13:15 13:15 RBC 3.69 L Hgb 10.6 L Hct 31.7 L RDW 18.2 H Lymphocytes % 11.1 L Direct Bilirubin 0.6 H AST 67 H ALT 83 H Alkaline Phosphatase 156 H Urine Protein 30 H Urine Blood SMALL H Discharge - Discharge Clinical Impression: Diarrhea Qualifiers: Diarrhea type: unspecified type Qualified Code(s): R19.7 - Diarrhea, unspecified Condition: Fair Disposition: HOME, SELF-CARE Instructions: Diarrhea, Nonspecific ([facility]) Forms: Follow-Up Laboratory Testing Referrals: CHELSEA GIRON MD [Primary Care Provider] - Follow up as needed
[2017-12-10 17:26] VITALS: BP 147/82
== END 2017-12-10 17:44 | disposition home or self-care (01) ==
LOC: ER 12:28
DX: R19.7 Diarrhea, unspecified (principal); R41.0 Disorientation, unspecified; D64.9 Anemia, unspecified; R74.8 Abnormal levels of other serum enzymes; J44.9 Chronic obstructive pulmonary disease, unspecified; I10 Essential (primary) hypertension; E11.9 Type 2 diabetes mellitus without complications; I25.10 Atherosclerotic heart disease of native coronary artery without angina pectoris; I25.2 Old myocardial infarction; Z87.01 Personal history of pneumonia (recurrent); Z86.73 Personal history of transient ischemic attack (TIA), and cerebral infarction without residual deficits; Z95.2 Presence of prosthetic heart valve
CPT/HCPCS: 36415; 80053; 81001; 83690; 85025; 87040; 87077; 87186; 99285

== ENCOUNTER 2017-12-12 02:58 | Emergency (ER) | payer MEDICARE, BC ==
--- NOTE | 2017-12-12 03:34 | ER Document Report ---
ED General <GELACIO BIGGS - Last Filed: 12/12/17 10:35> - General TRAVEL OUTSIDE OF THE [place] IN LAST 30 DAYS: No <WAI LEON - Last Filed: 12/12/17 19:24> - General Chief Complaint: Low Blood Sugar Stated Complaint: BLOOD SUGAR PROBLEM Time Seen by Provider: 12/12/17 03:20 Notes: Patient is a 67-year-old male who comes emergency department for chief complaint of weakness, low blood sugar, and an unsteady gait. Patient was recently diagnosed with pneumonia, completed treatment for this, has had poor appetite and reduced eating, he is normally on glimepiride and metformin although this was held today by because of his blood sugars being low intermittently over the past few days. Patient denies headache, chest pain, difficulty breathing, although he does report feeling weak. Past medical history of atrial fibrillation (on xarelto), CVA with chronic left-sided weakness, type 2 diabetes, hypertension. (WAI LEON) - Related Data Allergies/Adverse Reactions: lisinopril Adverse Reaction (Intermediate, Verified 12/12/17 08:38) COUGH, MUCOUS Past Medical History - General Information source: Patient, Relative - - Social History Smoking Status: Never Smoker Frequency of alcohol use: None Drug Abuse: None Lives with: Family Family History: Reviewed & Not Pertinent - Past Medical History Cardiac Medical History: Reports: Hx Atrial Fibrillation, Hx Heart Attack - , Hx Hypercholesterolemia, Hx Hypertension - MEDICATED Pulmonary Medical History: Denies: Hx Asthma Neurological Medical History: Reports: Hx Cerebrovascular Accident - 2011, Hx Seizures - LAST SEIZURE 25 YEARS AGO PER Endocrine Medical History: Reports: Hx Diabetes Mellitus Type 2 Renal/ Medical History: Denies: Hx Peritoneal Dialysis GI Medical History: Reports: Hx Gastroesophageal Reflux Disease, Hx Hiatal Hernia, Hx Ulcer - hx of 2012/RESOLVED. Denies: Hx Hepatitis Psychiatric Medical History: Denies: Hx Depression Infectious Medical History: Denies: Hx Hepatitis Past Surgical History: Reports: Hx Open Heart Surgery, Other - Bioprosthetic aortic valve replacement. Denies: Hx Pacemaker - Immunizations Hx Diphtheria, Pertussis, Tetanus Vaccination: No <WAI LEON - Last Filed: 12/12/17 19:24> Review of Systems - Review of Systems Constitutional: See HPI EENT: No symptoms reported Cardiovascular: No symptoms reported Respiratory: See HPI Gastrointestinal: No symptoms reported Genitourinary: No symptoms reported Male Genitourinary: No symptoms reported Musculoskeletal: No symptoms reported Skin: No symptoms reported Hematologic/Lymphatic: No symptoms reported Neurological/Psychological: See HPI <WAI LEON - Last Filed: 12/12/17 19:24> Physical Exam - General General appearance: Appears well In distress: None - HEENT Head: Normocephalic, Atraumatic Eyes: Normal Conjunctiva: Normal Extraocular movements intact: Yes Eyelashes: Normal Pupils: PERRL Sinus: Normal Nasal: Normal Mouth/Lips: Normal Mucous membranes: Normal Pharynx: Normal Neck: Normal - Respiratory Respiratory status: No respiratory distress. No: Respiratory distress, Labored Breath sounds: Nonproductive cough - occassional congested cough with a few scattered rhonchi. No: Rales, Stridor, Wheezing - Cardiovascular Rhythm: Irregularly irregular. No: Tachycardia, Bradycardia Murmur: No Normal capillary refill: Yes - Abdominal Inspection: Normal Tenderness: Nontender. No: Tender, Guarding - Back Back: Normal, Nontender. No: Tender - Extremities General upper extremity: Normal inspection, Nontender, Normal ROM, Normal strength General lower extremity: Normal inspection, Nontender, Edema - Bilateral lower extremity edema with 1+ pitting edema, Normal ROM, Normal strength - Neurological Cognition: Normal. No: Confused, Inattentive Orientation: No: Disoriented to person, Disoriented to place, Disoriented to time, Disoriented to events [place] Coma Scale Eye Opening: Spontaneous [place] Coma Scale Verbal: Oriented [place] Coma Scale Motor: Obeys Commands [place] Coma Scale Total: 15 Speech: Dysarthria - reportedly chronic Cranial nerves: No: Facial palsy, Forehead sparing, Gaze palsy, Sensory deficit , Tongue deviation Cerebellar coordination: Gait ataxia - difficult to get patient to stand or walk at all Additional motor exam normals: Equal lead oracle developer - Skin Skin Temperature: Warm Skin Moisture: Dry Skin Color: Normal <WAI LEON - Last Filed: 12/12/17 19:24> - Vital signs Vitals: Resp Pulse Ox 16 97 12/12/17 06:18 12/12/17 06:18 Course - Laboratory Result Diagrams: 12/12/17 03:15 12/12/17 03:15 <GELACIO BIGGS - Last Filed: 12/12/17 10:35> - Laboratory Result Diagrams: 12/12/17 03:15 12/12/17 03:15 <WAI LEON - Last Filed: 12/12/17 19:24> - Re-evaluation Re-evalutation: 12/12/17 08:[address] Gerard spoke with Dr. Boateng regarding CT scan report and concern about possible mass versus bleed. Advises ordering an MRI of the brain. 12/12/17 10:03 Call placed to transfer center to update them regarding MRI report results. Transfer center staff advises consulting with the charge nurse on the in NSICU. Spoke with Miguel RN who will relay the message regarding findings on patient's MRI report. Dr. Boateng updating family regarding MRI report results. Dr Boateng advises decadron 10 mg iv now. 12/12/17 10:11 12/12/17 10:35 pt sleeping, BP trending up. Pt denies any pain, RN advised of BP and need for titration of cardene drip. (GELACIO BIGGS) Patient complaining of weakness, however no other complaints on my examination. Reported ataxia, he is large, difficult to get him up and stand, he is on Xarelto, CAT scan of the head will be performed. CBC shows mild normocytic anemia, no leukocytosis, chemistry shows unchanged bilirubin elevation, otherwise unremarkable. Troponin indeterminate. Chest x-ray showing pneumonia, multifocal. Recent pneumonia within this month and was on home medications, started on cefepime. Culture placed. I reviewed CAT scan of the head, appears to have acute intracranial hemorrhage. Patient reevaluated bedside, no change from prior. He does not have any visual deficits, only complaint is unsteadiness. Cooperative and alert at this time. Radiologist called, confirms right-sided occipital intracranial hemorrhage. Patient has a history of seizures, off seizure medication the past 2 years. Given [facility], will place call to neurosurgeon, discussed with and patient, they prefer [place] transfer. Patient discussed with Dr. Bill. 12/12/17 05:[address] Paris, recommends Xarelto reversal agent or vitamin K, systolic blood pressure to be maintained at less than 140. Dr. Castro accepting physician. Patient accepted for transfer. Requests a CTA to be performed. No Xarelto reversal agents, giving vitamin K, FFP, placing on Cardene drip. 12/12/17 05:56 [facility] confirmed that they cannot fly due to inclement weather. Will attempt to set up ground transport as soon as possible. We do have an accepting room for the patient. Updated patient and . 12/12/17 07:10 Patient has remained alert and oriented on all 4 reexaminations. Introduced to Mitchell SANDERS at bedside. (WAI LEON) - Vital Signs Vital signs: Temp Pulse Resp BP Pulse Ox 98.3 F 86 22 H 152/77 H 98 12/12/17 11:26 12/12/17 08:10 12/12/17 11:26 12/12/17 11:26 12/12/17 11:26 - Laboratory Laboratory results interpreted by me: 12/12/17 12/12/17 12/12/17 03:15 03:15 03:15 RBC 3.71 L Hgb 10.6 L Hct 31.6 L RDW 17.6 H Lymphocytes % 12.1 L PT 18.6 H APTT 38.8 H Total Bilirubin 1.4 H Direct Bilirubin 0.7 H AST 113 H ALT 99 H Alkaline Phosphatase 152 H Urine Protein Urine Bilirubin Urine Urobilinogen 12/12/17 11:00 RBC Hgb Hct RDW Lymphocytes % PT APTT Total Bilirubin Direct Bilirubin AST ALT Alkaline Phosphatase Urine Protein >=500 H Urine Bilirubin SMALL H Urine Urobilinogen 4.0 H Critical Care Note <GELACIO BIGGS - Last Filed: 12/12/17 10:35> - Critical Care Note Total time excluding time spent on procedures (mins): 60 - acute intracranial hemorrhage, pneumonia <WAI LEON - Last Filed: 12/12/17 19:24> - Critical Care Note Comments: Please allow 60 minutes of critical care time for management of critically ill patient with acute intracranial hemorrhage, pneumonia, hypertension. Interventions including FFP, vitamin K, Cardene drip, antiepileptic, antibiotics , multiple re-evaluations, consultation with neurosurgery and transfer to tertiary care center. (WAI LEON) Discharge <GELACIO BIGGS - Last Filed: 12/12/17 10:35> <WAI LEON - Last Filed: 12/12/17 19:24> - Discharge Clinical Impression: Acute intracranial hemorrhage Pneumonia Qualifiers: Pneumonia type: due to unspecified organism Laterality: bilateral Lung location : unspecified part of lung Qualified Code(s): J18.9 - Pneumonia, unspecified organism Condition: Critical Disposition: [facility] Referrals: CHELSEA GIRON MD [Primary Care Provider] - Follow up as needed
[2017-12-12 03:43] LABS: ABSOLUTE BASOPHILS # (AUTO) 0.1 10^3/uL (0.0-0.2); ABSOLUTE EOSINOPHILS # (AUTO) 0.2 10^3/uL (0.0-0.6); ABSOLUTE LYMPHOCYTES (AUTO) 0.9 10^3/uL (0.5-4.7); ABSOLUTE MONOCYTES (AUTO) 0.7 10^3/uL (0.1-1.4); ABSOLUTE NEUT (AUTO) 5.8 10^3/uL (1.7-8.2); BASOPHILS % (AUTO) 0.8 % (0-2); EOSINOPHILS % (AUTO) 3.2 % (0-6); HEMATOCRIT 31.6 % (37.9-51.0); HEMOGLOBIN 10.6 g/dL (13.5-17.0); LYMPHOCYTES % (AUTO) 12.1 % (13-45); MEAN CORPUSCULAR HEMOGLOBIN 28.6 pg (27.0-33.4); MEAN CORPUSCULAR HGB CONC 33.5 g/dL (32.0-36.0); MEAN CORPUSCULAR VOLUME 85 fl (80-97); MONOCYTES % (AUTO) 9.5 % (3-13); PLATELET COUNT 238 10^3/uL (150-450); RED BLOOD COUNT 3.71 10^6/uL (4.35-5.55); RED CELL DISTRIBUTION WIDTH 17.6 % (11.5-14.0); SEGMENTED NEUTROPHILS % (AUTO) 74.4 % (42-78); TOTAL CELLS COUNTED % (AUTO) 100 %; WHITE BLOOD COUNT 7.8 10^3/uL (4.0-10.5)
[2017-12-12 03:46] LABS: ALANINE AMINOTRANSFERASE 99 U/L (21-72); ALBUMIN 3.9 g/dL (3.5-5.0); ALKALINE PHOSPHATASE 152 U/L (38-126); ANION GAP 10 (5-19); ASPARTATE AMINO TRANSFERASE 113 U/L (17-59); BILIRUBIN,DIRECT 0.7 mg/dL (0.0-0.4); BILIRUBIN,TOTAL 1.4 mg/dL (0.2-1.3); BLOOD UREA NITROGEN 13 mg/dL (7-20); CARBON DIOXIDE 29 mmol/L (22-30); CHLORIDE 100 mmol/L (98-107); GLUCOSE 75 mg/dL (75-110); POTASSIUM 3.9 mmol/L (3.6-5.0); SODIUM 138.7 mmol/L (137-145); TOTAL PROTEIN 7.7 g/dL (6.3-8.2)
--- NOTE | 2017-12-12 04:25 | RADIOLOGY REPORT (SQ) ---
EXAM DESCRIPTION: XR CHEST 1 VIEW COMPLETED DATE/TME: 12/12/2017 03:32 CLINICAL HISTORY: 67 years, Male, weakness, recent pneumonia COMPARISON: 12/05/2017 NUMBER OF VIEWS: One TECHNIQUE: AP view of the chest LIMITATIONS: None. FINDINGS: Again noted is a right upper lobe airspace opacity with bibasilar airspace opacities. The heart is enlarged. There is no pneumothorax. Small pleural effusions may present. Median sternotomy wires are noted. IMPRESSION: Multifocal pneumonia 2010 [facility] [employer]- All Rights Reserved
[2017-12-12] MEDS ORDERED: CEFEPIME 2 GM/D5W RTU 2 GM/50 ML RTUPB IV ONE (04:50)
[2017-12-12 04:53] LABS: INTERNATIONAL RATION (INR) 1.47; PROTHROMBIN TIME 18.6 SEC (11.4-15.4)
[2017-12-12 04:54] LABS: PARTIAL THROMBOPLASTIN TIME 38.8 SEC (23.5-35.8)
--- NOTE | 2017-12-12 04:58 | RADIOLOGY REPORT (SQ) ---
EXAM DESCRIPTION: CT HEAD WITHOUT IV CONTRAST COMPLETED DATE/TME: 12/12/2017 03:32 CLINICAL HISTORY: 67 years, Male, gait instability; on xarelto COMPARISON: None. TECHNIQUE: Axial CT images of the brain were obtained without contrast. DLP 1030 Images stored on PACS. All CT scanners at this facility use dose modulation, iterative reconstruction, and/or weight based dosing when appropriate to reduce radiation dose to as low as reasonably achievable (ALARA). [facility]: Dose Right [facility]: CareDose [facility]: Dose Right [facility]: Teradose 4D [facility]: [employer] LIMITATIONS: None. FINDINGS: There is a 4.2 x 2.8 cm hematoma within the right occipital lobe with surrounding vasogenic edema. There is mild effacement of the right lateral ventricle. There is no midline shift or herniation. There is diffuse cerebral atrophy with moderate periventricular and deep white matter chronic microvascular changes. The paranasal sinuses and mastoid air cells are clear. There is no acute fracture. IMPRESSION: Hematoma within the right parietal lobe with surrounding vasogenic edema with mild effacement of the right lateral ventricle. No midline shift or herniation. The above critical findings were discussed with and acknowledged by Gustabo MADDOX at 3:56 AM on 12/12/2017 TECHNICAL DOCUMENTATION: Quality ID # [id number]: Final reports with documentation of one or more dose reduction techniques (e.g., Automated exposure control, adjustment of the mA and/or kV according to patient size, use of iterative reconstruction technique) 2010 [employer]- All Rights Reserved
[2017-12-12] MEDS ORDERED: LEVETIRACETAM 1000 MG/NACL-ISO 1,000 MG/100 ML RTUPB IV ONE (05:02)
[2017-12-12] MEDS ORDERED: PHYTONADIONE INJ 10 MG/1 ML AMPULE SUBCUT ONE (05:24)
[2017-12-12] MEDS ORDERED: NORMAL SALINE 250 ML IV PRN ×2 (05:24)
[2017-12-12] MEDS ORDERED: NICARDIPINE HCL RTU, ISO-OS 20 MG/200 ML RTUINJ IV PRN (05:28)
[2017-12-12] MEDS ORDERED: FENTANYL CITRATE INJ/PF 100 MCG/2 ML AMPUL IV ONE ×2 (06:15→09:31)
--- NOTE | 2017-12-12 09:22 | EKG REPORT ---
SEVERITY:- ABNORMAL ECG - ATRIAL FIBRILLATION ABNORMAL T, CONSIDER ISCHEMIA, LATERAL LEADS : Confirmed by: Kiesha Sahu 12-Dec-2017 09:22:01
--- NOTE | 2017-12-12 09:37 | RADIOLOGY REPORT (SQ) ---
EXAM DESCRIPTION: MRI HEAD COMBO COMPLETED DATE/TIME: 12/12/2017 9:18 am REASON FOR STUDY: Brain mass COMPARISON: CT brain 12/12/2017 TECHNIQUE: Multiplanar imaging includes noncontrasted T1, T2, FLAIR, diffusion with ADC map and post gadolinium contrast T1 sequences. Images stored on PACS. CONTRAST TYPE AND DOSE: 20 mL Prohance. RENAL FUNCTION: GFR > 60. LIMITATIONS: None. FINDINGS: ANATOMY: No congenital anomalies. Normal vascular flow voids. Pituitary fossa normal. CSF SPACES: No hemorrhage. CEREBRUM: In the right occipital white matter, a 5 cm AP x 3.2 cm transverse by 4 cm craniocaudad com plex hemorrhagic mass is present. The anterior half of the mass is cystic, posterior half is more so lid. There is a peripheral rim of hemosiderin staining and halo of contrast enhancement. Posterior portion of the lesion exhibits gadolinium enhancement. This most likely represents tumor with superi mposed acute hemorrhage. There is local mass effect with sulcal effacement and effacement of the occipital horn right lateral ventricle. Extensive surrounding increased FLAIR/ T2 signal throughout the right temporal lobe and p arietal/ posterior frontal region from vasogenic edema. Gliosis is also possible. Minimal less than 5 mm right to left subfalcine shift is present. POSTERIOR FOSSA: No signal alteration. No hemorrhage. No edema, masses, or mass effect. Internal arie tory canals, cerebellopontine angles, mastoids normal. No enhancing lesions. No abnormal enhancement post contrast. DIFFUSION IMAGING: Negative for acute or subacute infarction. ORBITS: No masses. Globes post cataract surgery. PARANASAL SINUSES: No fluid levels. Mucosa normal. OTHER: No other significant finding. 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 There is local mass effect and minimal right to left subfalcine shift. EVIDENCE OF ACUTE STROKE: NO. TECHNICAL DOCUMENTATION: JOB ID: [id number] [employer]- All Rights Reserved Reading location - IP/workstation name: [email or web address]
[2017-12-12] MEDS ORDERED: DEXAMETHASONE SOD PHOS INJ 10 MG/1 ML VIAL IV ONE (09:58)
[2017-12-12 11:18] LABS: APPEARANCE,URINE CLEAR; BILIRUBIN,URINE SMALL (NEGATIVE); COLOR,URINE AMBER; GLUCOSE, URINE NEGATIVE (NEGATIVE); KETONES,URINE NEGATIVE (NEGATIVE); LEUKOCYTE ESTERASE,URINE NEGATIVE (NEGATIVE); NITRITE,URINE NEGATIVE (NEGATIVE); PROTEIN,URINE >=500 mg/dL (NEGATIVE); URINE SPECIFIC GRAVITY 1.023
--- NOTE | 2017-12-12 11:29 | ER Document Report ---
Doctor's Note Notes: 12/12/17 11:28 Transport is here for the patient. His vital signs are stable. He is stable for transport. I have reviewed his MRI findings with the patient's spouse and answered the questions that I could about what the mass probably was, and how it might be managed when he gets to [facility].
[2017-12-12 11:32] VITALS: BP 152/77
== END 2017-12-12 11:46 | disposition short-term general hospital (02) ==
LOC: ER 02:58
DX: I62.9 Nontraumatic intracranial hemorrhage, unspecified (principal); J18.9 Pneumonia, unspecified organism; I10 Essential (primary) hypertension; I48.91 Unspecified atrial fibrillation; E11.9 Type 2 diabetes mellitus without complications; E78.00 Pure hypercholesterolemia, unspecified; Z86.73 Personal history of transient ischemic attack (TIA), and cerebral infarction without residual deficits; I25.2 Old myocardial infarction; Z79.84 Long term (current) use of oral hypoglycemic drugs; Z79.02 Long term (current) use of antithrombotics/antiplatelets
CPT/HCPCS: 93005; 96376; 99291; 96372; 96375; 96365; 96367; 86900; 86901; 36415; 87040; 36430; 86850; 82962; 85025; 85610; 85730; 80053; 81001; 84484; 70553; 71045; 70450; 93010; A9576; P9017; J3010; J3430; J3490; J1100; J1953; J0692

== ENCOUNTER 2018-02-10 21:33 | Emergency (ER) | payer MEDICARE, BC ==
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
[2018-02-10 23:47] LABS: ABSOLUTE BASOPHILS # (AUTO) 0.1 10^3/uL (0.0-0.2); ABSOLUTE EOSINOPHILS # (AUTO) 0.3 10^3/uL (0.0-0.6); ABSOLUTE LYMPHOCYTES (AUTO) 1.8 10^3/uL (0.5-4.7); ABSOLUTE MONOCYTES (AUTO) 1.1 10^3/uL (0.1-1.4); ABSOLUTE NEUT (AUTO) 8.2 10^3/uL (1.7-8.2); BASOPHILS % (AUTO) 1.2 % (0-2); EOSINOPHILS % (AUTO) 2.4 % (0-6); HEMOGLOBIN 13.1 g/dL (13.5-17.0); LYMPHOCYTES % (AUTO) 15.4 % (13-45); MEAN CORPUSCULAR HEMOGLOBIN 28.5 pg (27.0-33.4); MEAN CORPUSCULAR HGB CONC 33.6 g/dL (32.0-36.0); MEAN CORPUSCULAR VOLUME 85 fl (80-97); MONOCYTES % (AUTO) 9.5 % (3-13); PLATELET COUNT 246 10^3/uL (150-450); RED CELL DISTRIBUTION WIDTH 18.8 % (11.5-14.0); SEGMENTED NEUTROPHILS % (AUTO) 71.5 % (42-78); TOTAL CELLS COUNTED % (AUTO) 100 %; WHITE BLOOD COUNT 11.5 10^3/uL (4.0-10.5)
[2018-02-11 00:09] LABS: ALANINE AMINOTRANSFERASE 45 U/L (21-72); ALBUMIN 3.5 g/dL (3.5-5.0); ALKALINE PHOSPHATASE 115 U/L (38-126); ANION GAP 10 (5-19); ASPARTATE AMINO TRANSFERASE 57 U/L (17-59); BILIRUBIN,DIRECT 0.7 mg/dL (0.0-0.4); BILIRUBIN,TOTAL 1.2 mg/dL (0.2-1.3); BLOOD UREA NITROGEN 11 mg/dL (7-20); CALCIUM 9.3 mg/dL (8.4-10.2); CARBON DIOXIDE 33 mmol/L (22-30); CHLORIDE 95 mmol/L (98-107); GLUCOSE 116 mg/dL (75-110); SODIUM 137.9 mmol/L (137-145); TOTAL PROTEIN 7.4 g/dL (6.3-8.2)
[2018-02-11 00:29] LABS: POTASSIUM 2.7 mmol/L (3.6-5.0)
[2018-02-11] MEDS ORDERED: POTASSIUM CHLORIDE 10 MEQ CAPSULE.ER PO ONE (00:43)
[2018-02-11] MEDS ORDERED: POTASSI CL 20 MEQ/50 ML RIDER 20 MEQ/50 ML RTUPB IV ONE (00:43)
[2018-02-11 05:16] VITALS: BP 117/75
--- NOTE | 2018-02-11 07:47 | RADIOLOGY REPORT (SQ) ---
Chest single view on 02/11/2018 at 12:16 AM CLINICAL INDICATION: Weakness COMPARISON: 12/12/2017 FINDINGS: The patient is status post median sternotomy. Cardiomegaly is noted. There is moderate elevation of the right hemidiaphragm. There is mild basilar atelectasis or scarring. Multiple overlying wires are noted. Lungs are otherwise clear. Hilar and mediastinal contours are within normal limits. IMPRESSION: Cardiomegaly with no acute pulmonary disease.
--- NOTE | 2018-02-11 07:47 | RADIOLOGY REPORT (SQ) ---
CT head without contrast on 02/11/2018 at 12:05 AM CLINICAL INDICATION: Weakness, fell and landed and hit back of head, history of brain mass TECHNIQUE: Multiple axial images are obtained throughout the head without the administration of contrast. This exam was performed according to our departmental dose-optimization program, which includes automated exposure control, adjustment of the mA and/or kV according to patient size and/or use of iterative reconstruction technique. Total DLP is 1111.6 mGy*cm. COMPARISON: CT head from 12/12/2017 and MRI head from 12/12/2017 FINDINGS: The patient is status post interval right occipital craniotomy. 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 There has been improvement in vasogenic edema with residual vasogenic edema noted in the right occipital lobe. There is no hydrocephalus. There is mild generalized cerebral atrophy. There is mild low-density in the periventricular white matter consistent with mild chronic small vessel ischemic changes. There is no CT evidence of acute infarct. There is no hemorrhage. There are no abnormal extra-axial fluid collections. There is no mass effect or midline shift. If there is concern for residual tumor in the right occipital lobe, MRI with and without contrast could better evaluate. No acute bony abnormality is noted. IMPRESSION: Interval postsurgical changes in the right occipital lobe with some residual vasogenic edema but without definite residual mass identified by unenhanced CT. If there is clinical concern for residual tumor, MRI with and without contrast could better evaluate. Otherwise no acute intracranial abnormality.
--- NOTE | 2018-02-12 15:33 | EKG REPORT ---
SEVERITY:- ABNORMAL ECG - ATRIAL FIBRILLATION, V-RATE 86-124 BORDERLINE T ABNORMALITIES, INFERIOR LEADS BORDERLINE PROLONGED QT INTERVAL : Confirmed by: Yazmin Mendes MD 12-Feb-2018 15:32:52
== END 2018-02-11 05:16 | disposition home or self-care (01) ==
LOC: ER 21:33
DX: E87.6 Hypokalemia (principal); R19.5 Other fecal abnormalities; R53.1 Weakness; I48.91 Unspecified atrial fibrillation; E78.00 Pure hypercholesterolemia, unspecified; I10 Essential (primary) hypertension; E11.9 Type 2 diabetes mellitus without complications; K21.9 Gastro-esophageal reflux disease without esophagitis; K44.9 Diaphragmatic hernia without obstruction or gangrene; I25.2 Old myocardial infarction; Z95.2 Presence of prosthetic heart valve; Z88.8 Allergy status to other drugs, medicaments and biological substances; Z87.891 Personal history of nicotine dependence
CPT/HCPCS: 93005; 99285; 96365; 36415; 83735; 85025; 82272; 80053; 84484; 71045; 70450; 93010; J3480; A9270

== ENCOUNTER → 2018-02-20 | Outpatient (CLI) | payer MEDICARE, BC | LOC: OD 14:59 | PROVIDERS: ATTEND Family Medicine | DX: E87.6 Hypokalemia (principal); Z79.899 Other long term (current) drug therapy | CPT/HCPCS: 36415; 84132 ==

== ENCOUNTER 2018-03-08 22:05 | Emergency (ER) | payer MEDICARE, BC ==
[2018-03-08 22:40] VITALS: BP 122/86
--- NOTE | 2018-03-08 23:06 | ER Document Report ---
ED Dizziness/Weakness - General Chief Complaint: Weakness Stated Complaint: WEAKNESS Time Seen by Provider: 03/08/18 22:29 Mode of Arrival: Medic Information source: Patient, Relative - Spouse Notes: Patient is a 67-year-old male who presents today with chief complaint of progressive weakness. Patient reports he has had weakness since he was discharged from [facility] on 01/01/18 from his right-sided craniotomy. Patient reports that his was told that he would have a slow 3-6-month recovery time but he states that he has been feeling more weak lately and is going in the opposite direction of what they thought he would be. Patient reports he is unable to bear weight at this point and cannot stand. Patient was seen by his neurosurgeon today at [facility] and patient reports they think he has a pinched nerve in his neck. They ordered an MRI which was scheduled for tomorrow at noon. Patient's decided to cancel the appointment for the MRI tomorrow and come here to the emergency department instead. Patient has no new or acute complaints. TRAVEL OUTSIDE OF THE [place] IN LAST 30 DAYS: No - Related Data Allergies/Adverse Reactions: lisinopril Adverse Reaction (Intermediate, Verified 02/10/18 21:38) COUGH, MUCOUS Past Medical History - General Information source: Patient - Social History Smoking Status: Never Smoker Frequency of alcohol use: None Drug Abuse: None Family History: Reviewed & Not Pertinent - Past Medical History Cardiac Medical History: Reports: Hx Atrial Fibrillation, Hx Heart Attack - , Hx Hypercholesterolemia, Hx Hypertension - MEDICATED Pulmonary Medical History: Denies: Hx Asthma Neurological Medical History: Reports: Hx Cerebrovascular Accident - 2011, Hx Seizures - LAST SEIZURE 25 YEARS AGO PER Endocrine Medical History: Reports: Hx Diabetes Mellitus Type 2 Renal/ Medical History: Denies: Hx Peritoneal Dialysis GI Medical History: Reports: Hx Gastroesophageal Reflux Disease, Hx Hiatal Hernia, Hx Ulcer - hx of 2012/. Denies: Hx Hepatitis Psychiatric Medical History: Denies: Hx Depression Infectious Medical History: Denies: Hx Hepatitis Past Surgical History: Reports: Hx Open Heart Surgery, Other - Bioprosthetic aortic valve replacement. Denies: Hx Pacemaker - Immunizations Hx Diphtheria, Pertussis, Tetanus Vaccination: No Review of Systems - Review of Systems Constitutional: Weakness - x2 months Physical Exam - Vital signs Vitals: Resp Pulse Ox 18 94 03/08/18 22:19 03/08/18 22:19 - Notes Notes: PHYSICAL EXAMINATION: GENERAL: Well-appearing, well-nourished and in no acute distress. HEAD: Atraumatic, normocephalic. EYES: Pupils equal round and reactive to light, extraocular movements intact, sclera anicteric, conjunctiva are normal. ENT: Nares patent, oropharynx clear without exudates. Moist mucous membranes. NECK: Normal range of motion, supple without lymphadenopathy LUNGS: Breath sounds clear to auscultation bilaterally and equal. No wheezes rales or rhonchi. HEART: Regular rate and rhythm without murmurs ABDOMEN: Soft, nontender, nondistended abdomen. No guarding, no rebound. No masses appreciated. Musculoskeletal: Normal range of motion, no pitting or edema. No cyanosis. NEUROLOGICAL: Cranial nerves grossly intact. Normal speech, normal gait. Normal sensory, motor exams PSYCH: Normal mood, normal affect. SKIN: Warm, Dry, normal turgor, no rashes or lesions noted. Course - Re-evaluation Re-evalutation: 03/08/18 23:00 Extensive conversation was had with the patient as well as his at the bedside upon initial presentation to the emergency department. They continue to report that his weakness has been ongoing for several months and is progressively getting worse. The weakness is bilateral. The patient reports when he puts his head up far enough he has a shooting pain down his arm. His neurosurgeon thinks that he may have a pinched nerve in his neck. Patient's felt that if they came here they could get the MRI done instead of waiting till tomorrow at noon when it was originally scheduled for by the neurosurgeon at [facility]. I explained to patient's and patient that we can rule out any other organic causes of his weakness to include electrolyte disorders, anemias or infection. Patient's declines any imaging. Agrees to blood and urine. 03/09/18 01:07 CBC, CMP and urinalysis are all unremarkable. I discussed this with patient and his spouse. Patient's vital signs have remained stable throughout his emergency department stay. Patient denies any complaints other than the generalized weakness however his neuro exams are completely normal. They report that he has an appointment scheduled with his primary care provider Dr. Santos on Sunday. He will have his MRI ordered at that time. - Vital Signs Vital signs: Temp Pulse Resp BP Pulse Ox 78 18 122/86 H 96 03/09/18 02:14 03/09/18 02:14 03/09/18 02:14 03/09/18 02:14 - Laboratory Result Diagrams: 03/08/18 23:05 03/08/18 23:05 Laboratory results interpreted by me: 03/08/18 03/08/18 23:05 23:05 RBC 4.34 L Hgb 12.4 L Hct 37.7 L RDW 16.5 H Monocytes % 13.5 H Glucose 121 H Discharge - Discharge Clinical Impression: Weakness, Neck pain Condition: Stable Disposition: HOME, SELF-CARE Additional Instructions: Weakness We did not find a definite cause for your weakness. This may require further medical tests. Weakness can be caused by infection, physical exhaustion , rapid weight loss, dehydration, or medicine side effects. Diseases of the muscles, heart, nerves, and blood vessels can make you weak. Sometimes the problem is simply depression or lack of exercise. You should get plenty of rest. Unless the doctor tells you otherwise, it's usually best to add short periods of regular mild exercise. Eat a nutritious diet with multiple small, low-sugar meals. If symptoms continue, additional medical evaluation will be necessary. Be sure to follow up as instructed. If you become very dizzy, nauseated, or feel like you're going to faint, lie down right away. Wait until the symptoms have passed before you get up again. Stand up slowly. Call the doctor or return if you develop chest pain, abdominal pain, severe headache, irregular heartbeat or very fast pulse, confusion, vision problems, fever, muscular pain, or any other new symptom. Your blood work and urinalysis today were unremarked. You declined to have a chest x-ray done as you have not had any fever or cough. Please follow-up with your primary care provider Dr. Santos on Sunday. I think it is a good idea to proceed with the MRI that your neurosurgeon would like you to have. Local [facility] *ask Dr. Santos if they do MRI's. [employer] [phone] Referrals: CHELSEA SANTOS MD [Primary Care Provider] - Follow up as needed
[2018-03-08 23:18] LABS: ABSOLUTE BASOPHILS # (AUTO) 0.1 10^3/uL (0.0-0.2); ABSOLUTE EOSINOPHILS # (AUTO) 0.1 10^3/uL (0.0-0.6); ABSOLUTE LYMPHOCYTES (AUTO) 1.8 10^3/uL (0.5-4.7); ABSOLUTE MONOCYTES (AUTO) 1.2 10^3/uL (0.1-1.4); ABSOLUTE NEUT (AUTO) 5.4 10^3/uL (1.7-8.2); BASOPHILS % (AUTO) 1.4 % (0-2); EOSINOPHILS % (AUTO) 1.4 % (0-6); HEMATOCRIT 37.7 % (37.9-51.0); HEMOGLOBIN 12.4 g/dL (13.5-17.0); LYMPHOCYTES % (AUTO) 20.6 % (13-45); MEAN CORPUSCULAR HEMOGLOBIN 28.6 pg (27.0-33.4); MEAN CORPUSCULAR VOLUME 87 fl (80-97); MONOCYTES % (AUTO) 13.5 % (3-13); PLATELET COUNT 195 10^3/uL (150-450); RED BLOOD COUNT 4.34 10^6/uL (4.35-5.55); RED CELL DISTRIBUTION WIDTH 16.5 % (11.5-14.0); SEGMENTED NEUTROPHILS % (AUTO) 63.1 % (42-78); TOTAL CELLS COUNTED % (AUTO) 100 %; WHITE BLOOD COUNT 8.6 10^3/uL (4.0-10.5)
[2018-03-08 23:32] LABS: ALANINE AMINOTRANSFERASE 27 U/L (21-72); ALBUMIN 3.5 g/dL (3.5-5.0); ALKALINE PHOSPHATASE 73 U/L (38-126); ANION GAP 5 (5-19); ASPARTATE AMINO TRANSFERASE 36 U/L (17-59); BILIRUBIN,DIRECT 0.3 mg/dL (0.0-0.4); BILIRUBIN,TOTAL 0.9 mg/dL (0.2-1.3); BLOOD UREA NITROGEN 10 mg/dL (7-20); CALCIUM 9.4 mg/dL (8.4-10.2); CARBON DIOXIDE 29 mmol/L (22-30); CHLORIDE 105 mmol/L (98-107); GLUCOSE 121 mg/dL (75-110); POTASSIUM 3.9 mmol/L (3.6-5.0); SODIUM 138.9 mmol/L (137-145); TOTAL PROTEIN 6.7 g/dL (6.3-8.2)
[2018-03-09 00:52] LABS: APPEARANCE,URINE CLEAR; BILIRUBIN,URINE NEGATIVE (NEGATIVE); COLOR,URINE YELLOW; GLUCOSE, URINE NEGATIVE (NEGATIVE); KETONES,URINE NEGATIVE (NEGATIVE); LEUKOCYTE ESTERASE,URINE NEGATIVE (NEGATIVE); NITRITE,URINE NEGATIVE (NEGATIVE); PROTEIN,URINE NEGATIVE (NEGATIVE); URINE SPECIFIC GRAVITY 1.011; UROBILINOGEN,URINE NEGATIVE mg/dL (<2.0)
== END 2018-03-09 03:00 | disposition home or self-care (01) ==
LOC: ER 22:05
DX: R53.1 Weakness (principal); M54.2 Cervicalgia; M79.603 Pain in arm, unspecified; E11.9 Type 2 diabetes mellitus without complications; I10 Essential (primary) hypertension; I25.2 Old myocardial infarction; Z98.890 Other specified postprocedural states; Z86.73 Personal history of transient ischemic attack (TIA), and cerebral infarction without residual deficits; Z95.2 Presence of prosthetic heart valve
CPT/HCPCS: 36415; 80053; 81001; 85025; 99285

== ENCOUNTER → 2018-07-26 | Outpatient (CLI) | payer MEDICARE, BC ==
[2018-07-26 09:08] LABS: ANION GAP 9 (5-19); BLOOD UREA NITROGEN 18 mg/dL (7-20); CALCIUM 9.7 mg/dL (8.4-10.2); CARBON DIOXIDE 28 mmol/L (22-30); CHLORIDE 103 mmol/L (98-107); CHOLESTEROL 117.68 mg/dL (0-200); GLUCOSE 105 mg/dL (75-110); POTASSIUM 4.5 mmol/L (3.6-5.0); TRIGLYCERIDES 56 mg/dL (<150)
[2018-07-26 09:19] LABS: DIRECT LDL 63 mg/dL (<100)
[2018-07-27 10:37] LABS: CREATININE URINE 100.1 mg/dL (Not Estab.); MICROALBUMIN URINE 72.1 ug/mL (Not Estab.)
== END ==
LOC: OD 07:46
PROVIDERS: ATTEND Family Medicine
DX: E03.9 Hypothyroidism, unspecified (principal); E78.5 Hyperlipidemia, unspecified; I10 Essential (primary) hypertension; Z79.899 Other long term (current) drug therapy
CPT/HCPCS: 36415; 80048; 80061; 82043; 82570; 83036; 84443

== ENCOUNTER → 2019-03-04 | Outpatient (CLI) | payer MEDICARE, BC | LOC: OD 15:22 | PROVIDERS: ATTEND Family Medicine | DX: E11.9 Type 2 diabetes mellitus without complications (principal); Z79.899 Other long term (current) drug therapy | CPT/HCPCS: 36415; 83036 ==

== ENCOUNTER → 2019-04-29 | Outpatient (CLI) | payer MEDICARE, BC | LOC: OD 10:22 | PROVIDERS: ATTEND Family Medicine | DX: N40.0 Benign prostatic hyperplasia without lower urinary tract symptoms (principal) | CPT/HCPCS: 36415; 84153 ==

== ENCOUNTER → 2019-09-30 | Outpatient (CLI) | payer MEDICARE, BC ==
[2019-09-30 09:24] LABS: ANION GAP 8 (5-19); BLOOD UREA NITROGEN 24 mg/dL (7-20); CALCIUM 9.2 mg/dL (8.4-10.2); CARBON DIOXIDE 26 mmol/L (22-30); CHLORIDE 103 mmol/L (98-107); CHOLESTEROL 135.27 mg/dL (0-200); GLUCOSE 173 mg/dL (75-110); POTASSIUM 4.1 mmol/L (3.6-5.0); TRIGLYCERIDES 56 mg/dL (<150)
[2019-09-30 09:35] LABS: DIRECT LDL 92 mg/dL (<100)
[2019-10-01 07:38] LABS: CREATININE URINE 190.4 mg/dL (Not Estab.)
[2019-10-01 09:11] LABS: MICROALBUMIN URINE 517.2 ug/mL (Not Estab.)
== END ==
LOC: OD 08:07
PROVIDERS: ATTEND Family Medicine
DX: E03.9 Hypothyroidism, unspecified (principal); E78.5 Hyperlipidemia, unspecified; I10 Essential (primary) hypertension; Z79.899 Other long term (current) drug therapy
CPT/HCPCS: 36415; 80048; 80061; 82043; 82570; 83036; 84443

== ENCOUNTER → 2019-12-17 | Outpatient (CLI) | payer MEDICARE, BC ==
--- NOTE | 2019-12-17 13:52 | RADIOLOGY REPORT (SQ) ---
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 TECHNIQUE: Dynamic and static hall scale and color images acquired of the lower extremity arteries. Additional selected spectral images recorded. ABIs recorded. LIMITATIONS: None. FINDINGS: RIGHT LEG: ABIS: Not calculated. INFLOW ARTERIES: Normal, no obstruction evident. FEMORAL ARTERIES:Multiphasic waveforms. The common femoral, deep femoral and SFA are patent. There i s focal stenosis in the distal femoral artery with peak systolic velocities calculated 2.4 m/sec. Th is corresponds to 50 to 75% narrowing based on ratio. POPLITEAL ARTERY:Multiphasic waveforms. Normal, no velocity elevation to suggest focal stenosis. Norm al color Doppler evaluation. No aneurysm. PATENT TIBIOPERONEAL TRUNK AND 3 VESSEL RUNOFF: Patent two-vessel runoff via the anterior tibial andrew ry and posterior tibial artery. Peroneal artery was not evaluated. TBI: Not performed. OTHER: There is retrograde flow noted in the dorsalis pedis artery just proximal to the digital arter ies. LEFT LEG: ABIS: Not calculated. INFLOW ARTERIES: Normal, no obstruction evident. FEMORAL ARTERIES:Multiphasic waveforms. Patent common femoral, deep femoral and SFA. Focal stenosis in the left femoral artery with peak systolic velocities calculated 2.4 meters per 2nd. Again this c orresponds to 50 to 75% narrowing. POPLITEAL ARTERY:Multiphasic waveforms. Normal, no velocity elevation to suggest focal stenosis. Norm al color Doppler evaluation. No aneurysm. PATENT TIBIOPERONEAL TRUNK AND 3 VESSEL RUNOFF: Pain runoff via the posterior tibial and anterior tib ial arteries. TBI: Not performed. OTHER: There is retrograde flow noted in the dorsalis pedis artery just proximal to the digital arter ies. IMPRESSION: 1. Focal 50 to 75% narrowing in the right and left mid the distal superficial femoral a rteries. 2. Retrograde flow in the dorsalis pedis arteries bilaterally just proximal to the digital arteries. COMMENT: [facility] NORMAL: Greater than 1.0 MINIMAL DISEASE: 0.9 to 1.0 CLAUDICATION: 0.5 to 0.9 SEVERE ARTERIAL DISEASE: Less than 0.5 [facility] NORMAL: Greater than 1.0 (1.2 If Heavy Calcifications) NORMAL TO MILD ISCHEMIA: 0.8 to 1.0 MODERATE ISCHEMIA: 0.4 to 0.8 SEVERE ISCHEMIA: Less than 0.4 TECHNICAL DOCUMENTATION: JOB ID: [id number] 2010 [employer]- All Rights Reserved Reading location - IP/workstation name: [email or web address]
== END ==
LOC: SP 08:41
PROVIDERS: ATTEND Podiatrist
DX: E11.51 Type 2 diabetes mellitus with diabetic peripheral angiopathy without gangrene (principal); I73.9 Peripheral vascular disease, unspecified
CPT/HCPCS: 93925

== ENCOUNTER → 2020-05-13 | Outpatient (CLI) | payer MEDICARE, BC | LOC: OD 09:49 | PROVIDERS: ATTEND Family Medicine | DX: N40.0 Benign prostatic hyperplasia without lower urinary tract symptoms (principal); E11.9 Type 2 diabetes mellitus without complications; Z79.899 Other long term (current) drug therapy | CPT/HCPCS: 36415; 83036; 84153 ==

== ENCOUNTER 2020-05-31 11:58 | Emergency (ER) | payer MEDICARE, BC ==
[2020-05-31 13:10] VITALS: BP 167/81
--- NOTE | 2020-05-31 13:41 | ER Document Report ---
ED Medical Screen (RME) - General Chief Complaint: Shortness Of Breath Stated Complaint: SHORT OF BREATH,COUGH Time Seen by Provider: 05/31/20 13:35 Primary Care Provider: CHELSEA GIRON MD [Primary Care Provider] - Follow up as needed Information source: Patient TRAVEL OUTSIDE OF THE [place] IN LAST 30 DAYS: No - HPI Patient complains to provider of: Short of breath Notes: 05/31/20 13:40 Patient with complaints of shortness of breath. The patient was diagnosed with Covid last month. Over the last 4 to 5 days has been feeling very short of breath. This is much worse if he exerts himself. He does have a history of A. fib as well as COPD. He states that his normal oxygen level is 92%. He does not wear oxygen. He is not on blood thinners. Patient is in no distress. Lungs clear and equal throughout. Irregular heart rhythm. Skin normal. An initial examination was made on the patient as part of the triage process, and it was determined a more comprehensive evaluation was necessary. Initial labs were ordered and patient was transferred to another provider in the ED who assumed care and finished evaluation and plan. - Related Data Allergies/Adverse Reactions: lisinopril Adverse Reaction (Intermediate, Verified 02/10/18 21:38) COUGH, MUCOUS Home Medications: tylenol PRN, albuterol 2 puffs every 6 hours, atrovastatin 80mg at HS, bumetanide 1.5 mg daily, calcium with vit D daily, cilostazol 100mg bid, gabapentin 100mg 2 bid, Ketoconazole 2%, Keppra 500mg as directed, synthroil 100 mcg daily, losartan 50mg daily, protonix 40 mg q 12 hours, KCL 10 meq daily Past Medical History - Social History Chew tobacco use (# tins/day): No Frequency of alcohol use: None Drug Abuse: None - Past Medical History Cardiac Medical History: Reports: Hx Atrial Fibrillation, Hx Heart Attack - 06/08, Hx Hypercholesterolemia, Hx Hypertension - MEDICATED Pulmonary Medical History: Denies: Hx Asthma Neurological Medical History: Reports: Hx Cerebrovascular Accident - 2011, Hx Seizures - LAST SEIZURE 25 YEARS AGO PER Endocrine Medical History: Reports: Hx Diabetes Mellitus Type 2 Renal/ Medical History: Denies: Hx Peritoneal Dialysis GI Medical History: Reports: Hx Gastroesophageal Reflux Disease, Hx Hiatal Hernia, Hx Ulcer - hx of 2012/RESOLVED. Denies: Hx Hepatitis Psychiatric Medical History: Denies: Hx Depression Infectious Medical History: Denies: Hx Hepatitis Past Surgical History: Reports: Hx Open Heart Surgery, Other - Bioprosthetic aortic valve replacement. Denies: Hx Pacemaker - Immunizations Hx Diphtheria, Pertussis, Tetanus Vaccination: No Physical Exam - Vital signs Vitals: Temp Pulse Resp BP Pulse Ox 98.6 F 97 20 167/81 H 91 L 05/31/20 13:01 05/31/20 13:01 05/31/20 13:01 05/31/20 13:01 05/31/20 13:01 Course - Vital Signs Vital signs: Temp Pulse Resp BP Pulse Ox 98.6 F 95 22 H 167/81 H 86 L 05/31/20 13:01 05/31/20 13:35 05/31/20 13:35 05/31/20 13:01 05/31/20 13:35 Doctor's Discharge - Discharge Referrals: CHELSEA GIRON MD [Primary Care Provider] - Follow up as needed
[2020-05-31 14:18] LABS: ABSOLUTE EOSINOPHILS # (AUTO) 0.1 10^3/uL (0.0-0.6); ABSOLUTE LYMPHOCYTES (AUTO) 0.5 10^3/uL (0.5-4.7); ABSOLUTE MONOCYTES (AUTO) 0.6 10^3/uL (0.1-1.4); ABSOLUTE NEUT (AUTO) 5.8 10^3/uL (1.7-8.2); BASOPHILS % (AUTO) 0.3 % (0-2); EOSINOPHILS % (AUTO) 1.5 % (0-6); HEMATOCRIT 37.5 % (37.9-51.0); HEMOGLOBIN 13.3 g/dL (13.5-17.0); LYMPHOCYTES % (AUTO) 6.8 % (13-45); MEAN CORPUSCULAR HGB CONC 35.5 g/dL (32.0-36.0); MEAN CORPUSCULAR VOLUME 82 fl (80-97); MONOCYTES % (AUTO) 8.4 % (3-13); PLATELET COUNT 406 10^3/uL (150-450); RED CELL DISTRIBUTION WIDTH 14.2 % (11.5-14.0); TOTAL CELLS COUNTED % (AUTO) 100 %
--- NOTE | 2020-05-31 14:39 | RADIOLOGY REPORT (SQ) ---
EXAM DESCRIPTION: CHEST SINGLE VIEW IMAGES COMPLETED DATE/TIME: 05/31/2020 2:29 pm REASON FOR STUDY: COVID, SOB, HYpoxic COMPARISON: 11/30/2017 EXAM PARAMETERS: NUMBER OF VIEWS: One view. TECHNIQUE: Single frontal radiographic view of the chest acquired. RADIATION DOSE: NA LIMITATIONS: None. FINDINGS: LUNGS AND PLEURA: Patchy bilateral airspace disease consistent with viral pneumonitis. No effusions or pneumothorax. MEDIASTINUM AND HILAR STRUCTURES: No masses. Contour normal. HEART AND VASCULAR STRUCTURES: Cardiomegaly unchanged. No overt failure. BONES: No acute findings. HARDWARE: Sternotomy wires are in place. OTHER: No other significant finding. IMPRESSION: Patchy bilateral airspace disease consistent with viral pneumonitis. TECHNICAL DOCUMENTATION: JOB ID: [id number] 2010 [employer]- All Rights Reserved Reading location - IP/workstation name: [email or web address]
[2020-05-31 14:44] LABS: ALBUMIN 3.9 g/dL (3.5-5.0); ALKALINE PHOSPHATASE 126 U/L (38-126); ANION GAP 12 (5-19); ASPARTATE AMINO TRANSFERASE 66 U/L (17-59); BILIRUBIN,DIRECT 0.4 mg/dL (0.0-0.4); BILIRUBIN,TOTAL 0.9 mg/dL (0.2-1.3); BLOOD UREA NITROGEN 9 mg/dL (7-20); CALCIUM 9.2 mg/dL (8.4-10.2); CARBON DIOXIDE 26 mmol/L (22-30); CHLORIDE 101 mmol/L (98-107); GLUCOSE 178 mg/dL (75-110); POTASSIUM 3.7 mmol/L (3.6-5.0); TOTAL PROTEIN 7.6 g/dL (6.3-8.2)
[2020-05-31 15:06] LABS: NT PRO BNP 495 pg/mL (<125)
[2020-05-31 15:07] LABS: TROPONIN I < 0.012 ng/mL
[2020-05-31 16:24] LABS: C-REACTIVE PROTEIN 152.9 mg/L (<10.0)
--- NOTE | 2020-05-31 17:36 | ER Document Report ---
Entered by CHRIS RODRIGUEZ SCRIBE 05/31/20 1504 Acting as scribe for:KHADIJAH ERICKSON MD ED Respiratory Problem - General Chief Complaint: Shortness Of Breath Stated Complaint: SHORT OF BREATH,COUGH Time Seen by Provider: 05/31/20 13:35 Primary Care Provider: CHELSEA GIRON MD [Primary Care Provider] - Follow up as needed Mode of Arrival: Wheelchair Information source: Patient Notes: This 69 year old male patient with a history of hypertension, atrial fibrillation, CAD, CHF, COPD (not on home O2), and type 2 diabetes mellitus presents to the ED today for evaluation of shortness of breath with exertion for the past x3 days. Patient reports associated chest tightness, orthopnea, and productive cough with thick clear-grayish sputum. He reports concerns for pneumonia. He states that he is normally 91-92% on room air at baseline, but when he got here, his O2 sats were in the 80s. He states that he tested positive for COVID on 05/23. He mentions chronic leg swelling, but denies fever or chills. He did receive a flu shot this year. He states that he takes a baby aspirin every day, but denies any other blood thinners. Denies history of DVT or PE. TRAVEL OUTSIDE OF THE [place] IN LAST 30 DAYS: No - Related Data Allergies/Adverse Reactions: lisinopril Adverse Reaction (Intermediate, Verified 02/10/18 21:38) COUGH, MUCOUS Home Medications: tylenol PRN, albuterol 2 puffs every 6 hours, atrovastatin 80mg at HS, bumetanide 1.5 mg daily, calcium with vit D daily, cilostazol 100mg bid, gabapentin 100mg 2 bid, Ketoconazole 2%, Keppra 500mg as directed, synthroil 100 mcg daily, losartan 50mg daily, protonix 40 mg q 12 hours, KCL 10 meq daily Past Medical History - General Information source: Patient, [facility] Records - Social History Smoking Status: Former Smoker Cigarette use (# per day): No Chew tobacco use (# tins/day): No Smoking Education Provided: No Frequency of alcohol use: None Drug Abuse: None Lives with: Spouse/Significant other Family History: Reviewed & Not Pertinent - Past Medical History Cardiac Medical History: Reports: Hx Atrial Fibrillation, Hx Congestive Heart Failure, Hx Coronary Artery Disease, Hx Heart Attack - 06/08, Hx Hypercholesterolemia, Hx Hypertension - MEDICATED Pulmonary Medical History: Reports: Hx COPD Neurological Medical History: Reports: Hx Cerebrovascular Accident - 2011, Hx Seizures - LAST SEIZURE 25 YEARS AGO PER Endocrine Medical History: Reports: Hx Diabetes Mellitus Type 2 GI Medical History: Reports: Hx Gastroesophageal Reflux Disease, Hx Hiatal Hernia, Hx Ulcer - hx of 2012/ Past Surgical History: Reports: Hx Open Heart Surgery, Hx Valve Replacement - Bioprosthetic aortic valve replacement - Immunizations Hx Diphtheria, Pertussis, Tetanus Vaccination: No Review of Systems - Review of Systems Constitutional: See HPI. denies: Chills, Fever EENT: No symptoms reported Cardiovascular: Chest pain - tightness, Orthopnea Respiratory: See HPI, Cough, Short of breath, Sputum Gastrointestinal: No symptoms reported Genitourinary: No symptoms reported Male Genitourinary: No symptoms reported Musculoskeletal: No symptoms reported Skin: No symptoms reported Hematologic/Lymphatic: No symptoms reported Neurological/Psychological: No symptoms reported -: Yes All other systems reviewed and negative Physical Exam - Vital signs Vitals: Temp Pulse Resp BP Pulse Ox 98.6 F 97 20 167/81 H 91 L 05/31/20 13:01 05/31/20 13:01 05/31/20 13:01 05/31/20 13:01 05/31/20 13:01 - General General appearance: Alert In distress: Mild - HEENT Head: Normocephalic, Atraumatic Eyes: Normal Extraocular movements intact: Yes Pupils: PERRL Neck: Supple - Respiratory Respiratory status: Other - 92-94% O2 sats on room air. 94-96% O2 sats on 2L O2 via NC. Chest status: Nontender Breath sounds: Decreased air movement - Diminished breath sounds in the bases. No: Rales Chest palpation: Normal - Cardiovascular Rhythm: Irregularly irregular, Tachycardia Murmur: Yes Systolic murmur grade 1-6: 2 Friction rub: No Gallop: None auscultated - Abdominal Inspection: Obese Distension: No distension Bowel sounds: Normal Tenderness: Nontender - Abdomen soft Organomegaly: No organomegaly - Back Back: Normal, Nontender - Extremities General upper extremity: Normal inspection General lower extremity: Nontender, Edema - 2+ edema to LLE, 1/3 to 1/2 up the zaldivar - Neurological Neuro grossly intact: Yes Orientation: AAOx4 [place] Coma Scale Eye Opening: Spontaneous Krishna Coma Scale Verbal: Oriented [place] Coma Scale Motor: Obeys Commands Magnolia Coma Scale Total: 15 - Psychological Associated symptoms: Normal affect, Normal mood - Skin Skin Temperature: Warm Skin Moisture: Dry Skin Color: Normal Course - Re-evaluation Re-evalutation: 05/31/20 17:25 Patient resting with 2 L nasal O2 194% saturation. 05/31/20 17:33 Patient decided that he did not want to have a CT angiogram of his chest even though he understands the risk of not having 1 I told him he had elevated D- dimer on top of his Covid pneumonitis and that it was important to learn whether or not he had blood clots in his lung and patient says he refused the test and says he will come back if he needs more help I explained the patient he could go home and if he did not please find out where we are at this point time regarding blood clots in his lung patient refused to stay and said he take the rest on he will return to the emergency department if need be. - Vital Signs Vital signs: Temp Pulse Resp BP Pulse Ox 98.6 F 95 22 H 167/81 H 89 L 05/31/20 13:01 05/31/20 13:35 05/31/20 15:00 05/31/20 13:01 05/31/20 15:00 05/31/20 17:25 Vital signs earlier in the day showed a saturations 89% prior to the oxygen support. Patient's blood pressure is 167/81 afebrile and respiratory rate 22. - Laboratory Results Result Diagrams: 05/31/20 14:00 05/31/20 14:00 Laboratory Results Interpreted: 05/31/20 05/31/20 05/31/20 14:00 14:00 14:00 Hgb 13.3 L Hct 37.5 L RDW 14.2 H Lymph % (Auto) 6.8 L Seg Neutrophils % 83.0 H D-Dimer Glucose 178 H AST 66 H ALT 57 H Lactate Dehydrogenase C-Reactive Protein NT-Pro-B Natriuret Pep 495 H SARS-CoV-2 (PCR) 05/31/20 05/31/20 05/31/20 14:00 14:00 15:29 Hgb Hct RDW Lymph % (Auto) Seg Neutrophils % D-Dimer 2.38 H Glucose AST ALT Lactate Dehydrogenase 320 H C-Reactive Protein 152.9 H NT-Pro-B Natriuret Pep SARS-CoV-2 (PCR) DETECTED H 05/31/20 17:26 Pt is COVID-19 positive status, and has elevated LDH C-reactive protein D-dimer which are factors that are used to monitor the Covid status. Patient was advised that he might have a CTA if his lab reports reported that and I discussed with him the need to have the CT angiogram of his of his chest due to the D-dimer elevation. I explained he may have blood clots in his lungs. Critical Laboratory Results Reviewed: Yes Attending or Supervising Physician who Reviewed Labs: KHADIJAH ERICKSON - Positive COVID-19 and patient has Covid pneumonia on x-ray. - Radiology Results Critical Radiology Results Reviewed: Yes Attending or Supervising Physician who Reviewed Radiology: KHADIJAH ERICKSON - Covid pneumonitis on chest x-ray. - EKG Interpretation by Me Additional EKG results interpreted by me: 05/31/20 16:57 Twelve-lead EKG shows atrial fibrillation with a ventricular response of [address]-T wave changes in the lateral leads MA interval irregular QRS interval within normal range QT interval within normal range no evidence for STEMI. Discharge - Discharge Clinical Impression: Left against medical advice, Lab test positive for detection of COVID-19 virus, Pneumonia, Atrial fibrillation Condition: Critical Disposition: AGAINST MEDICAL ADVICE Referrals: CHELSEA GIRON MD [Primary Care Provider] - Follow up as needed I personally performed the services described in the documentation, reviewed and edited the documentation which was dictated to the scribe in my presence, and it accurately records my words and actions.
--- NOTE | 2020-06-01 10:36 | EKG REPORT ---
SEVERITY:- ABNORMAL ECG - ATRIAL FIBRILLATION, V-RATE 73-116 NONSPECIFIC T ABNORMALITIES, LATERAL LEADS : Confirmed by: Kiesha Sahu 01-Jun-2020 10:35:39
== END 2020-05-31 17:12 | disposition left against medical advice (07) ==
LOC: ER 11:58
DX: U07.1 COVID-19 (principal); J44.0 Chronic obstructive pulmonary disease with (acute) lower respiratory infection; J12.82 Pneumonia due to coronavirus disease 2019; I48.91 Unspecified atrial fibrillation; R07.89 Other chest pain; R06.02 Shortness of breath; R05 Cough; R00.0 Tachycardia, unspecified; R79.89 Other specified abnormal findings of blood chemistry; I11.0 Hypertensive heart disease with heart failure; I50.9 Heart failure, unspecified; I25.2 Old myocardial infarction; I25.10 Atherosclerotic heart disease of native coronary artery without angina pectoris; E11.9 Type 2 diabetes mellitus without complications; E78.00 Pure hypercholesterolemia, unspecified; K21.9 Gastro-esophageal reflux disease without esophagitis; Z79.899 Other long term (current) drug therapy; Z79.82 Long term (current) use of aspirin; Z95.2 Presence of prosthetic heart valve; Z88.3 Allergy status to other anti-infective agents; Z95.3 Presence of xenogenic heart valve; Z87.891 Personal history of nicotine dependence; Z53.20 Procedure and treatment not carried out because of patient's decision for unspecified reasons
CPT/HCPCS: 93005; 99285; 36415; 82728; 83605; 83615; 85025; 0202U ×23; 86140; 80053; 84484; 85379; 83880; 71045; 93010

== ENCOUNTER 2020-05-31 19:01 | Inpatient (IN) | payer MEDICARE, BC ==
[2020-05-31] MEDS ORDERED: DEXAMETHASONE SOD PHOS INJ 10 MG/1 ML VIAL IV ONE ×2 (19:33→22:15)
--- NOTE | 2020-05-31 19:41 | ER Document Report ---
ED Medical Screen (RME) - General Chief Complaint: Shortness Of Breath Stated Complaint: shortness of breath Primary Care Provider: CHELSEA GIRON MD [Primary Care Provider] - Follow up as needed TRAVEL OUTSIDE OF THE [place] IN LAST 30 DAYS: No - HPI Notes: 05/31/20 19:35 Rapid Medical Exam HPI: This is a 69-year-old male who is Covid positive returns to the ER today after leaving AMA a few hours ago. Patient says they wanted to do a CAT scan on his chest to look for blood clots but he had declined. His D-dimer was 2.38. Patient now returns saying he is extremely short of breath and after talking with his spouse he would like to have the scan. Patient says he was just confused and did not understand why they wanted to do that test. Patients oxygen saturation in the ED is 86% on room air and is tachypneic.. Patient denies prior lung issues before being diagnosed with Covid. He is a diabetic blood sugar was 170 per his labs earlier today. Physical Exam: GENERAL: Patient is in mild respiratory distress. Appears ill. Alert and oriented HEAD: Atraumatic, normocephalic. ENT: Moist mucous membranes. RESP: Respirations labored. Hypoxic. CV- Regular rate. NEURO: No focal neurological deficits. Moves all extremities spontaneously and on command. My involvement in this patients care was limited to a rapid initial assessment. A comprehensive ED assessment and evaluation of the patient, analysis of test results, treatment, and completion of the medical decision making process will be performed by other ER providers. I ordered CTA chest PE protocol as well as saline lock as needed supplemental oxygen. Continuous pulse oximetry and monitoring engineer. Patient has labs resulted from just a few hours ago and I did not repeat these. Initially I ordered Decadron but considering his a diabetic I will leave that decision up to the emergency renal physicians so I canceled the Decadron order in triage. 05/31/20 19:38 05/31/20 19:41 - Related Data Allergies/Adverse Reactions: lisinopril Adverse Reaction (Intermediate, Verified 02/10/18 21:38) COUGH, MUCOUS Past Medical History - Past Medical History Cardiac Medical History: Reports: Hx Atrial Fibrillation, Hx Congestive Heart Failure, Hx Coronary Artery Disease, Hx Heart Attack - 06/08, Hx Hypercholesterolemia, Hx Hypertension - MEDICATED Pulmonary Medical History: Reports: Hx COPD Denies: Hx Asthma Neurological Medical History: Reports: Hx Cerebrovascular Accident - 2012, Hx Seizures - LAST SEIZURE 25 YEARS AGO PER Endocrine Medical History: Reports: Hx Diabetes Mellitus Type 2 Renal/ Medical History: Denies: Hx Peritoneal Dialysis GI Medical History: Reports: Hx Gastroesophageal Reflux Disease, Hx Hiatal Hernia, Hx Ulcer - hx of 2013/RESOLVED. Denies: Hx Hepatitis Psychiatric Medical History: Denies: Hx Depression Infectious Medical History: Denies: Hx Hepatitis Past Surgical History: Reports: Hx Open Heart Surgery, Hx Valve Replacement - Bioprosthetic aortic valve replacement, Other - Bioprosthetic aortic valve replacement. Denies: Hx Pacemaker - Immunizations Hx Diphtheria, Pertussis, Tetanus Vaccination: No Doctor's Discharge - Discharge Referrals: CHELSEA GIRON MD [Primary Care Provider] - Follow up as needed
--- NOTE | 2020-06-01 00:10 | ER Document Report ---
ED Respiratory Problem - General Chief Complaint: Shortness Of Breath Stated Complaint: shortness of breath Time Seen by Provider: 06/01/20 00:02 Primary Care Provider: CHELSEA GIRON MD [Primary Care Provider] - Follow up as needed Mode of Arrival: Ambulatory Information source: Patient Notes: ED Medical Screen ([facility] Notes) - General Chief Complaint: Shortness Of Breath Stated Complaint: shortness of breath Primary Care Provider: CHELSEA GIRON MD [Primary Care Provider] - Follow up as needed TRAVEL OUTSIDE OF THE [place] IN LAST 30 DAYS: No - HPI Notes: 05/31/20 19:35 Rapid Medical Exam HPI: This is a 69-year-old male who is Covid positive returns to the ER today after leaving AMA a few hours ago. Patient says they wanted to do a CAT scan on his chest to look for blood clots but he had declined. His D-dimer was 2.38. Patient now returns saying he is extremely short of breath and after talking with his spouse he would like to have the scan. Patient says he was just confused and did not understand why they wanted to do that test. Patients oxygen saturation in the ED is 86% on room air and is tachypneic.. Patient denies prior lung issues before being diagnosed with Covid. He is a diabetic blood sugar was 170 per his labs earlier today. MY NOTES 69-year-old male arrives with chief complaint of having shortness of breath with sats between 91 to 94% on 2 L nasal cannula. He does not usually use oxygen. Both his 39-year-old son and 59-year-old are positive for Covid. He believes that they may have picked it up when they went to [place] around 1 week ago. He now has had his cough and cold symptoms for least 1 week. He came earlier today because he has shortness of breath but after being told he had to have a CAT scan he was very worried and left. His made him come back tonight. He advises "the CT scan was not that big a deal and now is quite ashamed that he was worried about this." Patient has endomorphic body habitus and is tripoding at this time. He speaks in full sentences however. He advises he stopped smoking 20 years ago and does not drink any alcohol. He does not appear to be diaphoretic but is mildly tachypneic. TRAVEL OUTSIDE OF THE [place] IN LAST 30 DAYS: No - HPI Patient complains to provider of: COPD, Cough, Short of breath. No: Asthma, Chest pain Onset: This morning Duration: Better Initiating Event: Exertion. No: Exposure to dust, Exposure to smoke Quality of pain: Achy Severity: Mild Pain Level: 1 Short of Breath: Moderate Chest pain/discomfort: Constant Cough: Productive Sputum amount: Small Sputum color: Clear - Related Data Allergies/Adverse Reactions: lisinopril Adverse Reaction (Intermediate, Verified 02/10/18 21:38) COUGH, MUCOUS Past Medical History - General Information source: Patient - Social History Smoking Status: Former Smoker Cigarette use (# per day): No Chew tobacco use (# tins/day): No Smoking Education Provided: No Frequency of alcohol use: None Drug Abuse: None Lives with: Family Family History: Reviewed & Not Pertinent Patient has suicidal ideation: No Patient has homicidal ideation: No - Past Medical History Cardiac Medical History: Reports: Hx Atrial Fibrillation, Hx Congestive Heart Failure, Hx Coronary Artery Disease, Hx Heart Attack - 06/08, Hx Hypercholesterolemia, Hx Hypertension - MEDICATED Pulmonary Medical History: Reports: Hx COPD Denies: Hx Asthma Neurological Medical History: Reports: Hx Cerebrovascular Accident - 2011, Hx Seizures - LAST SEIZURE 25 YEARS AGO PER Endocrine Medical History: Reports: Hx Diabetes Mellitus Type 2 Renal/ Medical History: Denies: Hx Peritoneal Dialysis GI Medical History: Reports: Hx Gastroesophageal Reflux Disease, Hx Hiatal Hernia, Hx Ulcer - hx of 2012/. Denies: Hx Hepatitis Psychiatric Medical History: Denies: Hx Depression Infectious Medical History: Denies: Hx Hepatitis Past Surgical History: Reports: Hx Open Heart Surgery, Hx Valve Replacement - Bioprosthetic aortic valve replacement, Other - Bioprosthetic aortic valve replacement. Denies: Hx Pacemaker - Immunizations Hx Diphtheria, Pertussis, Tetanus Vaccination: No Review of Systems - Review of Systems Constitutional: See HPI, Weakness, Recent illness EENT: No symptoms reported Cardiovascular: No symptoms reported Respiratory: No symptoms reported, See HPI, Cough, Hurts to breathe, Short of breath Gastrointestinal: No symptoms reported Genitourinary: No symptoms reported Male Genitourinary: No symptoms reported Musculoskeletal: No symptoms reported Skin: No symptoms reported Hematologic/Lymphatic: No symptoms reported Neurological/Psychological: No symptoms reported Physical Exam - Vital signs Vitals: Temp Pulse BP Pulse Ox 98.1 F 98 170/89 H 86 L 05/31/20 19:31 05/31/20 19:31 05/31/20 19:31 05/31/20 19:31 Interpretation: Hypertensive, Hypoxic, Tachypneic - General General appearance: Appears well, Alert - HEENT Head: Normocephalic, Atraumatic Eyes: Normal Pupils: PERRL - Respiratory Respiratory status: No respiratory distress Chest status: Nontender Breath sounds: Normal Chest palpation: Normal - Cardiovascular Rhythm: Regular Heart sounds: Normal auscultation Murmur: No - Abdominal Inspection: Normal Distension: No distension Bowel sounds: Normal Tenderness: Nontender Organomegaly: No organomegaly - Rectal Prostate: Other - deferred - Genitourinary Scrotum: Other - deferred - Back Back: Normal, Nontender - Extremities General upper extremity: Normal inspection, Nontender, Normal color, Normal ROM, Normal temperature General lower extremity: Normal inspection, Nontender, Normal color, Normal ROM, Normal temperature, Normal weight bearing. No: Janet's sign - Neurological Neuro grossly intact: Yes Cognition: Normal Orientation: AAOx4 Krishna Coma Scale Eye Opening: Spontaneous Krishna Coma Scale Verbal: Oriented Krishna Coma Scale Motor: Obeys Commands Krishna Coma Scale Total: 15 Speech: Normal Motor strength normal: LUE, RUE, LLE, RLE Sensory: Normal - Psychological Associated symptoms: Normal affect, Normal mood - Skin Skin Temperature: Warm Skin Moisture: Dry Skin Color: Normal Course - Vital Signs Vital signs: Temp Pulse Resp BP Pulse Ox 98.1 F 98 19 157/79 H 95 05/31/20 19:31 05/31/20 19:31 06/01/20 02:09 06/01/20 02:09 06/01/20 02:09 - Laboratory Results Critical Laboratory Results Reviewed: Yes Attending or Supervising Physician who Reviewed Labs: DANIELLE WALTER JR - Radiology Results Radiology Results Interpreted: 06/01/20 03:29 Dr. Valadez radiologist read CT with lymph nodes and also groundglass opacities Critical Radiology Results Reviewed: Yes Attending or Supervising Physician who Reviewed Radiology: DANIELLE WALTER JR Critical Care Note - Critical Care Note Comments: I discussed this case with Dr. Barajas at [phone] and he will see patient in room for potential admission Discharge - Discharge Clinical Impression: Dyspnea due to COVID-19, Hypoxia, Lab test positive for detection of COVID-19 virus Clinical Impression: (Ruled Out): UTI (urinary tract infection) Condition: Stable Disposition: ADMITTED INPATIENT Referrals: CHELSEA GIRON MD [Primary Care Provider] - Follow up as needed
--- NOTE | 2020-06-01 01:15 | RADIOLOGY REPORT (SQ) ---
EXAM DESCRIPTION: CT CHEST ANGIOGRAPHY WITH IV CONTRAST COMPLETED DATE/TME: 06/01/2020 00:35 CLINICAL HISTORY: 69 years, Male, covid, possible PE. CREAT 0.90 COMPARISON: Chest x-ray from 05/31/2020 TECHNIQUE: 75 mL Omnipaque 350. Sagittal coronal reconstruction. Images stored on PACS. All CT scanners at this facility use dose modulation, iterative reconstruction, and/or weight based dosing when appropriate to reduce radiation dose to as low as reasonably achievable (ALARA). FINDINGS: No evidence for pulmonary hypertension or pulmonary embolus. Peripheral vessels especially left lower lobe not optimally evaluated. Atherosclerotic aorta without dilatation or dissection. Atherosclerotic changes of the proximal great vessels originating from the arch. Mild left cardiomegaly. Multiple small and borderline size mediastinal lymph nodes. Largest lymph nodes in infracarinal region. Suspected underlying moderate emphysema.. Mild to moderate severity bilateral mostly peripheral groundglass opacities suspicious for acute viral pneumonia. No significant pleural disease. No suspicious acute bone abnormality. Previous sternotomy. Limited images of the upper abdomen without obvious abnormality. IMPRESSION: 1. No evidence for PE. 2. Mild to moderate severity acute groundglass opacities suspicious for viral pneumonia. 3. Underlying chronic lung disease including emphysema. 4. Left cardiomegaly. 5. Multiple too many to count small and borderline size lymph nodes. More likely reactive and less likely neoplastic. Is there history of sarcoidosis? Suggest follow-up of this finding.
[2020-06-01] MEDS ORDERED: AZITHROMYCIN INJ 500 MG VIAL IV ONE (03:39)
[2020-06-01] MEDS ORDERED: IVERMECTIN 3 MG TABLET PO ONE ×2 (03:40→04:23)
[2020-06-01] MEDS ORDERED: FAMOTIDINE INJ/PF 20 MG/2 ML SDV IV ONE (03:40)
[2020-06-01] MEDS ORDERED: ACETAMINOPHEN 325 MG TABLET PO PRN (04:14)
[2020-06-01] MEDS ORDERED: PROMETHAZINE HCL INJ 25 MG/1 ML VIAL IV PRN (04:14)
[2020-06-01] MEDS ORDERED: ACETAMINOPHEN 650 MG SUPP.RECT PR PRN (04:14)
[2020-06-01] MEDS ORDERED: IVERMECTIN 3 MG TABLET ONE (04:17)
[2020-06-01 05:29] LABS: ABSOLUTE LYMPHOCYTES (AUTO) 0.3 10^3/uL (0.5-4.7); ABSOLUTE MONOCYTES (AUTO) 0.1 10^3/uL (0.1-1.4); HEMOGLOBIN 12.4 g/dL (13.5-17.0); MEAN CORPUSCULAR VOLUME 83 fl (80-97); TOTAL CELLS COUNTED % (AUTO) 100 %
[2020-06-01] MEDS ORDERED: DEXTROSE 50%-WATER 25 GM/50 ML DISP.SYRIN IV PRN ×2 (05:31)
[2020-06-01] MEDS ORDERED: DEXTROSE 40% GEL 15 GM TUBE PO PRN ×2 (05:31)
[2020-06-01] MEDS ORDERED: GLUCAGON,HUMAN RECOMB 1 MG INJ IM PRN (05:31)
--- NOTE | 2020-06-01 05:31 | PDOC H&P ---
History of Present Illness Admission Date/PCP: CHELSEA GIRON MD Patient complains of: Shortness of breath History of Present Illness: MALCOM KENNEDY JR is a 69 year old male with a history of COPD, diabetes, hypertension, A. fib hyperlipidemia, CAD and anemia who now presents with a 1 week duration of generalized weakness, fatigue nausea, diarrhea, change in his sense of smell and taste, and body aches. And patient states that about 3 days back he started having shortness of breath which was initially with exertion but later on it progressed to being with minimal activities. He feels dizzy when getting up from sitting position and trying to walk. Patient states that he has a chronic cough which has not changed from his baseline. He denies any fever, chills, nausea, vomiting, abdominal pain, or any change in his urinary habit. Patient also denies any chest pain, palpitation, headache, blurring of vision or passing out. Patient was seen at the ED in the morning and left AMA but came back this evening due to worsening of symptoms. Past Medical History Cardiac Medical History: Reports: Atrial Fibrillation, Congestive Heart Failure, Coronary Artery Disease, Myocardial Infarction - 06/08, Hyperlipidema, H ypertension - MEDICATED Pulmonary Medical History: Reports: Chronic Obstructive Pulmonary Disease (COPD) Denies: Asthma Neurological Medical History: Reports: Seizures - LAST SEIZURE 25 YEARS AGO PER Endocrine Medical History: Reports: Diabetes Mellitus Type 2 GI Medical History: Reports: Gastroesophageal Reflux Disease, Hiatal Hernia Denies: Hepatitis Psychiatric Medical History: Denies: Depression Hematology: Reports: Anemia - 2011 Denies: Sickle Cell Disease Past Surgical History Past Surgical History: Reports: Valve Replacement - Bioprosthetic aortic valve replacement, Other - Bioprosthetic aortic valve replacement Denies: Pacemaker Social History Information Source: Patient Lives with: Family Smoking Status: Former Smoker Frequency of Alcohol Use: None Hx Recreational Drug Use: No Drugs: None Hx Prescription Drug Abuse: No - Advance Directive Resuscitation Status: Full Code Family History Family History: Reviewed & Not Pertinent Parental Family History Reviewed: Yes Children Family History Reviewed: Yes Sibling(s) Family History Reviewed.: Yes Medication/Allergy Home Medications: Albuterol Sulfate [Proair HFA Inhalation Aerosol 8.5 gm MDI] 1 puff IH Q4HP PRN 11/30/17 Apixaban [Eliquis 5 mg Tablet] 5 mg PO Q12 11/30/17 Bumetanide [Bumex 1 mg Tablet] 0.5 mg PO NOON 11/30/17 Bumetanide [Bumex 1 mg Tablet] 1 mg PO QAM 11/30/17 Glimepiride [Amaryl 4 mg Tablet] 4 mg PO BID 11/30/17 Levothyroxine Sodium [Synthroid] 100 mcg PO Q6AM 11/30/17 Losartan Potassium [Cozaar 50 mg Tablet] 50 mg PO DAILY 11/30/17 Metformin HCl [Glucophage 500 mg Tablet] 750 mg PO BID 11/30/17 Metoprolol Tartrate [Lopressor 25 mg Tablet] 37.5 mg PO BID 11/30/17 Rosuvastatin Calcium [Crestor] 40 mg PO QPM 11/30/17 Aspirin [Aspirin 81 mg Chewable Tablet] 81 mg PO DAILY #1 pkg 12/08/17 Potassium Chloride 10 meq PO DAILY #14 capsule.er 02/11/18 Potassium Chloride 30 meq PO DAILY #9 capsule.er 02/11/18 Allergies/Adverse Reactions: lisinopril Adverse Reaction (Intermediate, Verified 02/10/18 21:38) COUGH, MUCOUS Review of Systems Constitutional: PRESENT: as per HPI Eyes: ABSENT: visual disturbances Ears: ABSENT: hearing changes Cardiovascular: PRESENT: as per HPI. ABSENT: chest pain, edema, orthropnea, palpitations Respiratory: PRESENT: as per HPI Gastrointestinal: PRESENT: as per HPI. ABSENT: abdominal pain, constipation, hematemesis, hematochezia, nausea, vomiting Genitourinary: ABSENT: dysuria, hematuria Musculoskeletal: ABSENT: joint swelling Integumentary: ABSENT: rash, wounds Neurological: ABSENT: abnormal gait, abnormal speech, confusion, dizziness, focal weakness, syncope Psychiatric: ABSENT: anxiety, depression, homidical ideation, suicidal ideation Endocrine: ABSENT: cold intolerance, heat intolerance, polydipsia, polyuria Hematologic/Lymphatic: ABSENT: easy bleeding, easy bruising Physical Exam Vital Signs: Temp Pulse Resp BP Pulse Ox 98.1 F 98 19 157/79 H 95 05/31/20 19:31 05/31/20 19:31 06/01/20 02:09 06/01/20 02:09 06/01/20 02:09 Additional comments: GENERAL APPEARANCE: Alert and oriented x3, obese, on 2 L intranasal oxygen HEENT: Normocephalic and atraumatic. No scleral icterus. Moist oral mucosa NECK: Supple. No lymphadenopathy or tenderness. No carotid bruit. No JVD CHEST: Symmetric. Nontender to palpation. LUNGS: Clear with good air entry bilaterally. Has bibasilar crackles HEART: Regular rate and rhythm with normal S1 and S2. No murmurs, gallops, or rubs. ABDOMEN: Flat, soft, active bowel sounds, no direct or rebound tenderness. No organomegaly detected. No CVA tenderness EXTREMITIES: No cyanosis, clubbing, or edema. Has a swelling and deformity of the left ankle MUSCULOSKELETAL: No deformity, atrophy or swelling noted PSYCHIATRIC: Recent and remote memory is intact. Appropriate mood and affect. SKIN: Warm, dry, and well perfused. No lesions or rashes are noted. NEUROLOGIC: No focal sensory or motor deficits are noted. Results Impressions: Chest/Abdomen CTA 05/31/20 19:31 IMPRESSION: 1. No evidence for PE. 2. Mild to moderate severity acute groundglass opacities suspicious for viral pneumonia. 3. Underlying chronic lung disease including emphysema. 4. Left cardiomegaly. 5. Multiple too many to count small and borderline size lymph nodes. More likely reactive and less likely neoplastic. Is there history of sarcoidosis? Suggest follow-up of this finding. Assessment and Plan - Diagnosis (1) Acute respiratory failure with hypoxia Is this a current diagnosis for this admission?: Yes Plan: Patient presents with worsening shortness of breath Oxygen saturation was 86% on for the patient on room air Currently requiring 2 L intranasal oxygen for treatment 92 to 95% Has no signs of COPD exacerbation Tested positive for COVID-19 Has elevated acute phase reactants including ferritin, LDH, CRP and D-dimer Chest x-ray showed bilateral airspace opacity concerning for viral pneumonia CTA of the chest done showed no PE but was significant for groundglass opacities with multiple mediastinal lymphadenopathy likely reactive Started on dexamethasone, ivermectin, vitamin C, vitamin D, zinc Will consider ABG if increase in oxygen requirement or desaturation Continue close monitoring of respiratory parameters for any sign of deterioration (2) Pneumonia due to COVID-19 virus Is this a current diagnosis for this admission?: Yes Plan: Currently admitted for hypoxic respiratory failure due to Covid pneumonia Continue management as stated above (3) Atrial fibrillation with RVR Is this a current diagnosis for this admission?: Yes Plan: Patient's heart rate was in the 110s during evaluation on secured entrance monitor Likely precipitated by acute infection Restarted him on metoprolol 37.5 mg twice daily Continue telemetry monitoring Continue apixaban (4) COPD without exacerbation Is this a current diagnosis for this admission?: Yes Plan: Currently not in acute exacerbation Albuterol inhaler as needed (5) CAD (coronary artery disease) Qualifiers: Coronary Disease-Associated Artery/Lesion type: [place] artery [place] vs. transplanted heart: [place] heart Associated angina: without angina Qualified Code(s): I25.10 - Atherosclerotic heart disease of [place] coronary artery without angina pectoris Is this a current diagnosis for this admission?: Yes Plan: Denies any chest pain Continue aspirin, beta-frederic and statin (6) Diabetes mellitus type 2 in obese Is this a current diagnosis for this admission?: Yes Plan: Random blood sugar on this presentation was 178 Placed him on slight increase insulin with Accu-Chek and hypoglycemia protocol (7) Hyperlipidemia Qualifiers: Hyperlipidemia type: mixed hyperlipidemia Qualified Code(s): E78.2 - Mixed hyperlipidemia Is this a current diagnosis for this admission?: Yes Plan: Placed him on atorvastatin (8) Hypertension Qualifiers: Hypertension type: essential hypertension Qualified Code(s): I10 - Essential (primary) hypertension Is this a current diagnosis for this admission?: Yes Plan: Currently blood pressure is within acceptable range Continue home medications (9) Mediastinal lymphadenopathy Is this a current diagnosis for this admission?: Yes Plan: CT chest shows multiple mediastinal lymphadenopathy Likely reactive versus possible sarcoidosis Will need follow-up imaging for monitoring per radiology recommendation (10) Morbid obesity with BMI of 40.0-44.9, adult Is this a current diagnosis for this admission?: Yes Plan: Encourage patient lifestyle modification including dietary changes and exercise - Time Time Spent with patient: 35 or more minutes Total Critical Time (Minutes): 45 Medications reviewed and adjusted accordingly: Yes Anticipated Discharge Disposition: Home, Self Care Anticipated Discharge Timeframe: within 72 hours - Inpatient Certification Based on my medical assessment, after consideration of the patient's comorbidities, presenting symptoms, or acuity I expect that the services needed warrant INPATIENT care.: Yes I certify that my determination is in accordance with my understanding of Medicare's requirements for reasonable and necessary INPATIENT services [42 CFR 412.3e].: Yes Medical Necessity: Failure to Improve With Outpatient Therapy, Need Close Monitoring Due to Risk of Patient Decompensation, Need for Nebulizer Therapy and Monitoring of Response, Risk of Complication if Not Cared For in Hospital Post Hospital Care: D/C or Transfer Summary
[2020-06-01] MEDS ORDERED: ALBUTEROL SULFATE HFA (90 MCG/PUFF) 8 GM MDI IH PRN (05:32)
[2020-06-01 05:34] LABS: ABSOLUTE NEUT (AUTO) 5.5 10^3/uL (1.7-8.2); BASOPHILS % (AUTO) 0.3 % (0-2); EOSINOPHILS % (AUTO) 0.1 % (0-6); HEMATOCRIT 36.2 % (37.9-51.0); LYMPHOCYTES % (AUTO) 5.1 % (13-45); MEAN CORPUSCULAR HEMOGLOBIN 28.5 pg (27.0-33.4); MEAN CORPUSCULAR HGB CONC 34.3 g/dL (32.0-36.0); MONOCYTES % (AUTO) 2.3 % (3-13); PLATELET COUNT 404 10^3/uL (150-450); RED BLOOD COUNT 4.37 10^6/uL (4.35-5.55); RED CELL DISTRIBUTION WIDTH 14.2 % (11.5-14.0); SEGMENTED NEUTROPHILS % (AUTO) 92.2 % (42-78)
[2020-06-01 05:37] LABS: ALBUMIN 3.5 g/dL (3.5-5.0); ALKALINE PHOSPHATASE 117 U/L (38-126); ANION GAP 12 (5-19); ASPARTATE AMINO TRANSFERASE 52 U/L (17-59); BILIRUBIN,DIRECT 0.4 mg/dL (0.0-0.4); BILIRUBIN,TOTAL 0.7 mg/dL (0.2-1.3); BLOOD UREA NITROGEN 11 mg/dL (7-20); CALCIUM 8.8 mg/dL (8.4-10.2); CARBON DIOXIDE 21 mmol/L (22-30); CHLORIDE 103 mmol/L (98-107); CREATINE KINASE 114 U/L (55-170); GLUCOSE 263 mg/dL (75-110); POTASSIUM 4.4 mmol/L (3.6-5.0); TOTAL PROTEIN 7.1 g/dL (6.3-8.2)
[2020-06-01] MEDS: METOPROLOL TARTRATE 25 MG TABLET PO SCH ×2 (07:20→22:00)
[2020-06-01] MEDS: LEVOTHYROXINE SODIUM 0.1 MG TABLET PO SCH (07:20)
[2020-06-01] MEDS: INSULIN REG, HUMAN 100 UNIT/ML 3 ML VIAL (PYX) SUBCUT SCH ×4 (08:20→22:01)
[2020-06-01] MEDS ORDERED: ZINC SULFATE 220 MG CAPSULE PO SCH (10:00)
[2020-06-01] MEDS ORDERED: ENOXAPARIN SODIUM INJ 40 MG/0.4 ML DISP.SYRIN SUBCUT SCH (10:00)
[2020-06-01] MEDS: DEXAMETHASONE SOD PHOS INJ 10 MG/1 ML VIAL IV SCH (10:28)
[2020-06-01] MEDS: LOSARTAN POTASSIUM 50 MG TABLET PO SCH (10:28)
[2020-06-01] MEDS: ASCORBIC ACID 500 MG TABLET PO SCH ×2 (10:28→17:12)
[2020-06-01] MEDS: APIXABAN 5 MG TABLET PO SCH ×2 (10:28→17:13)
[2020-06-01] MEDS: CHOLECALCIFEROL (D3) 1,000 UNIT (25 MCG) TABLET PO SCH (10:28)
[2020-06-01] MEDS: FAMOTIDINE 20 MG TABLET PO SCH ×2 (10:28→22:00)
--- NOTE | 2020-06-01 10:35 | EKG REPORT ---
SEVERITY:- ABNORMAL ECG - ATRIAL FIBRILLATION BORDERLINE RIGHT AXIS DEVIATION ABNORMAL T, CONSIDER ISCHEMIA, DIFFUSE LEADS : Confirmed by: Kiesha Sahu 01-Jun-2020 10:35:06
--- NOTE | 2020-06-01 14:37 | PDOC PROGRESS REPORT ---
Subjective Date:: 06/01/20 Subjective:: MALCOM KENNEDY JR is a 69 year old male with a history of COPD, diabetes, hypertension, A. fib hyperlipidemia, CAD and anemia who is COVID + (05/23/2020), presented with worsening SOB x1 week with notable ARF with hypoxia. Day 1: Patient seen on morning rounds. Siting upright in bed with meal tray. O2sat 94% on 1L, of note NC is not correctly worn at time of exam. Irregular rhythm with rate in 70s. Overall doing well. Cough and SOB have improved. Previously with loss of taste, this has since resolved. No further complaints at this time. No concerns per nursing. Reason For Visit: DYSPNEA DUE TO COVID19,HYPOXIA,LAB TEST POSITIVE Physical Exam Vital Signs: Temp Pulse Resp BP Pulse Ox 98.5 F 108 H 22 H 156/64 H 95 06/01/20 07:14 06/01/20 07:14 06/01/20 07:14 06/01/20 07:14 06/01/20 07:14 Intake & Output 05/31/20 06/01/20 06/02/20 06:59 06:59 06:59 Weight 154.221 kg 141.9 kg General appearance: PRESENT: no acute distress, cooperative, obese Head exam: PRESENT: atraumatic, normocephalic Eye exam: PRESENT: EOMI Mouth exam: PRESENT: moist Neck exam: PRESENT: full ROM. ABSENT: JVD Respiratory exam: PRESENT: clear to auscultation stephanie, crackles - bibasilar, other - Good air entry bilaterally Cardiovascular exam: PRESENT: irregular rhythm - with rate in 70s on telemetry GI/Abdominal exam: PRESENT: soft. ABSENT: tenderness Extremities exam: PRESENT: full ROM, other - Swelling and noted deformity to lfet ankle. Without redness, warmth, tenderness. Full ROM. Appears chronic.. ABSENT: tenderness Musculoskeletal exam: PRESENT: ambulatory Neurological exam: PRESENT: alert, awake, oriented to person, oriented to place, oriented to time, oriented to situation, CN II-XII grossly intact Psychiatric exam: PRESENT: appropriate affect, normal mood Skin exam: PRESENT: dry, intact, normal color. ABSENT: rash Results Laboratory Results: 06/01/20 05:07 06/01/20 05:07 06/01/20 06/01/20 05:07 05:07 WBC 6.0 RBC 4.37 Hgb 12.4 L Hct 36.2 L MCV 83 MCH 28.5 MCHC 34.3 RDW 14.2 H Plt Count 404 Seg Neutrophils % 92.2 H Sodium 136.2 L Potassium 4.4 Chloride 103 Carbon Dioxide 21 L Anion Gap 12 BUN 11 Creatinine 0.93 Est GFR ( Amer) > 60 Glucose 263 H Calcium 8.8 Total Bilirubin 0.7 AST 52 Alkaline Phosphatase 117 Total Protein 7.1 Albumin 3.5 06/01/20 05:07 Creatine Kinase 114 Impressions: Chest/Abdomen CTA 05/31/20 19:31 IMPRESSION: 1. No evidence for PE. 2. Mild to moderate severity acute groundglass opacities suspicious for viral pneumonia. 3. Underlying chronic lung disease including emphysema. 4. Left cardiomegaly. 5. Multiple too many to count small and borderline size lymph nodes. More likely reactive and less likely neoplastic. Is there history of sarcoidosis? Suggest follow-up of this finding. Assessment and Plan - Diagnosis (1) Acute respiratory failure with hypoxia Is this a current diagnosis for this admission?: Yes (2) Pneumonia due to COVID-19 virus Is this a current diagnosis for this admission?: Yes (3) Atrial fibrillation with RVR Is this a current diagnosis for this admission?: Yes (4) COPD without exacerbation Is this a current diagnosis for this admission?: Yes (5) CAD (coronary artery disease) Qualifiers: Coronary Disease-Associated Artery/Lesion type: [place] artery [place] vs. transplanted heart: [place] heart Associated angina: without angina Qualified Code(s): I25.10 - Atherosclerotic heart disease of [place] coronary artery without angina pectoris Is this a current diagnosis for this admission?: Yes (6) Diabetes mellitus type 2 in obese Is this a current diagnosis for this admission?: Yes (7) Hyperlipidemia Qualifiers: Hyperlipidemia type: mixed hyperlipidemia Qualified Code(s): E78.2 - Mixed hyperlipidemia Is this a current diagnosis for this admission?: Yes (8) Hypertension Qualifiers: Hypertension type: essential hypertension Qualified Code(s): I10 - [place] l (primary) hypertension Is this a current diagnosis for this admission?: Yes (9) Mediastinal lymphadenopathy Is this a current diagnosis for this admission?: Yes (10) Morbid obesity with BMI of 40.0-44.9, adult Is this a current diagnosis for this admission?: Yes - Plan Summary Summary: Acute respiratory failure with hypoxia / Pneumonia due to COVID-19 virus: 94% on 1L NC. Improving SOB and cough. - COVID+ 05/23/2020, x3 day hx increased SOB. - Initial presentation: Oxygen saturation was 86% on for the patient RA - Elevated ferritin, LDH, CRP and D-dimer - CXR: bilateral airspace opacity concerning for viral pneumonia - CTA of the chest: no PE, groundglass opacities with multiple mediastinal lymphadenopathy likely reactive - x2 doses Ivermectin - Cnt dexamethasone, vitamin C, vitamin D, zinc - Continue close monitoring of respiratory parameters for any sign of deterioration Atrial fibrillation with RVR: On telemetry HR 70s, irregular rhythm - Cnt metoprolol 37.5 mg twice daily - Cnt Apaxiban - Cnt telemetry monitoring Mediastinal lymphadenopathy: CT chest: multiple mediastinal lymphadenopathy - Likely reactive versus possible sarcoidosis - Denies hx sarcoidosis. - HARRISON pending, Vit D WNL. Without skin findings. - Radiology recommends f/u imaging for monitoring - Possible pulm/PCP outpatient follow up. COPD without exacerbation: Albuterol prn. CAD (coronary artery disease): Denies any chest pain. Cnt aspirin, beta-frederic and statin. Diabetes mellitus type 2 in obese: BS in 200s. On SSI, receiving ~5u with meals. Cnt Accu-Chek and hypoglycemia protocol Hypertension: Currently blood pressure is within acceptable range. Continue home medications. Morbid obesity with BMI of 40.0-44.9, adult: Encourage patient lifestyle modifi cation including dietary changes and exercise - Time Time Spent with patient: 25-34 minutes Medications reviewed and adjusted accordingly: Yes Anticipated Discharge Disposition: Home, Self Care Anticipated Discharge Timeframe: within 48 hours
[2020-06-02] MEDS: LEVOTHYROXINE SODIUM 0.1 MG TABLET PO SCH (05:16)
[2020-06-02 06:24] LABS: ABSOLUTE LYMPHOCYTES (AUTO) 0.6 10^3/uL (0.5-4.7); ABSOLUTE MONOCYTES (AUTO) 0.9 10^3/uL (0.1-1.4); BASOPHILS % (AUTO) 0.1 % (0-2); HEMATOCRIT 33.6 % (37.9-51.0); HEMOGLOBIN 11.6 g/dL (13.5-17.0); LYMPHOCYTES % (AUTO) 5.4 % (13-45); MEAN CORPUSCULAR HEMOGLOBIN 28.1 pg (27.0-33.4); MEAN CORPUSCULAR HGB CONC 34.4 g/dL (32.0-36.0); MEAN CORPUSCULAR VOLUME 82 fl (80-97); MONOCYTES % (AUTO) 7.6 % (3-13); PLATELET COUNT 385 10^3/uL (150-450); RED BLOOD COUNT 4.11 10^6/uL (4.35-5.55); RED CELL DISTRIBUTION WIDTH 14.2 % (11.5-14.0); SEGMENTED NEUTROPHILS % (AUTO) 86.9 % (42-78); TOTAL CELLS COUNTED % (AUTO) 100 %; WHITE BLOOD COUNT 11.5 10^3/uL (4.0-10.5)
[2020-06-02 07:09] LABS: ALBUMIN 3.1 g/dL (3.5-5.0); ALKALINE PHOSPHATASE 89 U/L (38-126); ANION GAP 5 (5-19); ASPARTATE AMINO TRANSFERASE 61 U/L (17-59); BILIRUBIN,DIRECT 0.3 mg/dL (0.0-0.4); BILIRUBIN,TOTAL 0.4 mg/dL (0.2-1.3); BLOOD UREA NITROGEN 22 mg/dL (7-20); CALCIUM 8.7 mg/dL (8.4-10.2); CARBON DIOXIDE 23 mmol/L (22-30); CHLORIDE 104 mmol/L (98-107); GLUCOSE 150 mg/dL (75-110); POTASSIUM 4.3 mmol/L (3.6-5.0); TOTAL PROTEIN 6.4 g/dL (6.3-8.2)
[2020-06-02 08:11] LABS: C-REACTIVE PROTEIN 36.9 mg/L (<10.0)
[2020-06-02] MEDS: INSULIN REG, HUMAN 100 UNIT/ML 3 ML VIAL (PYX) SUBCUT SCH ×4 (10:25→21:40)
[2020-06-02] MEDS: BUMETANIDE 1 MG TABLET PO SCH (10:29)
[2020-06-02] MEDS: CHOLECALCIFEROL (D3) 1,000 UNIT (25 MCG) TABLET PO SCH (10:30)
[2020-06-02] MEDS: METOPROLOL TARTRATE 25 MG TABLET PO SCH ×2 (10:30→21:34)
[2020-06-02] MEDS: FAMOTIDINE 20 MG TABLET PO SCH ×2 (10:30→21:35)
[2020-06-02] MEDS: DEXAMETHASONE SOD PHOS INJ 10 MG/1 ML VIAL IV SCH (10:31)
[2020-06-02] MEDS: ASCORBIC ACID 500 MG TABLET PO SCH ×2 (10:31→18:32)
[2020-06-02] MEDS: APIXABAN 5 MG TABLET PO SCH ×2 (10:31→18:32)
[2020-06-02] MEDS: AZITHROMYCIN 250 MG TABLET PO SCH (10:31)
[2020-06-02] MEDS: LOSARTAN POTASSIUM 50 MG TABLET PO SCH (10:31)
--- NOTE | 2020-06-02 13:57 | PDOC PROGRESS REPORT ---
Subjective Date:: 06/02/20 Subjective:: MALCOM KENNEDY JR is a 69 year old male with a history of COPD, diabetes, hypertension, A. fib hyperlipidemia, CAD and anemia who is COVID + (05/23/2020), presented with worsening SOB x1 week with notable ARF with hypoxia. Day 2: Patient seen on morning rounds. Siting upright in bed with meal tray. O2sat 96% on 2L. Pt reports overall significant improvement. On initial presentation could not catch his breath/take a deep breath, now breathing comfortably. Denies CP, SOB, palpitations, cough, abd pain, NVD. Eager to get off his O2 and home. No further complaints. Pt with hx RIN, has CPAP at home but non-compliant. Per nursing report HR droppped into 30s overnight, telemetry reviewed, HR consistently 60-90bpm with single noted drop to 50 for <5 seconds. Pt's O2 was increased to 4L via business control manager nursing, though reason is unclear. Reviewed O2 sats with lowest 89%. Discussed with nursing, patient appropriate to wean off O2 at this time. Reason For Visit: DYSPNEA DUE TO COVID19,HYPOXIA,LAB TEST POSITIVE Physical Exam Vital Signs: Temp Pulse Resp BP Pulse Ox 98.4 F 78 16 127/70 H 96 06/02/20 12:45 06/02/20 12:45 06/02/20 08:46 06/02/20 12:45 06/02/20 12:45 Intake & Output 06/01/20 06/02/20 06/03/20 06:59 06:59 06:59 Intake Total 2666 Balance 2666 Weight 154.221 kg 142.7 kg General appearance: PRESENT: no acute distress, cooperative, obese Respiratory exam: PRESENT: clear to auscultation stephanie - improved airway movement in all lung angulo, crackles - bibasilar, improved, unlabored. ABSENT: rhonchi, tachypnea, wheezes Cardiovascular exam: PRESENT: irregular rhythm - rate in 70s. GI/Abdominal exam: PRESENT: soft. ABSENT: tenderness Extremities exam: PRESENT: full ROM, other - swelling deformity L ankle, though has improved Musculoskeletal exam: PRESENT: ambulatory Neurological exam: PRESENT: alert, awake, oriented to person, oriented to place, oriented to time, oriented to situation, CN II-XII grossly intact Psychiatric exam: PRESENT: appropriate affect, normal mood Skin exam: PRESENT: dry, intact Results Laboratory Results: 06/02/20 05:33 06/02/20 05:33 06/02/20 06/02/20 06/02/20 05:33 05:33 05:33 WBC 11.5 H RBC 4.11 L Hgb 11.6 L Hct 33.6 L MCV 82 MCH 28.1 MCHC 34.4 RDW 14.2 H Plt Count 385 Seg Neutrophils % 86.9 H Sodium 132.4 L Potassium 4.3 Chloride 104 Carbon Dioxide 23 Anion Gap 5 BUN 22 H Creatinine 0.98 Est GFR ( Amer) > 60 Glucose 150 H Calcium 8.7 Ferritin 211.00 Total Bilirubin 0.4 AST 61 H Alkaline Phosphatase 89 C-Reactive Protein 36.9 H Total Protein 6.4 Albumin 3.1 L 06/01/20 05:07 Creatine Kinase 114 Impressions: Chest/Abdomen CTA 05/31/20 19:31 IMPRESSION: 1. No evidence for PE. 2. Mild to moderate severity acute groundglass opacities suspicious for viral pneumonia. 3. Underlying chronic lung disease including emphysema. 4. Left cardiomegaly. 5. Multiple too many to count small and borderline size lymph nodes. More likely reactive and less likely neoplastic. Is there history of sarcoidosis? Suggest follow-up of this finding. Assessment and Plan - Diagnosis (1) Acute respiratory failure with hypoxia Is this a current diagnosis for this admission?: Yes (2) Pneumonia due to COVID-19 virus Is this a current diagnosis for this admission?: Yes (3) Atrial fibrillation with RVR Is this a current diagnosis for this admission?: Yes (4) COPD without exacerbation Is this a current diagnosis for this admission?: Yes (5) CAD (coronary artery disease) Qualifiers: Coronary Disease-Associated Artery/Lesion type: [place] artery [place] vs. transplanted heart: [place] heart Associated angina: without angina Qualified Code(s): I25.10 - Atherosclerotic heart disease of [place] coronary artery without angina pectoris Is this a current diagnosis for this admission?: Yes (6) Diabetes mellitus type 2 in obese Is this a current diagnosis for this admission?: Yes (7) Hyperlipidemia Qualifiers: Hyperlipidemia type: mixed hyperlipidemia Qualified Code(s): E78.2 - Mixed hyperlipidemia Is this a current diagnosis for this admission?: Yes (8) Hypertension Qualifiers: Hypertension type: essential hypertension Qualified Code(s): I10 - Essential (primary) hypertension Is this a current diagnosis for this admission?: Yes (9) Mediastinal lymphadenopathy Is this a current diagnosis for this admission?: Yes (10) Morbid obesity with BMI of 40.0-44.9, adult Is this a current diagnosis for this admission?: Yes (11) Neutrophilic leukocytosis Is this a current diagnosis for this admission?: Yes - Plan Summary Summary: Acute respiratory failure with hypoxia / Pneumonia due to COVID-19 virus: 96% on 2L NC. Without c/o SOB or cough today. Wean O2. - COVID+ 05/23/2020, x3 day hx increased SOB. - Initial presentation: Oxygen saturation was 86% on for the patient RA - Improved ferritin, LDH, CRP and D-dimer - CXR: bilateral airspace opacity concerning for viral pneumonia - CTA of the chest: no PE, groundglass opacities with multiple mediastinal lymphadenopathy likely reactive - x2 doses Ivermectin - On Azithromycin p.o. - Cnt dexamethasone, vitamin C, vitamin D, zinc - Once O2 weaned can discharge home, likely tomorrow. Leukocytosis: WBC 11.5, minimally elevated. Afebrile, VSS. Without acute sy mptoms or complaints today. - Coag neg staph + in one 06/01; likely a contaminant. - 06/01 WGTD. - Repeat BC pending - No indication to initiate additional abx therapy at this time. Atrial fibrillation with RVR: On telemetry HR 70s, irregular rhythm. Cnt metoprolol 37.5 mg twice daily. Cnt Apaxiban. Cnt telemetry monitoring Mediastinal lymphadenopathy: CT chest: multiple mediastinal lymphadenopathy - Likely reactive versus possible sarcoidosis - Denies hx sarcoidosis: HARRISON WNL, Vit D WNL. Without skin findings. - Per pt followed by shelter supervisor last sen x1 month outpatient, without acute concerns/findings. - Radiology recommends f/u imaging for monitoring - Pulm/PCP outpatient follow up. RIN: Likely cause of desat at night and decreased HR, though none noted on telemetry. - Has CPAP at home, though non-compliant - Initiate CPAP COPD without exacerbation: Albuterol prn. CAD (coronary artery disease): Denies any chest pain. Cnt aspirin, beta-frederic and statin. Diabetes mellitus type 2 in obese: BS in 150-200s. On SSI, receiving ~4u with meals. Cnt Accu-Chek and hypoglycemia protocol Hypertension: Currently blood pressure is within acceptable range. Continue home medications. Morbid obesity with BMI of 40.0-44.9, adult: Encourage patient lifestyle modif ication including dietary changes and exercise - Time Time Spent with patient: 25-34 minutes Medications reviewed and adjusted accordingly: Yes Anticipated Discharge Disposition: Home, Self Care Anticipated Discharge Timeframe: within 24 hours
[2020-06-03 05:13] LABS: ABSOLUTE LYMPHOCYTES (AUTO) 0.8 10^3/uL (0.5-4.7); ABSOLUTE MONOCYTES (AUTO) 0.8 10^3/uL (0.1-1.4); ABSOLUTE NEUT (AUTO) 10.9 10^3/uL (1.7-8.2); BASOPHILS % (AUTO) 0.1 % (0-2); HEMATOCRIT 34.6 % (37.9-51.0); HEMOGLOBIN 11.9 g/dL (13.5-17.0); MEAN CORPUSCULAR HEMOGLOBIN 28.5 pg (27.0-33.4); MEAN CORPUSCULAR HGB CONC 34.5 g/dL (32.0-36.0); MEAN CORPUSCULAR VOLUME 83 fl (80-97); MONOCYTES % (AUTO) 6.6 % (3-13); PLATELET COUNT 417 10^3/uL (150-450); RED BLOOD COUNT 4.19 10^6/uL (4.35-5.55); RED CELL DISTRIBUTION WIDTH 14.4 % (11.5-14.0); SEGMENTED NEUTROPHILS % (AUTO) 87.3 % (42-78); TOTAL CELLS COUNTED % (AUTO) 100 %; WHITE BLOOD COUNT 12.5 10^3/uL (4.0-10.5)
[2020-06-03 05:35] LABS: ALBUMIN 3.2 g/dL (3.5-5.0); ALKALINE PHOSPHATASE 84 U/L (38-126); ANION GAP 11 (5-19); ASPARTATE AMINO TRANSFERASE 56 U/L (17-59); BILIRUBIN,DIRECT 0.4 mg/dL (0.0-0.4); BILIRUBIN,TOTAL 0.5 mg/dL (0.2-1.3); BLOOD UREA NITROGEN 32 mg/dL (7-20); CALCIUM 8.7 mg/dL (8.4-10.2); CARBON DIOXIDE 23 mmol/L (22-30); CHLORIDE 104 mmol/L (98-107); GLUCOSE 131 mg/dL (75-110); POTASSIUM 4.4 mmol/L (3.6-5.0); TOTAL PROTEIN 6.5 g/dL (6.3-8.2)
[2020-06-03] MEDS: LEVOTHYROXINE SODIUM 0.1 MG TABLET PO SCH (05:52)
[2020-06-03] MEDS: INSULIN REG, HUMAN 100 UNIT/ML 3 ML VIAL (PYX) SUBCUT SCH ×2 (07:50→14:10)
[2020-06-03] MEDS: DEXAMETHASONE SOD PHOS INJ 10 MG/1 ML VIAL IV SCH (11:11)
[2020-06-03] MEDS: FAMOTIDINE 20 MG TABLET PO SCH (11:12)
[2020-06-03] MEDS: ASCORBIC ACID 500 MG TABLET PO SCH (11:12)
[2020-06-03] MEDS: AZITHROMYCIN 250 MG TABLET PO SCH (11:12)
[2020-06-03] MEDS: BUMETANIDE 1 MG TABLET PO SCH (11:12)
[2020-06-03] MEDS: CHOLECALCIFEROL (D3) 1,000 UNIT (25 MCG) TABLET PO SCH (11:13)
[2020-06-03] MEDS: APIXABAN 5 MG TABLET PO SCH (11:13)
[2020-06-03] MEDS: LOSARTAN POTASSIUM 50 MG TABLET PO SCH (11:13)
[2020-06-03] MEDS: METOPROLOL TARTRATE 25 MG TABLET PO SCH (11:13)
[2020-06-03 15:17] VITALS: BP 156/64
--- NOTE | 2020-06-03 17:49 | PDOC DISCHARGE SUMMARY ---
Impression - Admit/DC Date/PCP Admission Date/Primary Care Provider: 06/01/20 06:11 CHELSEA GIRON MD Discharge Date: 06/03/20 - Discharge Diagnosis (1) Acute respiratory failure with hypoxia Is this a current diagnosis for this admission?: Yes (2) Pneumonia due to COVID-19 virus Is this a current diagnosis for this admission?: Yes (3) Atrial fibrillation with RVR Is this a current diagnosis for this admission?: Yes (4) COPD without exacerbation Is this a current diagnosis for this admission?: Yes (5) CAD (coronary artery disease) Is this a current diagnosis for this admission?: Yes (6) Diabetes mellitus type 2 in obese Is this a current diagnosis for this admission?: Yes (7) Hyperlipidemia Is this a current diagnosis for this admission?: Yes (8) Hypertension Is this a current diagnosis for this admission?: Yes (9) Mediastinal lymphadenopathy Is this a current diagnosis for this admission?: Yes (10) Morbid obesity with BMI of 40.0-44.9, adult Is this a current diagnosis for this admission?: Yes (11) Neutrophilic leukocytosis Is this a current diagnosis for this admission?: Yes - Additional Information Resuscitation Status: Full Code Discharge Activity: Activity As Tolerated, Slowly Increase Activity Referrals: CHELSEA GIRON MD [Primary Care Provider] - 06/15/20 11:00 am Home Medications: Bumetanide [Bumex 1 mg Tablet] 1.5 tab PO DAILY 11/30/17 Glimepiride [Amaryl 4 mg Tablet] 4 mg PO BID 11/30/17 Levothyroxine Sodium [Synthroid] 100 mcg PO DAILY 11/30/17 Losartan Potassium [Cozaar 50 mg Tablet] 50 mg PO DAILY 11/30/17 Potassium Chloride 10 meq PO DAILY #14 capsule.er 02/11/18 Atorvastatin Calcium [Lipitor 40 mg Tablet] 40 mg PO QHS 06/01/20 Cilostazol [Pletal 100 mg Tablet] 100 mg PO BID 06/01/20 Gabapentin [Neurontin] 600 mg PO TID 06/01/20 Tamsulosin HCl [Flomax] 0.4 mg PO DAILY 06/01/20 Apixaban [Eliquis 5 mg Tablet] 5 mg PO BID tablet 06/03/20 History of Present Illiness History of Present Illness: As per admitting provider "MALCOM KENNEDY JR is a 69 year old male with a history o f COPD, diabetes, hypertension, A. fib hyperlipidemia, CAD and anemia who now presents with a 1 week duration of generalized weakness, fatigue nausea, diarrhea, change in his sense of smell and taste, and body aches. And patient states that about 3 days back he started having shortness of breath which was initially with exertion but later on it progressed to being with minimal activities. He feels dizzy when getting up from sitting position and trying to walk. Patient states that he has a chronic cough which has not changed from his baseline. He denies any fever, chills, nausea, vomiting, abdominal pain, or any change in his urinary habit. Patient also denies any chest pain, palpitation, headache, blurring of vision or passing out. Patient was seen at the ED in the morning and left AMA but came back this evening due to worsening of symptoms." Hospital Course Hospital Course: Acute respiratory failure with hypoxia / Pneumonia due to COVID-19 virus: Oxygen saturation 99 on room air while at rest, this notably dropped to 89 when ambulating though quickly returned to 99%. Patient reports overall significant improvement in his shortness of breath, patient is clear for discharge today is eager wanting to go home. Discussed with patient's Odette on the phone prior to discharge. Patient is cleared for discharge at this time. - COVID+ 05/23/2020, x3 day hx increased SOB. - Initial presentation: Oxygen saturation was 86% on for the patient RA - Improved ferritin, LDH, CRP and D-dimer - CXR: bilateral airspace opacity concerning for viral pneumonia - CTA of the chest: no PE, groundglass opacities with multiple mediastinal lymphadenopathy likely reactive - x2 doses Ivermectin - On Azithromycin p.o, this can be discontinued at this time. - Received dexamethasone, vitamin C, vitamin D, zinc Leukocytosis: WBC 11.5 -> 12.5, minimally elevated and likely secondary to steroid use. Patient has remained afebrile with VSS. Without acute symptoms or complaints today. In fact states that he feels significantly better compared to when he first came in. - Coag neg staph + in one 06/01; likely a contaminant. - 05/31 NGTD. - Repeat NGTD. Atrial fibrillation with RVR: On telemetry HR 50s, irregular rhythm just prior to discharge well-controlled on home medication. Cnt metoprolol 37.5 mg twice daily. Cnt Apaxiban. Mediastinal lymphadenopathy: Patient and patient's made aware of findings. Though likely associated with inflammatory process I did recommend patient follow up with his group president for repeat imaging and monitoring. - CT chest: multiple mediastinal lymphadenopathy - Likely reactive versus possible sarcoidosis - Denies hx sarcoidosis: HARRISON WNL, Vit D WNL. Without skin findings. - Per pt followed by group president last sen x1 month outpatient, without acute concerns/findings. - Radiology recommends f/u imaging for monitoring - Pulm/PCP outpatient follow up. RIN: Likely cause of de-sat at night and decreased HR, though none noted on telemetry. Discussed with both the patient and his patient's need for repeat sleep study in the outpatient setting and to obtain new CPAP machine. Recommend following up with primary care and group president regarding this. - Has CPAP at home, though non-compliant COPD without exacerbation: Albuterol prn. CAD (coronary artery disease): Denies any chest pain. Cnt aspirin, beta-frederic and statin. Diabetes mellitus type 2 in obese: BS in 150-200s. On SSI, receiving ~4u with meals. Cnt Accu-Chek and hypoglycemia protocol. May resume outpatient medications on discharge. Hypertension: Currently blood pressure is within acceptable range. Continue home medications. Morbid obesity with BMI of 40.0-44.9, adult: Encourage patient lifestyle modification including dietary changes and exercise Physical Exam Vital Signs: Temp Pulse Resp BP Pulse Ox 97.4 F 55 L 18 156/64 H 96 06/03/20 15:15 06/03/20 15:15 06/03/20 15:15 06/03/20 15:15 06/03/20 15:15 Intake & Output 06/02/20 06/03/20 06/04/20 06:59 06:59 06:59 Intake Total 2666 987 Balance 2666 987 Weight 142.7 kg 142.6 kg Additional comments: General appearance: PRESENT: no acute distress, cooperative, obese Respiratory exam: PRESENT: clear to auscultation stephanie - improved airway movement in all lung angulo, very fine and minimal bibasilar crackles, improved, unlabored. ABSENT: rhonchi, tachypnea, wheezes Cardiovascular exam: PRESENT: irregular rhythm - rate in 50s on telemetry. GI/Abdominal exam: PRESENT: soft. ABSENT: tenderness Extremities exam: PRESENT: full ROM, other - swelling deformity L ankle, though has improved Musculoskeletal exam: PRESENT: ambulatory Neurological exam: PRESENT: alert, awake, oriented to person, oriented to place, oriented to time, oriented to situation, CN II-XII grossly intact Psychiatric exam: PRESENT: appropriate affect, normal mood Skin exam: PRESENT: dry, intact Results Laboratory Results: WBC 12.5 10^3/uL (4.0-10.5) H 06/03/20 04:20 RBC 4.19 10^6/uL (4.35-5.55) L 06/03/20 04:20 Hgb 11.9 g/dL (13.5-17.0) L 06/03/20 04:20 Hct 34.6 % (37.9-51.0) L 06/03/20 04:20 MCV 83 fl (80-97) 06/03/20 04:20 MCH 28.5 pg (27.0-33.4) 06/03/20 04:20 MCHC 34.5 g/dL (32.0-36.0) 06/03/20 04:20 RDW 14.4 % (11.5-14.0) H 06/03/20 04:20 Plt Count 417 10^3/uL (150-450) 06/03/20 04:20 Lymph % (Auto) 6.0 % (13-45) L 06/03/20 04:20 Bullock % (Auto) 6.6 % (3-13) 06/03/20 04:20 Eos % (Auto) 0.0 % (0-6) 06/03/20 04:20 Baso % (Auto) 0.1 % (0-2) 06/03/20 04:20 Absolute Neuts (auto) 10.9 10^3/uL (1.7-8.2) H 06/03/20 04:20 Absolute Lymphs (auto) 0.8 10^3/uL (0.5-4.7) 06/03/20 04:20 Absolute Monos (auto) 0.8 10^3/uL (0.1-1.4) 06/03/20 04:20 Absolute Eos (auto) 0.0 10^3/uL (0.0-0.6) 06/03/20 04:20 Absolute Basos (auto) 0.0 10^3/uL (0.0-0.2) 06/03/20 04:20 Seg Neutrophils % 87.3 % (42-78) H 06/03/20 04:20 ESR 75 mm/hr (0-20) H 06/02/20 05:33 D-Dimer 1.57 ug/mL (0.00-0.50) H 06/02/20 09:56 Sodium 138.0 mmol/L (137-145) 06/03/20 04:20 Potassium 4.4 mmol/L (3.6-5.0) 06/03/20 04:20 Chloride 104 mmol/L (98-107) 06/03/20 04:20 Carbon Dioxide 23 mmol/L (22-30) 06/03/20 04:20 Anion Gap 11 (5-19) 06/03/20 04:20 BUN 32 mg/dL (7-20) H 06/03/20 04:20 Creatinine 1.10 mg/dL (0.52-1.25) 06/03/20 04:20 Est GFR ( Amer) > 60 (>60) 06/03/20 04:20 Est GFR (MDRD) Non-Af > 60 (>60) 06/03/20 04:20 Glucose 131 mg/dL (75-110) H 06/03/20 04:20 POC Glucose 197 mg/dL (70-110) H 06/03/20 14:04 Calcium 8.7 mg/dL (8.4-10.2) 06/03/20 04:20 Ferritin 211.00 ng/mL (17.9-464.0) 06/02/20 05:33 Total Bilirubin 0.5 mg/dL (0.2-1.3) 06/03/20 04:20 Direct Bilirubin 0.4 mg/dL (0.0-0.4) 06/03/20 04:20 Neonat Total Bilirubin Not Reportable 06/03/20 04:20 Neonat Direct Bilirubin Not Reportable 06/03/20 04:20 Neonat Indirect Bili Not Reportable 06/03/20 04:20 AST 56 U/L (17-59) 06/03/20 04:20 ALT 64 U/L (<50) H 06/03/20 04:20 Alkaline Phosphatase 84 U/L (38-126) 06/03/20 04:20 Lactate Dehydrogenase 253 U/L (120-246) H 06/02/20 05:33 Creatine Kinase 114 U/L (55-170) 06/01/20 05:07 C-Reactive Protein 36.9 mg/L (<10.0) H 06/02/20 05:33 Total Protein 6.5 g/dL (6.3-8.2) 06/03/20 04:20 Albumin 3.2 g/dL (3.5-5.0) L 06/03/20 04:20 Angiotensin Convert Enz 32 U/L (14-82) 06/01/20 05:07 Vitamin D 25-Hydroxy 29.8 ng/mL (14.7-68.3) 06/01/20 05:07 Impressions: Chest/Abdomen CTA 05/31/20 19:31 IMPRESSION: 1. No evidence for PE. 2. Mild to moderate severity acute groundglass opacities suspicious for viral pneumonia. 3. Underlying chronic lung disease including emphysema. 4. Left cardiomegaly. 5. Multiple too many to count small and borderline size lymph nodes. More likely reactive and less likely neoplastic. Is there history of sarcoidosis? Suggest follow-up of this finding. Plan Plan of Treatment: F/u with PCP and pulmonology regarding mediastinal findings on chest CT. F/u regarding obtaining CPAP machine. Time Spent: Greater than 30 Minutes Stroke Is this a Stroke Patient?: No Acute Heart Failure Is this a Heart Failure Patient?: No
--- NOTE | 2020-06-04 07:56 | EKG REPORT ---
SEVERITY:- ABNORMAL ECG - ATRIAL FIBRILLATION, V-RATE 96-125 NONSPECIFIC T ABNORMALITIES, LATERAL LEADS : Confirmed on behalf of: Kiesha Sahu 04-Jun-2020 07:55:40
== END 2020-06-03 15:42 | disposition home or self-care (01) | DRG 177 ==
LOC: ER 19:01 → EH 06-01 06:11 → 3N 06-01 07:06
PROVIDERS: ADMIT Student in an Organized Health Care Education/Training Program; ATTEND Physician Assistant
DX: U07.1 COVID-19 (principal); J12.82 Pneumonia due to coronavirus disease 2019; J96.01 Acute respiratory failure with hypoxia; Z68.41 Body mass index [BMI] 40.0-44.9, adult; E11.9 Type 2 diabetes mellitus without complications; E66.01 Morbid (severe) obesity due to excess calories; J44.9 Chronic obstructive pulmonary disease, unspecified; I48.91 Unspecified atrial fibrillation; I25.10 Atherosclerotic heart disease of native coronary artery without angina pectoris; R59.0 Localized enlarged lymph nodes; E78.00 Pure hypercholesterolemia, unspecified; G47.33 Obstructive sleep apnea (adult) (pediatric); Z87.891 Personal history of nicotine dependence; I25.2 Old myocardial infarction; Z86.73 Personal history of transient ischemic attack (TIA), and cerebral infarction without residual deficits; Z87.11 Personal history of peptic ulcer disease; Z95.2 Presence of prosthetic heart valve; Z88.8 Allergy status to other drugs, medicaments and biological substances; Z79.02 Long term (current) use of antithrombotics/antiplatelets; Z79.899 Other long term (current) drug therapy; Z79.84 Long term (current) use of oral hypoglycemic drugs; Z86.69 Personal history of other diseases of the nervous system and sense organs; Z91.19 Patient's noncompliance with other medical treatment and regimen
CPT/HCPCS: 36415; 71275; 80053; 82164; 82306; 82550; 82728; 82962; 83615; 85025; 85379; 85652; 86140; 87040; 87077; 87150; 87186; 93005; 93010; 96365; 96375; 99285; J0456; J1100; J1815; J3490; S0028